=== PATIENT | male | born 1955 | race Caucasian/White ===

== ENCOUNTER 2021-06-30 08:15 | Outpatient (CLI) | payer MEDICARE, SELFPAY ==
--- NOTE | ~2021-06-30 | PE_ITS ---
EXAMINATION: PET skull to mid thigh DATE: 06/30/2021 11:15 INDICATION: Solitary pulmonary nodule TECHNIQUE: Blood glucose level was 83 mg/dL. 11.783 mCi of 18-fluorodeoxyglucose (18-FDG) was adminis tered i.v. Low dose computed tomography (CT) images were acquired from the base of the brain to the p roximal thighs for attenuation correction and anatomic localization. Positron emission tomography (PE T) images were acquired in the same distribution beginning 65 minutes after injection. Images includi ng fused PET/CT images were reconstructed in axial, coronal, and sagittal planes. Automated exposure control technique was employed. The dose-length product was 322.16mGy-cm. COMPARISON: None FINDINGS: Head/neck: There is symmetric increased activity in the oral cavity, palatine tonsils, parotid glands, submandi bular glands, laryngeal muscles, ocular muscles, scalene, sternocleidomastoid and anterior cervical p araspinal muscles, all without CT correlate, likely physiologic. No pathologically enlarged cervical lymphadenopathy or suspicious foci of increased FDG uptake in the visualized head or neck. Chest: Mild emphysema. There are scattered bilateral calcified pulmonary nodules along with numerous calcifi ed bilateral hilar and mediastinal lymph nodes consistent with old granulomatous disease. There are f ew scattered noncalcified pulmonary nodules all measuring less than 5 mm maximal diameter and without discernible FDG activity on PET although sensitivity for small nodule decide slow. Mild linear disco id atelectasis/scarring the bilateral lower lobes. No dominant solitary pulmonary nodule identified. Recommend correlation with any prior outside imaging. No pulmonary edema, pleural effusion or pneumot horax. Heart size is normal. Atherosclerotic coronary artery calcification. No pericardial effusion. Thoracic aorta is normal in caliber. No pathologically enlarged or FDG avid thoracic lymphadenopathy. Abdomen/pelvis/proximal thighs: Physiologic renal accumulation and excretion of FDG activity in the kidneys, bladder and along portio ns of ureters. Normal degree and heterogenous pattern of increased uptake throughout the liver withou t radiologic correlate or dominant FDG avid lesion. The gallbladder, pancreas, spleen and bilateral a drenal glands are normal. Moderate uptake scattered throughout the bowels without radiologic correlat e, also likely physiologic. No other abnormal foci of increased FDG uptake or pathologically enlarged lymphadenopathy in the abdomen, pelvis or proximal thighs. There is calcified atherosclerosis of the aorta and many of the other arteries. Fusiform ectasia of the infrarenal aorta measuring up to 3.3 c m in maximal diameter. No free intraperitoneal gas or fluid. No pathologically enlarged or FDG avid a bdominal or pelvic lymphadenopathy. Musculoskeletal: Mild thoracolumbar levocurvature. Chronic mild anterior wedging at L1. Mild to moderate thoracolumbar spondylosis. Otherwise mild scattered degenerative skeletal changes. No suspicious lytic, blastic or FDG avid bone lesions. IMPRESSION: 1. Multiple small calcified and noncalcified nodules scattered throughout both lungs the largest nonc alcified nodules measuring no greater than 5 mm and without evident FDG uptake which are most likely sequela of old granulomatous disease. Given the presence of mild emphysema, optional 12 month follow- up low-dose noncontrast chest CT could be obtained. No dominant solitary pulmonary nodule identified as per provided history and would recommend correlation with any prior outside imaging. Reviewed, dictated and finalized at location A. IMPRESSION: 1. Multiple small calcified and noncalcified nodules scattered throughout both lungs the largest noncalc
[2021-06-30 09:15] LABS: Basophils Absolute Auto 0.1 K/mm3 (0.0-0.1); Basophils Percent Auto 1.4 % (0.2-1.2); Eosinophils Absolute Auto 0.2 K/mm3 (0-0.3); Eosinophils Percent Auto 3.7 % (0-4.4); Hemoglobin 13.1 g/dL (14.0-18.0); Immature Granulocyte Absolute 0.02 K/mm3 (0.00-0.031); Immature Granulocyte Percent A 0.3 % (0-0.5); Lymphocytes Absolute Auto 1.65 K/mm3 (0.9-3.2); Lymphocytes Percent Auto 25.7 % (18.3-44.2); Mean Corpuscular Hemoglobin 31.3 pg (26-34); Mean Corpuscular Volume 98.1 fl (80-100); Mean Platelet Volume 9.5 fl (7.4-10.4); Monocytes Absolute Auto 0.6 K/mm3 (0.1-0.6); Monocytes Percent Auto 9.6 % (2.6-8.5); Neutrophils Absolute Auto 3.8 K/mm3 (1.3-6.7); Neutrophils Percent Auto 59.3 % (45.5-73.1); Platelet Count Result 280 k/mm3 (150-375); Red Blood Count 4.18 M/mm3 (4.6-6.20); Red Cell Distribution Width 13.8 % (11.5-14.5); White Blood Count 6.4 K/mm3 (4.5-10.0)
[2021-06-30 09:18] LABS: Glucose Point of Care 83 mg/dl (65-105)
[2021-06-30 10:21] LABS: Alanine Aminotransferase 23 U/L (4-50); Albumin Level 4.3 g/dL (3.5-5.1); Alkaline Phosphatase 123 U/L (38-126); Anion Gap 9 mmol/L (8-16); Aspartate Amino Transferase 28 U/L (17-59); Bilirubin,Total 0.4 mg/dL (0.2-1.3); Blood Urea Nitrogen 12 mg/dL (9-20); Calcium 9.8 mg/dL (8.4-10.2); Carbon Dioxide 25 mmol/L (22-30); Chloride 109 mmol/L (98-107); Cholesterol 155 mg/dL (0-200); Estimated Glomerular Filt Rate > 60; Glucose 100 mg/dL (65-110); HDL Direct 21 mg/dL; Potassium 4.3 mmol/L (3.4-5.0); Sodium 143 mmol/L (137-145); Triglycerides 115 mg/dL (<150)
[2021-06-30 10:32] LABS: LDL Cholesterol Direct 109 mg/dL
[2021-06-30 10:48] LABS: Prostate Specific Antigen 0.2 ng/mL (< OR = 4.0)
== END 2021-06-30 08:16 | disposition home or self-care (01) ==
PROVIDERS: PCP Internal Medicine; Visit Provider Internal Medicine
DX: Z12.5 Encounter for screening for malignant neoplasm of prostate (principal); R91.1 Solitary pulmonary nodule; D64.9 Anemia, unspecified; I10 Essential (primary) hypertension
CPT/HCPCS: 36415; 78815; 80053; 80061; 84153; 85025; A9552; G0103

== ENCOUNTER 2024-08-14 14:16 | Outpatient (CLI) | payer MEDICARE, SELFPAY ==
[2024-08-14 14:56] LABS: Basophils Absolute Auto 0.1 K/mm3 (0.0-0.1); Basophils Percent Auto 0.7 % (0.2-1.2); Eosinophils Absolute Auto 0.1 K/mm3 (0-0.3); Eosinophils Percent Auto 0.8 % (0-4.4); Hematocrit 34.8 % (42.0-52.0); Hemoglobin 11.1 g/dL (14.0-18.0); Immature Granulocyte Absolute 0.03 K/mm3 (0.00-0.031); Immature Granulocyte Percent A 0.3 % (0-0.5); Lymphocytes Absolute Auto 1.05 K/mm3 (0.9-3.2); Lymphocytes Percent Auto 11.6 % (18.3-44.2); Mean Corpuscular HGB Conc 31.9 g/dl (32-36); Mean Corpuscular Hemoglobin 30.9 pg (26-34); Mean Corpuscular Volume 96.9 fl (80-100); Monocytes Absolute Auto 0.5 K/mm3 (0.1-0.6); Monocytes Percent Auto 5.3 % (2.6-8.5); Neutrophils Absolute Auto 7.4 K/mm3 (1.3-6.7); Neutrophils Percent Auto 81.3 % (45.5-73.1); Platelet Count Result 365 k/mm3 (150-375); Red Blood Count 3.59 M/mm3 (4.6-6.20); Red Cell Distribution Width 13.4 % (11.5-14.5); White Blood Count 9.1 K/mm3 (4.5-10.0)
[2024-08-14 15:11] LABS: Alanine Aminotransferase 25 U/L (6-50); Alkaline Phosphatase 137 U/L (38-126); Anion Gap 8 mmol/L (4-12); Aspartate Amino Transferase 32 U/L (17-59); Bilirubin,Total 0.5 mg/dL (0.2-1.3); Blood Urea Nitrogen 25 mg/dL (9-20); Calcium 10.1 mg/dL (8.4-10.2); Carbon Dioxide 25 mmol/L (22-30); Chloride 106 mmol/L (98-107); Cholesterol 104 mg/dL (0-200); Estimated Glomerular Filt Rate 35; Glucose 123 mg/dL (65-110); HDL Direct 27 mg/dL; Potassium 4.3 mmol/L (3.4-5.0); Sodium 139 mmol/L (137-145); Triglycerides 97 mg/dL (<150)
[2024-08-14 15:23] LABS: LDL Cholesterol Direct 53 mg/dL
[2024-08-14 15:41] LABS: Prostate Specific Antigen 0.2 ng/mL (< OR = 4.0)
== END 2024-08-14 14:17 | disposition home or self-care (01) ==
PROVIDERS: PCP Internal Medicine; Visit Provider Internal Medicine
DX: Z12.5 Encounter for screening for malignant neoplasm of prostate (principal); I10 Essential (primary) hypertension
CPT/HCPCS: 36415; 80053; 80061; 84153; 85025

== ENCOUNTER 2024-12-25 13:02 | Outpatient (CLI) | payer MEDICARE, SELFPAY ==
[2024-12-25 14:10] LABS: Basophils Absolute Auto 0.1 K/mm3 (0.0-0.1); Basophils Percent Auto 0.7 % (0.2-1.2); Eosinophils Absolute Auto 0.1 K/mm3 (0-0.3); Hematocrit 34.1 % (42.0-52.0); Hemoglobin 10.6 g/dL (14.0-18.0); Immature Granulocyte Absolute 0.04 K/mm3 (0.00-0.031); Immature Granulocyte Percent A 0.5 % (0-0.5); Lymphocytes Absolute Auto 1.04 K/mm3 (0.9-3.2); Lymphocytes Percent Auto 12.5 % (18.3-44.2); Mean Corpuscular HGB Conc 31.1 g/dl (32-36); Mean Corpuscular Hemoglobin 30.7 pg (26-34); Mean Corpuscular Volume 98.8 fl (80-100); Mean Platelet Volume 9.2 fl (7.4-10.4); Monocytes Absolute Auto 0.6 K/mm3 (0.1-0.6); Monocytes Percent Auto 7.6 % (2.6-8.5); Neutrophils Absolute Auto 6.5 K/mm3 (1.3-6.7); Neutrophils Percent Auto 77.7 % (45.5-73.1); Platelet Count Result 236 k/mm3 (150-375); Red Blood Count 3.45 M/mm3 (4.6-6.20); Red Cell Distribution Width 13.8 % (11.5-14.5); White Blood Count 8.3 K/mm3 (4.5-10.0)
--- OUTSIDE RECORDS SUMMARY | 2024-12-25 14:26 | XMS_ITS | Continuity of Care Document ---
Author Organization [facility] Address [address] [place] [address] Phone Care Team Providers Care Film Casting Operator Name Role Phone Juarez OD, Celio Unavailable Unavailable Procedures Procedure Date Office/outpatient Visit, Est Office/outpatient Visit, Est Eye Exam, New Patient Advance Directives Directive Yes / No Effective Date File Name No Information Encounters Encounter Description Practice Location Reason(s) For Visit Diagnoses Date Provider Providers Copied on Encounter Office/outpat ient Visit, [facility], [address] [place] [address] [address], [place], [place], [id number], tel:[phone] SEC [facility] No Information 8-201 0 Juarez OD Celio. [address], [place], [address], [place]. tel:[phone] Office/outpat ient Visit, [facility], [address] [place] [address] [address], [place], [place], [address], [place] tel:[phone] SEC [facility] No Information 4-201 0 Juarez OD Celio. [address] [facility] [address], [place], [address], [place]. tel:[phone] [facility], [address] [place] [address] [address], [place], [place], [address], tel:[phone] SEC [facility] No Information 3-201 0 Juarez OD Celio. [address] , [address], [place], [address], [place]. tel:[phone] Referring Provider: Dario Lopez [address], [place], [address]. tel:[phone] Family History Family Member Type Diagnosis Age At Onset No Information Payers Payer name Insurance type Covered alliance party ID Authorlorettabeny medina(s) [facility] Commercial CI [id number] Social History Type Description Quantity Date Captured [...]
--- OUTSIDE RECORDS SUMMARY | 2024-12-25 14:26 | XMS_ITS | Continuity of Care Document ---
Author Organization [facility] Address [address] [place] [address] Phone Care Team Providers Care Wire Puller Name Role Phone Usha Aguilar DO Unavailable Unavailable Procedures Procedure Date Physical Exam Respirator Questionnaire Form Review Nov Physical Exam Advance Directives Directive Yes / No Effective Date File Name No Information Encounters Encounter Description Practice Location Reason(s) For Visit Diagnoses Date Provider Providers Copied on Encounter [facility], [address] [place] [address], [id number], tel:[phone] [facility] No Information 9 Lauren Kerr. [address] [place] [address], [place] [address], [place], [place], [id number] , . tel:[phone] Family History Family Member Type Diagnosis Age At Onset No Information Payers Payer name Insurance type Covered constitution party ID Authorgatito romerojonathan(s) [facility] [id number] Social History Type Description Quantity Date Captured [...]
--- OUTSIDE RECORDS SUMMARY | 2024-12-25 14:26 | XMS_ITS | Patient Health Record ---
Author Organization [facility] Address [address] [place] [address] Care Team Providers Care Microstrategy Architect Developer Name Role Phone Bao Collier Unavailable [phone] JUAN GORE Unavailable Unavailable REASON FOR REFERRAL No Information PROBLEMS Problem Type ICD Code Onset Dates Problem Status W/U Status Risk SNOMED Code Notes Problem Type 2 diabetes mellitus with diabetic chronic kidney disease (E11.22) Active confirmed Diabetic renal disease (634096445) Problem Hyperlipidemia, unspecified (E78.5) Active confirmed Hyperlip idemia (52665375) Problem Cerebral infarction, unspecified (I63.9) Active confirmed Cerebral infarction (841875542) Problem Peripheral vascular disease, unspecified (I73.9) Active confirmed Peripheral vasc ular disease (585889529) Problem Renal osteodystrophy (N25.0) Active confirmed Renal osteodyst rophy (62603591) Problem Secondary hyperparathyroidism of renal origin (N25.81) Active confirmed Secondary hyperparathyroidism of renal origin (96349435) Problem Tobacco use (Z72.0) Active confirmed To bacco use (674723830) Problem Essential hypertension (I10) Active confirmed Essential hypertension (50705494) Problem Chronic kidney disease, stage 3b (N18.32) Active confirmed Chronic kidney disease stage 3B (disorder) (903519757) Encounters Encounter Location Date Provider Diagnosis [place] [facility] [address] [place] [address] 12/12/2024 Bao Collier Chronic kidney disea se, stage 3b N18.32 ; Essential hypertension I10 ; Renal osteodystrophy N25.0 ; Secondary hyperparathyroidism of renal origin N25.81 ; Type 2 diabetes mellitus with diabetic chronic kidney disease E11.22 ; Hyperlipidemia, unspecified E78.5 ; Tobacco use Z72.0 ; Cerebral infarction, unspecified I63.9 and Peripheral vascular disease, unspecified I73.9 ASSESSMENTS Encounter Date Diagnosis Assessment Notes Treatment Notes Treatment Clinical Notes [...] Peripheral vascular disease, unspecified (ICD-10 - I73.9) PLAN OF TREATMENT Next Appt Details Provider Name:Bao Collier , 01/02/2025 02:30:00 PM, [address], [facility], [place], [address],
--- OUTSIDE RECORDS SUMMARY | 2024-12-25 14:26 | XMS_ITS | CONTINUITY OF CARE DOCUMENT ---
Author Name jered lawton Address Unknown Organization [facility] Address [address] [address] [place] [address] Phone [phone] Care Team Providers Care Software Validation Technician Name Role Phone Rohan Garza MD Unavailable Dario Lopez MD Unavailable [phone] Dario Lopez MD Unavailable PROBLEMS Condition Status Date Provider Notes Cardiovascular screening active Rohan hernandez MD Carotid artery disease active Rohan swan MD Smoker active Rohan Garza MD HTN essential active Rohan Garza MD CVA active Rohan Garza MD PVD active Rohan Garza MD Cataract, bilateral active Rohan Forbes Abnormal EKG active Rohan Garza MD Dyspnea on exertion active Rohan Forbes Claudication bilateral active Rohan swan MD Bradycardia active Abdi Meehant CAD active Rohan Garza MD Hyperlipidemia active Rohan Garza MD ENCOUNTERS Date Type Provider Location Encounter Diag nosis - In-person encounter Office Visit Rohan Garza MD [place] [facility] - In-person encounter Office Visit Rohan Garza MD [facility] - In-person encounter Office Visit Rohan Garza MD [facility] Hyperlipidemia - In-person encounter Office Visit Rohan Garza MD [facility] BradycardiaCAD - In-person encounter Office Visit Rohan Garza MD [place] Dyspnea on exertionClaudication bilateral - In-person encounter Office Visit Rohan Garza MD [facility] Cardiovascular screeningCarotid artery diseaseSmokerHTN essentialCVAPVDCataract, bilateralAbnormal EKG VITAL SIGNS Date Observation Value Provider Body Mass Index (Ratio) 20.21 kg/m2 Maureen Garza MD blood pressure, diastolic 67 mm[Hg] Malik espino Wilson blood pressure, systolic 114 mm[Hg] Dana gallegos Wilson oxygen saturation, oximetry 100 % [facility] pulse rate 92 /min [facility] weight E&M 125.2 [lb_av] [facility] blood pressure, cuff size regular Malik kenzie Wilson height E&M 66 [in_i] [facility] Body Mass Index (Ratio) 19.85 kg/m2 Maureen Garza MD blood pressure, cuff size regular Carlito bitha Sanchez blood pressure, diastolic 68 mm[Hg] Ta bitha Sanchez blood pressure, systolic 122 mm[Hg] Tab itha Sanchez oxygen saturation, oximetry 100 % Marion Sanchez pulse rate 69 /min Marion Sanchez respiratory rate E&M 12 /min Marion Sanchez weight E&M 123 [lb_av] Marion Sanchez height E&M 66 [in_i] Marion Sanchez Body Mass Index (Ratio) 19.50 kg/m2 Maureen Garza MD blood pressure, cuff size regular Ta bitha Sanchez blood pressure, diastolic 62 mm[Hg] Ta bitha Sanchez blood pressure, systolic 126 mm[Hg] Tab [facility] oxygen saturation, oximetry 99 % [facility] E&[facility] 12 /min [facility] pulse rate 72 /min [facility] weight E&M 120.8 [lb_av] [facility] height E&M 66 [in_i] [facility] Body Mass Index (Ratio) 19.37 kg/m2 Maureen Garza MD blood pressure, cuff size regular [facility] blood pressure, diastolic 58 mm[Hg] [facility] blood pressure, systolic 116 mm[Hg] [facility] oxygen saturation, oximetry 98 % [facility] respiratory rate E&M 14 /min [facility] iller pulse rate 76 /min [facility] weight E&M 120 [lb_av] [facility] height E&M 66 [in_i] [facility] Body Mass Index (Ratio) 19.53 kg/m2 Maureen Garza MD blood pressure, cuff size regular [facility] blood pressure, diastolic 86 mm[Hg] [facility] blood pressure, systolic 141 mm[Hg] [facility] pulse rate 90 /min [facility] oxygen saturation, oximetry 96 % [facility] respiratory rate E&M 16 /min [facility] iller weight E&M 121 [lb_av] [facility] height E&M 66 [in_i] [facility] Body Mass Index (Ratio) 20.01 kg/m2 Maureen Garza MD blood pressure, cuff size regular [facility] blood pressure, diastolic 68 mm[Hg] [facility] blood pressure, systolic 108 mm[Hg] [facility] respiratory rate E&M 16 /min Samia Sanabria iller oxygen saturation, oximetry 97 % Samia Sanchez pulse rate 78 /min Samia Sanchez weight E&M 124 [lb_av] Samia Sanchez height E&M 66 [in_i] Samia Sanchez ALLERGIES No Known Drug Allergies HISTORY OF MEDICATION USE Medication Status Instructions Dates Provider Indications Com ments atorvastatin 40 mg tablet active TAKE 1 TABLET BY MOUTH EVERY DAY oRhan Garza MD cilostazol 100 mg tablet active Take 1 tablet by mouth twice a day Rohan Garza MD diclofenac sodium 75 mg tablet,delayed release (DR/EC) active Rohan Garza MD lisinopril 20 mg tablet active Rohan Garza MD Stiolto Respimat 2.5-2.5 mcg/actuation mist active Rohan Garza MD clopidogrel 75 mg tablet active Take 1 tablet once a day Rohan Garza MD aspirin 81 mg tablet,delayed release (DR/EC) active Take 1 tablet by mouth once a day Rohan Garza MD SOCIAL HISTORY Date Observation Value Provider smoking status Current every day smoker Carmelo Vargas smoking status Current every day smoker Ne Garza MD smoking status Current every day smoker Rachel reynaldo Sanchez smoking status Current every day smoker Rachel reynaldo Sanchez number of grandchildren Rohan Garza MD smoking status Current every day smoker Rachel jacobs Daniel FUNCTIONAL STATUS Date Observation Value Provider HRA, CV Assess/Plan, Angina (inactive) Management Plan continue current therapy Abdi Vargas HRA, CV Assess/Plan, Angina (inactive) Management Plan continue current therapy Rohan Garza MD INSURANCE PROVIDERS Payer name Policy type / Coverage type Mary red green party ID [employer]AGE [address] (HMO POS) Medicare [id number] ADVANCE DIRECTIVES Name Date DISCUSSED - NO DECISION MADE TREATMENT PLAN Date Name Performer Cardiology:This visi t has been a part of the consistent, comprehensive, and ongoing management of the chronic medical condition(s) listed above for the patient. Abdi [facility] Cardiology: T his visit has been a part of the consistent, comprehensive, and ongoing management of the chronic medical condition(s) listed above for the patient. T he Patient was reencouraged to stop smoking. Abdi Meehan Cardiology Abdi [facility] Cardiology:This visi t has been a part of the consistent, comprehensive, and ongoing management of the chronic medical condition(s) listed above for the patient. BP today: 114/67 P rior BP: 122/68 (05/28/2024) His updated medication list for this problem includes: Lisinopril 20 Mg Tablet (Lisinopril) Aspirin 81 Mg Tablet,delayed Release (dr/ec) (Aspirin) ..... Take 1 tablet by mouth once a day Abdi [facility] Cardiology:This visi t has been a part of the consistent, comprehensive, and ongoing management of the chronic medical condition(s) listed above for the patient. Abdi [facility] Cardiology:This visi t has been a part of the consistent, comprehensive, and ongoing management of the chronic medical condition(s) listed above for the patient. His updated medication list for this problem includes: Atorvastatin 40 Mg Tablet (Atorvastatin) ..... Take 1 tablet by mouth every day Abdi [facility] Cardiology:This visi t has been a part of the consistent, comprehensive, and ongoing management of the chronic medical condition(s) listed above for the patient. Abdi Vargas Cardiology Rohan Forbes Cardiology Rohan Forbes Cardiology: H is updated medication list for this problem includes: Lisinopril 20 Mg Tablet (Lisinopril) Aspirin 81 Mg Tablet,delayed Release (dr/ec) (Aspirin) ..... Take 1 tablet by mouth once a day BP today: 122/68 P rior BP: 126/62 (02/27/2024) Rohan Garza MD Cardiology:The Patient was reenc ouraged to stop smoking. Rohan Garza MD Cardiology Rohan Forbes Cardiology:LDL 48 on recent labs c ontinue current medical therapy T his visit has been a part of the consistent, comprehensive, and ongoing management of the chronic medical condition(s) listed above for the patient. H is updated medication list for this problem includes: Atorvastatin 40 Mg Tablet (Atorvastatin) ..... Take 1 tablet by mouth every day Rohan Garza MD Cardiology:Will add atorvastatin 40mg for high LDL of 85. His updated medication list for this problem includes: Atorvastatin 40 Mg Tablet (Atorvastatin) ..... Take 1 tablet by mouth every day Rohan Garza MD Cardiology Rohan Forbes Cardiology:The Patie nt was reencouraged to stop smoking. Rohan Garza MD Cardiology:No CP Rohan Garza MD Cardiology: B P today: 126/62 P rior BP: 116/58 (12/19/2023) His updated medication list for this problem includes: Lisinopril 20 Mg Tablet (Lisinopril) Aspirin 81 Mg Tablet,delayed Release (dr/ec) (Aspirin) ..... Take 1 tablet by mouth once a day Rohan Garza MD Cardiology Rohan Forbes Cardiology Rohan Forbes Cardiology Rohan Forbes Cardiology Rohan Forbes Cardiology: B P today: 116/58 P rior BP: 141/86 (10/24/2023) His updated medication list for this problem includes: Lisinopril 20 Mg Tablet (Lisinopril) Aspirin 81 Mg Tablet,delayed Release (dr/ec) (Aspirin) ..... Take 1 tablet by mouth once a day Rohan Garza MD Cardiology Rohan Forbes Cardiology Rohan Forbes Cardiology Rohan Forbes Cardiology Rohan Forebs Cardiology: B P today: 141/86 P rior BP: 108/68 (08/22/2023) His updated medication list for this problem includes: Lisinopril 20 Mg Tablet (Lisinopril) Aspirin 81 Mg Tablet,delayed Release (dr/ec) (Aspirin) ..... Take 1 tablet by mouth once a day Rohan Garza MD Cardiology Rohan Forbes Cardiology: H is updated medication list for this problem includes: Clopidogrel 75 Mg Tablet (Clopidogrel) Aspirin 81 Mg Tablet,delayed Release (dr/ec) (Aspirin) ..... Take 1 tablet by mouth once a day Rohan Garza MD Cardiology Rohan Forbes Cardiology Rohan Forbes Cardiology Rohan Forbes Cardiology Rohan Forbes Cardiology Rohan Forbes Date Name LIPID PANEL Holter Monitor 48 hr Stress Regadenoson PROTHROMBIN TIME WIT H INR LIPID PANEL CBC (INCLUDES DIFF/P LT) BASIC METABOLIC PANE L W/EGFR Stress Regadenoson LIPID PANEL Arterial Duplex Bi-L ower EX Stress Regadenoson Complete Echo EKG HISTORY OF PROCEDURES Procedure Date Procedure Name Provider Procedure Notes S tatus Complex e/m visit add on Rohan Garza MD completed Complex e/m visit add on Rohan Garza MD completed
--- OUTSIDE RECORDS SUMMARY | 2024-12-25 14:26 | XMS_ITS ---
Author Organization [facility] Address [address] [place] [address] Care Team Providers Care Supervisor Liquid Yeast Name Role Phone Nando Bao Unavailable [phone] JUAN GORE Unavailable Unavailable PROBLEMS Problem Type ICD Code Onset Dates Problem Status W/U Status Risk SNOMED Code Notes Problem Chronic kidney disease, stage 3b (N18.32) Active confirmed Chronic kidney disease stage 3B (disorder) (442926071) Problem Essential hypertension (I10) Active confirmed Essential hypertension (29089889) Problem Renal osteodystrophy (N25.0) Active confirmed Renal osteodyst rophy (98789251) Problem Secondary hyperparathyroidism of renal origin (N25.81) Active confirmed Secondary hyperparathyroidism of renal origin (24635807) Problem Type 2 diabetes mellitus with diabetic chronic kidney disease (E11.22) Active confirmed Diabetic renal disease (790237906) Problem Hyperlipidemia, unspecified (E78.5) Active confirmed Hyperlip idemia (49272578) Problem Tobacco use (Z72.0) Active confirmed To bacco use (373049167) Problem Cerebral infarction, unspecified (I63.9) Active confirmed Cerebral infarction (323422180) Problem Peripheral vascular disease, unspecified (I73.9) Active confirmed Peripheral vasc ular disease (867727433) Encounters Encounter Location Date Provider Diagnosis [place] [facility] [address] [place] [address] 12/12/2024 Bao Collier Chronic kidney disea se, [...] Name:Bao Collier , 01/02/2025 02:30:00 PM, [address] [place] [address], Progress Notes * Greg WOOTEN EDOB:1955 (69 yo M)Acc No.[id number]:12/12/2024 Progress Notes Patient: Greg WOOTEN Provider: MD GISELLE, F.A.C.P, F.A.S.N. :1955 Age:69 Y Sex:Male Date:12/12/2024 Address:[address] [place] [address] Subjective: * Chief Complaints: * * Medical History: Objective: Assessment: * Assessment: 1. Chronic kidney disease, stage 3b - N18.32 (Primary) 2. Essential hypertension - I10 3. Renal osteodystrophy - N25.0 4. Secondary hyperparathyroidism of renal origin - N25.81 5. Type 2 diabetes mellitus with diabetic chronic kidney disease - E11.22 6. Hyperlipidemia, unspecified - E78.5 7. Tobacco use - Z72.0 8. Cerebral infarction, unspecified - I63.9 9. Peripheral vascular disease, unspecified - I73.9 Plan: * Treatment: * Billing Information: * Visit Code: 74856 Office Visit, New Pt., Level 5. * Procedure Codes: * Sign off status: Pending * Provider: MD GISELLE, F.A.C.P, F.A.S.N. Date: 12/12/2024
--- OUTSIDE RECORDS SUMMARY | 2024-12-25 14:26 | XMS_ITS | Data Portability ---
Author Organization [place] - [employer], Main Office Address [address] [place] [address] Care Team Providers Care Photography Assistant Name Role Phone JUAN GORE Primary Care Provider Assessment Encounter Date Assessment Date Assessment LastModified by Organization Details LastModified Time 2024 2024 Assessment: Nicotine smoke: 2 ppd 1980-present = 86 pack years Mild COPD Bilateral subcentimeter pulmonary nodules Lingular bronchiectasis Left basilar atelectasis Plan: The following were reviewed and explained to the patient: Chest CT 04/03/21 24 mm RLL pulmonary nodule, subtle RML miliary densities PET/CT 06/30/21 bilateral granulomatous disease with no FDG uptake Chest CT 04/05/22 numerous bilateral subcentimeter noncalcified pulmonary nodules, bilateral calcified granulomas, mediastinal and hilar calcified lymph nodes Chest CT 05/19/23 similar bilateral pulm nodules and subsegmental atelectasis Lab data 05/05/22 allergic to cat, Anti-MPO 5.8 units, P-ANCA 1:320 titers, C-ANCA 1:80 titers, FRANK speckled 1:[address] 06/12/24 bilateral subcentimeter pulm nodules, lingular bronchiectasis, left basilar atelectasis PFT 05/17/22 FEV1 1.92 L (78%) PFT 07/12/23 FEV1 2.01 L (83%) Patient declined rheumatologic consult. Differential diagnoses for pulmonary nodule: 1. malignant tumor 2. benign tumor 3. inflammatory processes 4. infectious process (viral, bacterial, fungal, atypical mycobacterial) The Fleischner Society pulmonary nodule recommendations below pertain to the follow-up and management of indeterminate pulmonary nodules detected incidentally on CT and are published by the Fleischner Society. The guideline does not apply to lung cancer screening, patients younger than 35 years, or patients with a history of primary cancer or immunosuppression. These recommendations reflect the 2017 revision 4, which supersedes prior versions published in 2005 and 2013. Multiple solid nodules <6 mm (<100 mm3) *low-risk patients: no routine follow-up required *high-risk patients: optional CT at 12 months Multiple solid nodules >6 mm (>100 mm3) *low-risk patients: CT at 3-6 months, then consider CT at 18-24 months *high-risk patients: CT at 3-6 months, then CT at 18-24 months Repeat PFT and chest CT one week before return. Nicotine cessation counseling provided. [place] for quitting nicotine include getting ready, getting support and encouragement, learning new skills and behaviors and being prepared to handle slips. Tips for dealing with cravings provided. Prevention of subsequent illnesses from nicotine addiction discussed. Comorbidities include but are not limited to hypertension, cerebrovascular disease, coronary heart disease, congestive heart failure, hyperlipidemia, COPD/asthma, peptic ulcer disease, esophagitis/gastri tis, and osteoporosis. Therapy options offered include: Quitting by total abstinence Receiving nicotine replacement therapy Undergoing hypnosis Filling a bupropion or varenicline prescription Enrolling in Quit For Life program Registering at [email or web address] Your Imagination Making a call to 2-653-LVXR-NOW ( ). A strong, clear, personalized message was given to the patient to quit smoking. The patient was urged to set a quit date. We discussed patient's barriers to quitting and I will be of assistance when patient is ready to quit. I encouraged patient to inform friends and family of plans to quit with a request for support. I encouraged the patient to remove all cigarettes from the environment. We reviewed any previous quit attempts and lessons learned from them. I encouraged total abstinence from smoking and advised the patient that drinking alcohol and/or associating with other smokers are associated with failure or relapse. Patient can enroll in [facility]'s smoking cessation class through Doretha Funez RN at . Enrollment is free and classes are held every tuesday of the month from 1:30 pm to 2:30 pm at the conference room next to the cafeteria on the ground floor. General information on COPD was covered. COPD affects breathing. Self-care skills such as not smoking, using medications as prescribed, oxygen therapy, and knowing when to contact the healthcare provider are covered. Diaphragmatic breathing and pursed lip breathing are explained and demonstrated. Positive lifestyle changes are introduced. Following these self-care skills will help in the management of COPD so the patient can stay out of the hospital. Continue albuterol 1 puff every 4 hours as needed. Continue Stiolto Respimat 2.5/2.5 mcg 2 puffs daily. The patient does not know how to accurately administer the inhalers. Today, the patient was shown how to take these medications. The proper technique for delivering these medications was instructed. The patient expressed a clear understanding and demonstrated back how to use these medications. Without the proper technique, the patient will not reap the benefits of these medications as the contents will not reach the lower airways as intended to be. Adherence to therapy is advocated. Nonadherence may lead to treatment failure, further progression of the condition, and other complications. Hospitals admissions are often the result of individuals not taking prescription medications accurately. Alternatively, greater adherence to medication regimens have shown to lower rates of hospitalization and decrease total medical costs in patients with chronic medical conditions. Advocated influenza vaccination annually and pneumonia vaccination EDILSON. Encouraged patient to adjust caloric intake to maintain/achieve ideal body weight, emphasizing on fruits, vegetables, whole grains, and fat-free or low-fat products. These include lean meats, poultry, fish, beans, eggs, and nuts and foods that are low in saturated fats, trans-fats, cholesterol, salt (sodium), and glycemic index. Stressed the importance of regular exercise up to the patient's capacity limits. In this case, we recommend 20 min daily walking, 2 days a week of resistance training. Patient to monitor BP daily and bring records to PCP for further management. Follow-up: 1 year, May 2025 [email or web address] Not available 2024 15:44:55 Plan of Treatment Reminders Order Date Submit Date Provider Last Modified By Organization Details Last Modified Time Details Appointments Establish ed Patient 15 2024 11:00A Justino Gore MD Not available Not available Not available Any 30 2024 11:00A Justino Horton MD Not available Not available Not available Lab CBC w/ auto diff [address] Outpatient Registration Lab/Ekg, [address], [place], [address], 12/25/2024 15:05:40 PSA, serum or plasma [address] Lab, [address] [facility] [address] [place] [address], [id number], 11/28/2024 10:52:46 CMP, serum or plasma [address] Lab, [address] [facility] [address] [place] [address], [address], 11/28/2024 10:52:46 lipid panel, serum [address] [facility], [address] [facility] [address] [place] [address], [address], 11/28/2024 13:52:31 CBC w/ auto diff [address] Lab, [address], [address], 11/28/2024 10:52:46 PSA, serum or plasma [address] (Lab), [address] [place], [address], 07/04/2023 09:20:49 CMP, serum or plasma 2022 023 [facility] (Lab), [address] [place], [address], 06/28/2023 15:11:24 lipid panel, serum 2022 023 [facility] (Lab), [address] [place], [address], 06/28/2023 15:11:27 CBC w/ auto diff 2022 023 [facility] (Lab), [address] [place], [address], 06/28/2023 14:44:22 Referral nephrolog ist referral - Please call patient to schedule an appointme nt. Thank you. 2024 025 CHARLA Collier MD (Nephrology, [address], [place], [address], 12/11/2024 18:04:41 Procedures None recorded. Surgeries None recorded. Imaging CT, chest, w/o contrast 2023 025 [facility] Not available 2024 15:52:42 US, duplex, carotid artery 2022 023 [facility] ([facility] Scheduling), [address] [facility], [place], [address], 07/06/2023 11:49:45 Medication Orders albuterol sulfate HFA 90 mcg/actua tion aerosol inhaler 2023 024 [facility]/Pharmacy #[id number], [address], [place], [address], 2024 15:45:05 Stiolto Respimat 2.5 mcg-2.5 mcg/actua tion solution for inhalatio n 2023 024 [facility]/Pharmacy #[id number], [address], [place], [address], 2024 15:45:00 clotrimaz ole-betam ethasone 1 %-0.05 % topical cream [address]/Pharmacy #[id number], [address], [place], [address], 06/12/2024 13:55:25 Patient TargetsNo targets recorded. Patient Instructions Encounter Date Encounter Id Patient Instructions Last Modified By Organization Details Last Modified Time 06/24/2023 [id number] [email or web address] Not available 06/24/2023 11:11:12 04/10/2024 [id number] dementia rating scale-2* Not available 04/10/2024 16:35:23 depression screening* Not available 04/10/2024 16:35:22 alcohol misuse* Not available 04/10/2024 16:35:23 multi-dimensiona l health assessment questionnaire* Not available 04/10/2024 16:35:23 advance directiv es: care instructions Not available 04/10/2024 16:35:22 [place] Advance Directives Not available 04/10/2024 16:35:23 advance care planning: care instructions Not available 04/10/2024 16:35:23 Personalized a lt Plan and Screening Recommendations Advance Directives - Do you have one? Yes You have indicated that you are capable of preparing your advance care directive Advance Directives - Do we have your advance directive on file in your health record? No, please bring in a copy at your earliest convenience Primary Prevention/Interven tion (prevents or decreases the chance of common diseases from occurring) Smoking Risk: Smoker Alcohol Misuse Screening: Negative Weight: Appropriate Physical activity: Need more exercise/physical activity minimum of 10-20 minutes of activity that causes mild breathlessness/day Nutrition: Good Average Refer to attached handout Heart-Healthy Diet: After Your Visit Fall Risk (screened today): Low Refer to attached handout Preventing Falls: After your Visit Vaccines Pneumococcal: Ordered Recommended today Recommended today, but you have declined No further needed Influenza: Your next one in the fall of this year Chronic Disease Risks Stroke: Low Risk Intermediate Risk I have no recommendations Act leigh diagnosis, Continue current treatment plan Heart Attack: Low risk Intermediate Risk I have no recommendations Act leigh diagnosis, Continue current treatment plan Clogging of the Arteries: Low risk Intermediate Risk I have no recommendations Act leigh diagnosis, Continue current treatment plan Diabetes: Low Risk I have no recommendations Secondary Prevention/Interven tion (detects treatable diseases before they may cause symptoms, disability, or ) Prostate Cancer Screening: No digital rectal exam screening necessary Colon Cancer Screening: Colonoscopy In: Ordered Date Screening Last Performed: __2009 Eye Disease Screening: Dementia Risk: Low I have no recommendations Depression Screening: Negative Active diagnosis, Continue current treatment plan [email or web address] Not available 04/10/2024 16:11:35 2024 [id number] complete PFT w/ post bronchodilator spirometry* [email or web address] Not available 2024 15:52:12 Reason for Referral Center Administrator Referral for Ki dney disease Please call patient to schedule an appointment. Thank you. Referring Physician: Juan Gore, Internal Medicine, Encounter Date: 12/06/2024 Results Created Date Observation Date Name Description Value Unit Range Abnormal Flag Note LastModifiedBy Organization Detail LastModifiedTime 06/28/2006/28/2023 CBC/C OMPLE TE BLD COUNT W/DIF F white blood cells 7.2 x10'3 /uL 4.2-10 .8 Not Available [facility] (Lab) [address] [place], [address], 06/28/2023 14:44:22 06/28/2006/28/2023 CBC/C OMPLE TE BLD COUNT W/DIF F red blood cells 4.31 x10'6 /uL 4.10-5 .80 Not Available [facility] (Lab) [address] [place], [address], 06/28/2023 14:44:22 06/28/20 23 06/28/2023 CBC/C OMPLE TE BLD COUNT W/DIF F hemoglobin 13.6 g/dL 13.2-1 7.0 Not Available [facility] (Lab) [address] [place], [address], 06/28/2023 14:44:22 06/28/2006/28/2023 CBC/C OMPLE TE BLD COUNT W/DIF F hematocrit 42.2 % 39.3-5 0.0 Not Available [facility] (Lab) [address] [place], [address], 06/28/2023 14:44:22 06/28/20 23 06/28/2023 CBC/C OMPLE TE BLD COUNT W/DIF F mean red cell volume 97.9 fL 80.0-9 7.0 high Not Available [facility] (Lab) [address] [place], [address], 06/28/2023 14:44:22 06/28/20 23 06/28/2023 CBC/C OMPLE TE BLD COUNT W/DIF F mean red cell hemoglobin 31.6 pg 27.0-3 3.0 Not Available [facility] (Lab) [address] [place], [address], 06/28/2023 14:44:22 06/28/20 23 06/28/2023 CBC/C OMPLE TE BLD COUNT W/DIF F mean RBC HGB concentratio n 32.2 g/dL 31.0-3 6.0 Not Available [facility] (Lab) [address] [place], [address], 06/28/2023 14:44:22 06/28/20 23 06/28/2023 CBC/C OMPLE TE BLD COUNT W/DIF F red cell distribution width 14.2 % 11.8-1 5.5 Not Available [facility] (Lab) [address] [place], [address], 06/28/2023 14:44:22 06/28/20 23 06/28/2023 CBC/C OMPLE TE BLD COUNT W/DIF F platelets 258 x10'3 /uL 150-40 0 Not Available [facility] (Lab) [address] [place], [address], 06/28/2023 14:44:22 06/28/20 23 06/28/2023 CBC/C OMPLE TE BLD COUNT W/DIF F mean platelet volume 9.8 fL 9.0-12 .4 Not Available [facility] (Lab) [address] [place], [address], 06/28/2023 14:44:22 06/28/20 23 06/28/2023 CBC/C OMPLE TE BLD COUNT W/DIF F neutrophils 71.3 % 39.0-7 2.0 Not Available [facility] (Lab) [address] [place], [address], 06/28/2023 14:44:22 06/28/20 23 06/28/2023 CBC/C OMPLE TE BLD COUNT W/DIF F lymphocytes 20.5 % 16.0-4 7.0 Not Available [facility] (Lab) [address] [place], [address], 06/28/2023 14:44:22 06/28/20 23 06/28/2023 CBC/C OMPLE TE BLD COUNT W/DIF F monocytes 5.4 % 5.0-12 .0 Not Available [facility] (Lab) [address] [place], [address], 06/28/2023 14:44:22 06/28/20 23 06/28/2023 CBC/C OMPLE TE BLD COUNT W/DIF F eosinophils 1.4 % 1.0-7. 0 Not Available [facility] (Lab) [address] [place], [address], 06/28/2023 14:44:22 06/28/20 23 06/28/2023 CBC/C OMPLE TE BLD COUNT W/DIF F basophils 1.1 % 0.0-2. 0 Not Available [facility] (Lab) [address] [place], [address], 06/28/2023 14:44:22 06/28/20 23 06/28/2023 CBC/C OMPLE TE BLD COUNT W/DIF F immature granulocytes 0.3 % 0.00-0 .50 Not Available [facility] (Lab) [address] [place], [address], 06/28/2023 14:44:22 06/28/20 23 06/28/2023 CBC/C OMPLE TE BLD COUNT W/DIF F neutrophils, absolute count 5.12 x10'3 /uL 1.5-8. 0 Not Available [facility] (Lab) [address] [place], [address], 06/28/2023 14:44:22 06/28/2006/28/2023 CBC/C OMPLE TE BLD COUNT W/DIF F lymphocytes, absolute count 1.47 x10'3 /uL 1.07-3 .43 Not Available [facility] (Lab) [address] [place], [address], 06/28/2023 14:44:22 06/28/20 23 06/28/2023 CBC/C OMPLE TE BLD COUNT W/DIF F monocytes, absolute count 0.39 x10'3 /uL 0.29-0 .99 Not Available [facility] (Lab) [address] [place], [address], 06/28/2023 14:44:22 06/28/2006/28/2023 CBC/C OMPLE TE BLD COUNT W/DIF F eosinophils, absolute count 0.10 x10'3 /uL 0.02-0 .53 Not Available [facility] (Lab) [address] [place], [address], 06/28/2023 14:44:22 06/28/20 23 06/28/2023 CBC/C OMPLE TE BLD COUNT W/DIF F basophils, absolute count 0.08 x10'3 /uL 0.01-0 .08 Not Available [facility] (Lab) [address] [place], [address], 06/28/2023 14:44:22 06/28/20 23 06/28/2023 CBC/C OMPLE TE BLD COUNT W/DIF F immature granulocytes ,absolute 0.02 x10'3 /uL 0.00-0 .05 Not Available [facility] (Lab) [address] [place], [address], 06/28/2023 14:44:22 06/28/20 23 06/28/2023 CBC/C OMPLE TE BLD COUNT W/DIF F nucleated red blood cells 0.0 % -0 Not Available [facility] (Lab) [address] [place], [address], 06/28/2023 14:44:22 06/28/20 23 06/28/2023 CBC/C OMPLE TE BLD COUNT W/DIF F NRBC# 0.00 x10'3 /uL Not Available [facility] (Lab) [address] [place], [address], 06/28/2023 14:44:22 06/28/2006/28/2023 COMPR EHENS LEIGH METAB OLIC PANEL sodium 143 mmol/ L 137-14 5 Not Available [facility] (Lab) [address] [place], [address], 06/28/2023 15:11:24 06/28/2006/28/2023 COMPR EHENS LEIGH METAB OLIC PANEL potassium 4.3 mmol/ L 3.5-5. 1 Not Available [facility] (Lab) [address] [place], [address], 06/28/2023 15:11:24 06/28/20 23 06/28/2023 COMPR EHENS LEIGH METAB OLIC PANEL chloride 107 mmol/ L 98-107 Not Available [facility] (Lab) [address] [place], [address], 06/28/2023 15:11:24 06/28/20 23 06/28/2023 COMPR EHENS LEIGH METAB OLIC PANEL carbon dioxide 28 mmol/ L 22-30 Not Available [facility] (Lab) [address] [place], [address], 06/28/2023 15:11:24 06/28/20 23 06/28/2023 COMPR EHENS LEIGH METAB OLIC PANEL anion gap 12.3 mmol/ L 14-22 low Not Available [facility] (Lab) [address] [place], [address], 06/28/2023 15:11:24 06/28/20 23 06/28/2023 COMPR EHENS LEIGH METAB OLIC PANEL glucose 130 mg/dL 70-99 high Not Available [facility] (Lab) [address] [place], [address], 06/28/2023 15:11:24 06/28/20 23 06/28/2023 COMPR EHENS LEIGH METAB OLIC PANEL BUN 21 mg/dL 8-19 high Not Available [facility] (Lab) [address] [place], [address], 06/28/2023 15:11:24 06/28/20 23 06/28/2023 COMPR EHENS LEIGH METAB OLIC PANEL creatinine 1.09 mg/dL 0.66-1 .25 Not Available [facility] (Lab) [address] [place], [address], 06/28/2023 15:11:24 06/28/2006/28/2023 COMPR EHENS LEIGH METAB OLIC PANEL GFR >60 Refer ence Range : [place] ge GFR Healt hy Adult : >60 mL/mi n/1.7 3 m2 Chron ic Kidne y Disea se: 15-60 mL/mi n/1.7 3 m2 Kidne y Failu re: <15/m L/min /1.73 m2 www.n iddk. nih.g ov The MDRD study equat ion has not been valid ated in child brie <18 years of age; pregn ant women ; the elder ly >85 years of age; or in some racia l or ethni c subgr oups, such as Hispa nics. Outsi de the valid ated hanh eters , estim ated GFR is less accur ate, requi ring clini sade judgm ent on a case- by-ca se basis . Clini sade inter preta tion for other races and ages must be made by the clini james. The MDRD study equat ion has not been valid ated for the evalu ation of serum creat inine relat ed to nutri anita l statu s or medic ation usage . For perso ns <18 years of age, a pedia tric GFR calcu lator is avail able on the [facility] websi te: https ://merlyn chisholm.o rg/pr ofess ional s/kdo qi/gf r_cal culat or Not Available [facility] (Lab) [address] [place], [address], 06/28/2023 15:11:24 06/28/20 23 06/28/2023 COMPR EHENS LEIGH METAB OLIC PANEL alkaline phosphatase 111 U/L 38-126 Not Available [facility] (Lab) [address] [place], [address], 06/28/2023 15:11:24 06/28/2006/28/2023 COMPR EHENS LEIGH METAB OLIC PANEL alanine aminotransfe rase 24 U/L 0-50 Not Available [facility] (Lab) [address] [place], [address], 06/28/2023 15:11:24 06/28/20 23 06/28/2023 COMPR EHENS LEIGH METAB OLIC PANEL aspartate aminotransfe rase 26 U/L 15-46 Not Available [facility] (Lab) [address] [place], [address], 06/28/2023 15:11:24 06/28/20 23 06/28/2023 COMPR EHENS LEIGH METAB OLIC PANEL bilirubin, total 0.30 mg/dL 0.20-1 .30 Not Available [facility] (Lab) [address] [place], [address], 06/28/2023 15:11:24 06/28/20 23 06/28/2023 COMPR EHENS LEIGH METAB OLIC PANEL calcium 10.2 mg/dL 8.4-10 .2 Not Available [facility] (Lab) [address] [place], [address], 06/28/2023 15:11:24 06/28/2006/28/2023 COMPR EHENS LEIGH METAB OLIC PANEL total protein 7.2 g/dL 6.3-8. 2 Not Available [facility] (Lab) [address] [place], [address], 06/28/2023 15:11:24 06/28/2006/28/2023 COMPR EHENS LEIGH METAB OLIC PANEL albumin 4.2 g/dL 3.0-4. 4 Not Available [facility] (Lab) [address] [place], [address], 06/28/2023 15:11:24 06/28/20 23 06/28/2023 COMPR EHENS LEIGH METAB OLIC PANEL globulin 3.0 g/dL 2.6-4. 2 Not Available [facility] (Lab) [address] [place], [address], 06/28/2023 15:11:24 06/28/2006/28/2023 COMPR EHENS LEIGH METAB OLIC PANEL A/G ratio 1.4 ratio 1.0-2. 0 Not Available [facility] (Lab) [address] [place], [address], 06/28/2023 15:11:24 06/28/2006/28/2023 LIPID PANEL cholesterol 172 mg/dL 140-19 9 NIH TOBIN NSUS RECOM MENDA TION FOR CONNOR STERO L: ADULT CHILD LOW RISK: <200 <170 BORDE RLINE : <200- 239 ----- HIGH RISK: >240 >200 Not Available [facility] (Lab) [address] [place], [address], 06/28/2023 15:11:27 06/28/20 23 06/28/2023 LIPID PANEL triglyceride s 96 mg/dL 0-150 NIH TOBIN NSUS REPOR T RECOM MENDA TION FOR TRIGL YCERI GRACIE: ADULT CHILD LOW RISK: <150 ----- BODER LINE: 150-1 99 ----- HIGH RISK: >200 ----- Not Available [facility] (Lab) [address] [place], [address], 06/28/2023 15:11:27 06/28/2006/28/2023 LIPID PANEL HDL cholesterol 32 mg/dL 40- low Not Available [facility] (Lab) [address] [place], [address], 06/28/2023 15:11:27 06/28/2006/28/2023 LIPID PANEL LDL cholesterol, calculated 121 mg/dL 0-130 NIH TOBIN NSUS REPOR T RECOM MENDA TIONS FOR LDL: ADULT CHILD LOW RISK <130 <110 (OPTI MAL LDL) <100 ----- CLAUDE RLINE : 130-1 59 ----- HIGH RISK: >160 >130 A TRIGL YCERI DE RESUL T >400 INVAL IDATE S THE CALCU LATIO N FOR LDL FRACT IONAT ION - THE LDL RESUL T WILL NOT BE REPOR JD. Not Available [facility] (Lab) [address] [place], [address], 06/28/2023 15:11:27 06/28/20 23 06/28/2023 PSA SCREE N PSA medicare screen 0.20 NG/mL 0.00-4 .00 Not Available [facility] (Lab) [address] [place], [address], 06/28/2023 15:58:08 07/12/2007/12/2023 HEMOG LOBIN A1C HA1C 5.5 % 4.0-6. 0 Diabe marcela Scree jimena Crite roldan: <5.7% Consi stent with absen ce of diabe marcela 5.7-6 .4% Consi stent with incre ased risk for diabe marcela (pred iabet es) >OR=6 .5% Consi stent with diabe marcela REFER ENCE: Diabe marcela Care 2016, 39(Beatty ppl.1 ):s13 -s22 Not Available [facility] (Lab) [address] [place], [address], 07/12/2023 15:05:35 07/06/20 23 07/06/2023 US, duple x, carot id arter y No observ ation record ed. [email or web address] [facility] [address] [place], [address], 07/06/2023 16:41:50 07/31/20 23 07/12/2023 compl ete PFT w/ post [facility] hodil ator vale metry * No observ ation record ed. BARCODE [facility] ([facility] Sched[facility]) [address] [place], [address], 07/31/2023 14:11:50 08/31/20 23 08/30/2023 lower extre mity elect romyo gram (PROC ) No observ ation record ed. Not Available 2022 15:10:01 06/12/20 24 06/12/2024 CT, chest , w/o contr ast No observ ation record ed. [email or web address] [facility] [address] [place], [address], 06/12/2024 13:54:40 Result Notes None recorded. Problems Name Problem SNOMED Code Status Onset Date Resolution Date Notes Provider Name and Address Organization Details Recorded Time Candidiasi s of skin 73054298 Active 2022 Not Available [employer] 3 06:26:40 Hyperglyce tyson 35470198 Active 2022 Not Available [employer] 3 06:26:40 Carotid artery stenosis 97805940 Active 2022 Not Available [employer] 3 06:26:40 Peripheral vascular disease 480249349 Active 2022 legs Juan Gore MD [address] [facility], [place], [address] , [facility] [employer] [facility] 3 15:09:58 Coronary arterioscl erosis 36081708 Active 2023 Juan Gore MD [address], [address], [place], [address] , [facility] [employer] [facility] 4 16:34:30 Low back pain 218756255 Active 2023 Radha vance, RMA null, CT tabulate [facility] [employer] [facility] 4 15:01:41 Kidney disease 64897297 Active 2024 Juan Gore MD [address], [place], [address] , [facility] tabulate [facility] [employer] [facility] 5 14:52:49 Chronic obstructiv e pulmonary disease 88330741 Active Not Available [facility] [facility] 3 06:26:40 Chronic depression 876733938 Active Not Available [facility] 3 06:26:40 Cerebrovas cular accident 752706575 Active Not Available [facility] 3 06:26:40 Anemia 698632526 Active 2017 Not Available [facility] 3 06:26:40 Arthritis 6897882 Active Not Available [facility] 3 06:26:40 Multiple nodules of lung 590934209 Active 2021 Not Available [facility] 3 06:26:40 Multiple nodules of lung 676787514 Completed 202004/06/2021 Not Available [facility] 3 04:53:19 Essential hypertensi on 16314797 Active Not Available [facility] 3 06:26:40 Smoker 12563310 Active 2008 Not Available [facility] 3 06:26:40 Dental caries 09835280 Active Not Available [facility] 3 06:26:40 Notes:Medical History: TIA 1 990 Depression Bilateral cataracts Rhinitis to cat IgE 98 IU/mL Eosinophils 120/uL Hypertension Alpha-1 antitrypsin PiMM 216 mg% Nicotine dependence Mild COPD Anti-MPO 5.8 units P-ANCA 1:320 titers C-ANCA 1:80 titers FRANK speckled 1:160 Bilateral pulmonary nodules Subsegmental atelectasis RAMONE 3.9 x 3.4 cm AAA Normocytic anemia Thoracic DDD Procedure History: Colonoscopies 2008, 2013, 2018 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 Procedures Surgical History Date Name Laterality Status Provider Name and Address Organization Details Recorded Time 4 Medicare Wellness CPT Code, subsequent completed Radha Butt [facility] 08/08/2024 15:01:32 4 Advanced Care Planning completed Radha Butt [facility] 08/08/2024 15:01:31 4 Medicare Wellness CPT Code, subsequent completed Liv Wilson [facility] 04/10/2024 15:22:48 4 Advanced Care Planning completed Roxana Gómez RN [facility] 04/10/2024 16:06:55 3 Medicare Wellness CPT Code, subsequent completed Cecy Batista RN [facility] 02/22/2023 11:23:36 Imaging Results Imaging Date Name Status LastModified by Organization Details LastModified Time 07/06/2023 US, duplex, carotid artery completed [email or web address] [facility] [address] [place], [address], 07/06/2023 16:41:50 07/12/2023 complete PFT w/ post bronchodilator spirometry* completed [facility] ([facility]) [address] [place], [address], 07/31/2023 14:11:50 08/30/2023 lower extremity electromyogram (PROC) [email or web address] Information not available 09/07/2023 15:10:01 06/12/2024 CT, chest, w/o contrast completed [address] [place], [address], 06/12/2024 13:54:40 Procedure Notes None recorded. Medical Equipment None Reported. Allergies No known drug allergies Medications Name Sig Start Date Stop Date Status Note LastModified by Organization Details LastModified Time amoxicillin 500 mg capsule 02/14 completed Not Available Not Available Not Available atorvastati n 40 mg tablet Take 1 tablet every day by oral route. active Not Available Not Available No t Available cilostazol 100 mg tablet Take 1 tablet twice a day by oral route. active Not Available Not Available No t Available azithromyci n 250 mg tablet 09/21 completed Not Available Not Available Not Available lisinopril 20 mg tablet TAKE 1 TABLET BY MOUTH EVERY DAY 2024 active Not Available Not Available Not Avai lable prednisone 20 mg tablet 09/21 completed Not Available Not Available Not Available acetaminoph en 300 mg-codeine 30 mg tablet 02/14 completed Not Available Not Available Not Available clopidogrel 75 mg tablet TAKE 1 TABLET BY MOUTH EVERY DAY 03/02 completed Not Available Not Available Not Available Aspir-Low 81 mg tablet,leatha yed release Take 1 tablet every day by oral route. 05/05 completed Not Available Not Available Not Available clotrimazol e-betametha sone 1 %-0.05 % topical cream APPLY TO THE AFFECTED AND SURROUNDI NG AREAS OF SKIN BY TOPICAL ROUTE 2 TIMES PER DAY IN THE MORNING AND EVENING FOR 2 WEEKS 06/12 completed Not Available Not Available Not Available diclofenac sodium 75 mg tablet,leatha yed release TAKE 1 TABLET BY MOUTH TWICE A DAY NEEDED 2023 active JUDD NOV ok to rf Not Available Not Available Not Available albuterol sulfate HFA 90 mcg/actuati on aerosol inhaler Inhale 1 puff every 4 hours by inhalatio n route as needed. 2023 active Not Available Not Available Not Avai lable Vitamin D2 1,250 mcg (50,000 unit) capsule Take 1 capsule every week by oral route for 90 days. 09/21 completed Not Available Not Available Not Available GaviLyte-N 420 gram oral solution active Not Available Not Available Not Available Prevnar 13 (PF) 0.5 mL intramuscul ar syringe PHARMACIS T ADMINISTE RED IMMUNIZAT ION ADMINISTE RED AT TIME OF DISPENSIN G 10/18 completed Not Available Not Available Not Available Combivent Respimat 20 mcg-100 mcg/actuati on solution for inhalation INHALE ONE PUFF BY MOUTH FOUR TIMES DAILY NEEDED 05/20 completed Not Available Not Available Not Available Stiolto Respimat 2.5 mcg-2.5 mcg/actuati on solution for inhalation INHALE 2 PUFFS BY MOUTH EVERY DAY 2023 active Not Available Not Available Not Avai lable Fluzone High-Dose 2019-20 (PF) 180 mcg/0.5 mL intramuscul ar syringe PHARMACIS T ADMINISTE RED IMMUNIZAT ION ADMINISTE RED AT TIME OF DISPENSIN G 10/18 completed Not Available Not Available Not Available Vitals Date Recorded Body height Body mass index (BMI) Body weight Body temperature Heart rate Oxygen saturation Oxygen saturation in Arterial blood by Pulse oximetry Systolic blood pressure Diastolic blood pressure Provider Name and Address Organization Details Last Updated DateTime 3 165.1 cm 20.5 kg/m2 18166.8 6 g 97.1 [degF] 68 /min 97 % 97 % 138 mm[Hg] 68 mm[Hg] MONO Brown [facility] [employer] 3 11:14:41 Date Recorded Body height Body mass index (BMI) Body weight Body temperature Heart rate Oxygen saturation Oxygen saturation in Arterial blood by Pulse oximetry Systolic blood pressure Diastolic blood pressure Provider Name and Address Organization Details Last Updated DateTime 4 165.1 cm 20 kg/m2 16931.0 8 g 98.7 [degF] 70 /min 98 % 98 % 140 mm[Hg] 70 mm[Hg] Liv Wilson [facility] [employer] 4 15:19:41 Date Recorded Pain severity - 0-10 verbal numeric rating [Score] - Reported Provider Name and Address Organization Details Last Updated DateTime 04/10/2024 0 Roxana Gómez RN [facility] [employer] 04/10/2024 15:47:01 Date Recorded Body height Body mass index (BMI) Body weight Body temperature Heart rate Heart rate Oxygen saturation Oxygen saturation in Arterial blood by Pulse oximetry Respiratory rate Systolic blood pressure Diastolic blood pressure Provider Name and Address Organization Details Last Updated DateTime 4 165.1 cm 20.5 kg/m2 95733.3 g 98.3 [degF] 85 /min 85 /min 98 % 98 % 16 /min 124 mm[Hg] 66 mm[Hg] Genevieve Carey MA [facility] [employer] [facility] 4 15:27:40 Date Recorded Body height Body mass index (BMI) Body weight Body temperature Heart rate Oxygen saturation Oxygen saturation in Arterial blood by Pulse oximetry Systolic blood pressure Diastolic blood pressure Provider Name and Address Organization Details Last Updated DateTime 4 165.1 cm 20.3 kg/m2 33034.2 7 g 97.7 [degF] 90 /min 94 % 94 % 128 mm[Hg] 64 mm[Hg] Radha alejandro Gerardo [facility] [employer] [facility] 4 15:03:13 Date Recorded Body height Body mass index (BMI) Body weight Body temperature Heart rate Oxygen saturation Oxygen saturation in Arterial blood by Pulse oximetry Systolic blood pressure Diastolic blood pressure Provider Name and Address Organization Details Last Updated DateTime 5 165.1 cm 19.6 kg/m2 84688.9 g 97.5 [degF] 97 /min 95 % 95 % 136 mm[Hg] 70 mm[Hg] Radha alejandro Gerardo CT tabulate [facility] [employer] [facility] 5 14:30:09 Social History Question Answer Notes LastModified by Organization Details LastModified Time Tobacco Smoking Status Current Every Day Smoker Not Available [facility] 11/17/2022 04:13:57 Do You Have An Advance Directive? Yes MIGRATION.030 [id number] Information not available 11/17/2022 What Is Your Level Of Alcohol Consumption? None MIGRATION.030 [id number] Information not available 11/17/2022 Are You Blind Or Do You Have Difficulty Seeing? No MIGRATION.030 024598 Information not available 11/17/2022 Is Blood Transfusion Acceptable In An Emergency? Yes [email or web address] Information not available 04/10/2024 What Is Your Level Of Caffeine Consumption? Moderate MIGRATION.030 803104 Information not available 11/17/2022 How Much Tobacco Do You Chew? None MIGRATION.030 613714 Information not available 11/17/2022 What Is Your Code Status? Other [email or web address] Information not available 04/10/2024 In The 14 Days Before Symptom Onset, Have You Had Close Contact With A Laboratory-conf irmed COVID-19 While That Case Was Ill? No MIGRATION.030 [id number] Information not available 11/17/2022 In The 14 Days Before Symptom Onset, Have You Had Close Contact With A Person Who Is Under Investigation For COVID-19 While That Person Was Ill? No MIGRATION.0301 [id number] Information not available 11/17/2022 Are You Currently Employed? No [email or web address] Information not available 04/10/2024 Are You Deaf Or Do You Have Serious Difficulty Hearing? No MIGRATION.0301 [id number] Information not available 11/17/2022 What Type Of Diet Are You Following? REGULAR MIGRATION.030 222912 Information not available 11/17/2022 Which Illicit Or Recreational Drugs Have You Used? None MIGRATION.030 015683 Information not available 11/17/2022 What Is The Highest Grade Or Level Of School You Have Completed Or The Highest Degree You Have Received? [id number] [email or web address] Information not available 04/10/2024 Do You Have An Electrostatic Air Filter? 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 0 [email or web address] Information not available 04/10/2024 Have There Been Any Changes To Your Family Or Social Situation? No MIGRATION.0301 102895 Information not available 11/17/2022 What Is The Fluoride Status Of Your Home? Fluoridated [email or web address] Information not available 02/22/2023 Are There Any Guns Present In Your Home? Yes MIGRATION.0301 [id number] Information not available 11/17/2022 Do You Have A Humidifier? Yes MIGRATION.0301 555649 Information not available 11/17/2022 Do You Use Insect Repellent Routinely? No MIGRATION.0301 957585 Information not available 11/17/2022 Where Do You Live? SingleLevelHouse MIGRATION.0301 138809 Information not available 11/17/2022 Presence Of Domestic Violence No [email or web address] Information not available 02/22/2023 Guns Present In The Home? Yes [email or web address] Information not available 02/22/2023 Are You Able To Care For Yourself? Yes Information not available 02/22/2023 Are You Blind Or Do Yo Have Difficulty Seeing? No Cataracts [email or web address] Information not available 02/22/2023 Are You Deaf Or Do You Have Serious Difficulty Hearing? No [email or web address] Information not available 02/22/2023 General Stress Level? Moderate [email or web address] Information not available 02/22/2023 Live Alone Of With Others? Alone [email or web address] Information not available 04/10/2024 Do You Have A Medical Power Of Agricultural Adviser? Yes [email or web address] Information not available 04/10/2024 Do You Have Moisture Problems In Your Home? No MIGRATION.0301 [id number] Information not available 11/17/2022 What Was The Date Of Your Most Recent Tobacco Screening? 04/10/2024 [email or web address] Information not available 04/10/2024 How Many Children Do You Have? 0 [email or web address] Information not available 04/10/2024 What Is Your Current Pack Years? [email or web address] Information not available 02/22/2023 Do You Have Any Pets? Yes [email or web address] Information not available 04/10/2024 What Is Your Relationship Status? [email or web address] Information not available 04/10/2024 Do You Use Your Seat Belt Or Car Seat Routinely? Yes [email or web address] Information not available 04/10/2024 Are You Sexually Active? No [email or web address] Information not available 04/10/2024 Do You Have Smoke And Carbon Monoxide Detectors In Your Home? Yes States Does Have Thiem [email or web address] Information not available 04/10/2024 At What Age Did You Start Smoking Tobacco? 16 MIGRATION.0301 [id number] Information not available 11/17/2022 Are You Passively Exposed To Smoke? No MIGRATION.0301 [id number] Information not available 11/17/2022 Are There Any Smokers In Your House? No [email or web address] Information not available 04/10/2024 How Much Tobacco Do You Smoke? 1 PPD As Of 04/10/2024 States Down To A Pack A Week. [email or web address] Information not available 04/10/2024 What Types Of Sporting Activities Do You Participate In? None [email or web address] Information not available 04/10/2024 Do You Feel Stressed (tense, Restless, Nervous, Or Anxious, Or Unable To Sleep At Night)? [id number] [email or web address] Information not available 04/10/2024 Do You Use Any Illicit Or Recreational Drugs? No [email or web address] Information not available 04/10/2024 Do You Use Sunscreen Routinely? No MIGRATION.0301 217541 Information not available 11/17/2022 Has Tobacco Cessation Counseling Been Provided? Yes Offered And Refused [email or web address] Information not available 04/10/2024 How Many Years Have You Smoked Tobacco? 51 [email or web address] Information not available 02/22/2023 Have You Recently Traveled Abroad? No MIGRATION.0301 209666 Information not available 11/17/2022 Do You Have Any Dietary Restrictions? No [email or web address] Information not available 04/10/2024 Do You Or Have You Ever Used Any Other Forms Of Tobacco Or Nicotine? No [email or web address] Information not available 04/10/2024 Sex: Male Functional Status Question Answer Note LastModified by [employer] Details LastModified Time Do you have difficulty walking or climbing stairs? No MIGRATION.[id number] 026 Information not available 11/17/2022 Do you have transportation difficulties? No MIGRATION.3013128 026 Information not available 11/17/2022 Are you able to walk? YESWOREST MIGRATION.1666730 026 Information not available 11/17/2022 Do you have difficulty doing errands alone? No MIGRATION.9288285 026 Information not available 11/17/2022 Are you able to care for yourself? Yes MIGRATION.[id number] 026 Information not available 11/17/2022 Do you have difficulty dressing or bathing? No MIGRATION.[id number] 026 Information not available 11/17/2022 What is your exercise level? None [email or web address] Information not available 04/10/2024 Mental Status Question Answer Note LastModified by [employer] Details LastModified Time Do you have difficulty concentrating, remembering or making decisions? No moments of forgetfulness [email or web address] Information not available 04/10/2024 Family History Relationship Description Onset Age of this Age Resolved Age Notes LastModified by Organization Details LastModified Time Mother Liver cell carcinoma MIGRATION.443 [id number] Not available 11/17/2022 04:43:58 Medical History No medical history recorded. Immunizations Vaccine Type Date Status Note Provider Nam e and Address Organization Details Recorded Time COVID-19, mRNA, LNP-S, PF, marisol-sucrose, 30 mcg/0.3 mL 4 completed SAUL Harp, CT tabulate [facility] [employer] 08/07/2024 15:19:44 influenza, unspecified formulation 4 completed SAUL Harp, [employer] [place] [facility] [employer] 08/07/2024 15:20:57 Influenza, high-dose, quadrivalent, PF 3 completed Juan Gore MD [address], [address], [facility] tabulate [facility] [employer] 06/24/2023 13:23:38 COVID-19, mRNA, LNP-S, PF, 30 mcg/0.3 mL dose 2 completed Not Available [facility] 08/09/2023 06:26:40 SARS-COV-2 (COVID-19) vaccine, UNSPECIFIED 1 completed Not Available [facility] 08/09/2023 06:26:40 SARS-COV-2 (COVID-19) vaccine, UNSPECIFIED 1 completed Not Available [facility] 08/09/2023 06:26:40 SARS-COV-2 (COVID-19) vaccine, UNSPECIFIED 1 completed Not Available [facility] 08/09/2023 06:26:40 Pneumococcal conjugate PCV 13 9 completed Not Available [facility] 08/09/2023 06:26:40 Influenza, high-dose, quadrivalent, PF 9 completed Not Available [facility] 08/09/2023 06:26:40 Influenza, high-dose, quadrivalent, PF 2 completed Not Available [facility] 08/09/2023 06:26:40 Influenza, high-dose, quadrivalent, PF 1 completed Not Available [facility] 08/09/2023 06:26:40 Influenza, high-dose, quadrivalent, PF 0 completed Not Available [facility] 08/09/2023 06:26:40 Pneumococcal conjugate PCV 13 7 completed Not Available [facility] 08/09/2023 06:26:40 Influenza, split virus, quadrivalent, preservative 6 completed Not Available [facility] 08/09/2023 06:26:40 pneumococcal polysaccharide PPV23 5 completed Not Available [facility] 08/09/2023 06:26:40 Influenza, split virus, quadrivalent, PF 9 completed Not Available [facility] 08/09/2023 06:26:40 Influenza, split virus, trivalent, preservative 4 completed Not Available [facility] 08/09/2023 06:26:40 Influenza, split virus, trivalent, preservative 3 completed Not Available [facility] 08/09/2023 06:26:40 Past Encounters Encounter ID Performer Location Encounter Start Date Encounter Closed Date Diagnosis/Indication Diagnosis SNOMED-CT Code Diagnosis ICD10 Code Diagnosis Note [id number] [facility] [address] [place] [address] 02/17/2021 00:00:00 02/17/2021 12:33:19 [id number] [facility] [address] [place] [address] 06/22/2021 00:00:00 06/22/2021 12:59:34 [id number] [facility] [address] [address] 10/23/2021 00:00:00 10/23/2021 10:34:10 [id number] [facility] [address] [place] [address]. [place] [address] 02/24/2022 00:00:00 02/24/2022 13:29:20 [id number] [facility] [address] [address] 05/05/2022 00:00:00 05/20/2022 15:17:52 [id number] [facility] [address] [address] 05/20/2022 00:00:00 05/20/2022 15:36:54 [id number] [facility] Internal Med [address] [place] [address] 06/29/2022 00:00:00 06/29/2022 12:42:06 [id number] [facility] [address] [address] 08/19/2022 00:00:00 08/19/2022 12:24:58 [id number] Juan Gore MD [facility] Internal Med [place] [address] [facility] [address] 02/22/2023 11:06:30 02/22/2023 11:38:41 Cerebrovascular accident 454693392 I63.9 on meds, no recurrence Chronic ob structive pulmonary disease 41808830 J44.9 better with inhalers Low back pain 597783114 M54.50 meds help Essential hypertension 87757108 I10 under control Anemia 306024294 D64.9 improved, labs next time Arthritis 0564362 M19.90 meds help prn Smoker 34554911 F17.200 advised to quit Multiple n odules of lung 100482625 R91.8 needs LDCT every year, Chronic depression 61107 0009 F34.1 no meds needed Adult heal th examination 969338500 Z00.00 Screening for disorder 407270339 Z13.9 Screening for malignant neoplasm of colon 533301099 Z12.11 [id number] Tenzin Horton MD [facility] [address] [place] [address] 05/31/2023 11:46:55 06/01/2023 08:49:18 Chronic obstructive pulmonary disease 06109869 J44.9 Multiple n odules of lung 641419651 R91.8 Smoker 08273193 F17.218 F17.219 Z87.998 [id number] Juan Gore MD [facility] Internal Med [place] [address] [facility] [place] [address] 06/24/2023 10:59:44 06/24/2023 11:49:26 Essential hypertension 19659629 I10 under control Chronic ob structive pulmonary disease 35171521 J44.9 inhalers HELP Cerebrovas cular accident 507615105 I63.9 on meds, no recurrence Low back pain 460337690 M54.50 meds help Anemia 687403914 D64.9 improved, Arthritis 0633017 M19.90 meds help prn Smoker 39253491 F17.200 advised to quit Multiple n odules of lung 277229493 R91.8 needs LDCT every year, Chronic depression 97459 000 F34.1 no meds needed Adult heal th examination 777214317 Z00.00 Colonoscop y 2015 nl, 10yrsP, 07/10Pneum ovax 04/2015Pre vnar 12/2016, 07/2019FLU - 06/24/2023 COVID- 12/18/20, 01/08/21 Administra tion of influenza vaccine 46845130 Z23 Screening for malignant neoplasm of prostate 213470910 Z12.5 Carotid bruit 397542640 R09.89 Candidiasis of skin 4988 3006 B37.2 [id number] Juan Gore MD [facility] [address] [place] [address] 04/10/2024 15:08:10 04/10/2024 16:42:22 Essential hypertension 16144226 I10 under control Chronic ob structive pulmonary disease 80632240 J44.9 better with inhalers Cerebrovas cular accident 077223046 I63.9 on meds, no recurrence Low back pain 320326779 M54.50 meds help Arthritis 9032841 M19.90 meds help prn Smoker 90339204 F17.200 advised to quit , has cut down Multiple n odules of lung 834629828 R91.8 needs LDCT every year, Chronic depression 000 F34.1 no meds needed Adult heal th examination 121509462 Z00.00 Colonoscop y 2015 nl, 10yrsPSA, 07/11Pneum ovax 04/2015Pre vnar 12/2016, 07/2019FLU - 06/24/2023 COVID- 12/18/20, 01/08/21 Screening for disorder 710171500 Z13.9 Coronary arteriosclerosis 91854284 I25.10 on meds Peripheral vascular disease 864064656 I73.9 symptoms are better Carotid ar austen stenosis 64062576 I65.29 on plavix [id number] Tenzin Horton MD [facility] [place] [address] [place] [address], [facility] [address] [place] [address] 2024 14:55:06 06/14/2024 14:58:32 Chronic obstructive pulmonary disease 11092530 J44.9 Multiple n odules of lung 761819971 R91.8 Smoker 82357399 F17.218 F17.219 Z87.846 [id number] Juan Gore MD [facility] Internal Med [place] [address] [facility] [address] 08/08/2024 14:51:39 08/08/2024 15:39:00 Essential hypertension 20752318 I10 under control Chronic ob structive pulmonary disease 82096176 J44.9 under control Cerebrovas cular accident 167466370 I63.9 on meds, no recurrence Low back pain 584226881 M54.50 meds help Arthritis 2537630 M19.90 meds help prn Smoker 48999727 F17.200 advised to quit , has cut down Multiple n odules of lung 209143146 R91.8 needs LDCT every year, Chronic depression 73513 0009 F34.1 no meds needed Adult heal th examination 867215607 Z00.00 Colonoscop y 2016 nl, 10yrsPSA, 07/11Pneum ovax 04/2015Pre vnar 12/2016, 07/2019FLU - 08/06/2024 (sc;april )COVID- 12/18/20, 01/08/21 Coronary arteriosclerosis 51489537 I25.10 on meds Peripheral vascular disease 809806866 I73.9 symptoms are better Carotid ar austen stenosis 67601656 I65.29 on plavix Screening for malignant neoplasm of prostate 703949023 Z12.5 [id number] Juan Gore MD [facility] Internal Med [facility] [address] [facility] [address] 12/06/2024 14:21:26 12/06/2024 15:13:07 Essential hypertension 36055677 I10 under control Chronic ob structive pulmonary disease 67276698 J44.9 under control Cerebrovas cular accident 356257632 I63.9 on meds, no recurrence Low back pain 101060845 M54.50 tylenol Arthritis 4269237 M19.90 tylenol Smoker 63570361 F17.200 advised to quit , has cut down Multiple n odules of lung 647015812 R91.8 needs LDCT every year, Chronic depression 52413 0009 F34.1 no meds needed Adult heal th examination 446368123 Z00.00 Colonoscop y 2016 nl, 10yrsPSA, 08/14/24Pn eumovax 04/2015Pre vnar 12/2016, 07/2019FLU - 08/06/2024 (juan carlos )COVID- 12/18/20, 01/08/21 Coronary arteriosclerosis 35763917 I25.10 on meds Peripheral vascular disease 119280600 I73.9 symptoms are better Carotid ar austen stenosis 63484368 I65.29 on plavix Kidney disease 72360583 N08 Anemia 203307903 D64.9 Health Concerns Section Related Observation LastModified by Organization Detai ls LastModified Time None Recorded Concern Status LastModified by Organization Details LastModified Time None Recorded Advance Directives Directive Y: Payers Encounter Date Sequence Insurance Name Policy Number Policy Guajardo Covered Member ID Guajardo Member ID Guarantor Name 06/24/2023 1 [facility] - MEDICARE COMPLETE - POS (MEDICARE REPLACEMENT HMO) [id number] Greg Srivastava [id number] Greg Srivastava 04/10/2024 1 [facility] - MEDICARE COMPLETE - POS (MEDICARE REPLACEMENT HMO) [id number] Greg Srivastava [id number] Greg Srivastava 2024 1 [facility] - MEDICARE COMPLETE - POS (MEDICARE REPLACEMENT HMO) [id number] Greg Srivastava [id number] Greg Srivastava 08/08/2024 1 [facility] - [facility]IC[facility] COMPLETE - POS (MEDICARE REPLACEMENT HMO) [id number] Greg Srivastava [id number] Greg Srivastava 12/06/2024 1 [facility] - MEDICARE COMPLETE - POS (MEDICARE REPLACEMENT HMO) [id number] [facility] Carola [id number] Greg Srivastava Notes Date Note Type Note Provider Name and Address Organization Details Recorded Time 06/24/2023 text/html Doing fine, comp liant to medications, no side affects, here for follow up.C/O SORES ON THE BUTTOCKS, SITS A LOTCOPD-under control, o2 sat 97%Meds- alb inhaler 1 puff QID prn, stiolto qdHTN- bp is under control with medsMeds- Lisinopril 20 mg dailyHe had CVA in the past, no deficit, no recurrenceMeds- Aspirin 81 mg daily and Plavix 75 mg dailyDepression- under control without medsSmoker- has been advised to quit, LDCT- 03/2021, suspicious lesion, PET scan done in 07/09 showed benign old granulomatous disease, CT chest 04/09, benign, seen pulm dr Horton, last CT was 05/19, no increase in the sizevit d def- on otcOsteoarthritis-med s it helps, mostly hands, no pain in other jointsMeds- Diclofenac 75 mg BID prn, usually takes 4x a weekh/o Anemia- improved has taken iron in the past Juan Gore MD [address] [facility], [facility] [address], [place], [address], [place] [facility] [employer] 06/24/2023 13:23:42 04/10/2024 text/html Doing fine, comp liant to medications, no side affects, here for follow up. CAD- s/p card cath, Dr Ledesma, PVD- s/o stentsCOPD-under control, o2 sat 98%, no cough or wheezing, seen Dr Horton, PFT 09/10Meds- alb inhaler 1 puff QID prn, stiolto qdHTN- bp is under control with medsMeds- Lisinopril 20 mg daily, He had CVA in the past, no deficit, no recurrenceMeds- Aspirin 81 mg daily and Plavix 75 mg dailyDepression- under control without medsSmoker- he has cut down to 1/ 2 ppd, has been advised to quit, LDCT- 03/2021, suspicious lesion, PET scan done in 07/09 showed benign old granulomatous disease, last LDCT 05/12vit d def- on otcOsteoarthritis-med s it helps, mostly hands, no pain in other jointsMeds- Diclofenac 75 mg BID prn, usually takes 4x a weekh/o Anemia- improved has taken iron in the past Carotid artery stenosis- 70%, seen cardiology, Dopplers 07/11 Juan Gore MD [address] [facility], [facility] [address], [place], [address], [facility] [employer] 04/11/2024 08:35:35 2024 text/html Primary care/Referring provider: Juan Gore MD Patient is here to go over his PFT and chest CT as part of his COPD and pulm nodules management.Initial development of shortness of breath: 2014Duration of shortness of breath: 10 yearsCondition of shortness of breath: stableTiming of shortness of breath: noneFrequency: up to 2 times a dayLimits activities: yesAggravating factors: walking one mileAlleviating factors: restModified Medical [employer] [place] (mMRC) Dyspnea Scale - Grade 1Grade 0 I only get breathless with strenuous exercise .Grade 1 I get short of breath when hurrying on the level or walking up a slight hill .Grade 2 I walk slower than people of the same age on the level because of breathlessness or have to stop for breath when walking at my own pace on the level .Grade 3 I stop for breath after walking about 100 yards or after a few minutes on the level .Grade 4 I am too breathless to leave the house or I am breathless when dressing .Treatment history:Combivent Respimat 1 puff 4 times a day as needed. He uses this twice a day, usually.Other symptoms:Productive cough: noWheezing: noChest tightness: yesOrthopnea: noFrequent throat clearing or swallowing: noPalpitations: noHeartburn: noDysphagia: noEdema: noEnvironmental exposures:Nicotine smoke: 2 ppd 1980-present = 86 pack yearsPaint: yesDye: noDust mites: yesMold: noDamp basement: noWood burning stove: noAnimal dander: noCockroaches: noPollen: yesArsenic: noAsbestos: noBeryllium: noCadmium: noChromium: noCoal smoke: noDiesel fumes: noNickel: noSilica: noSoot: noEPWORTH SLEEPINESS SCALE (ESS)CHANCE OF DOZING SCORE0 = would never doze1 = slight chance of dozing2 = moderate chance of dozing3 = high chance of dozingSITUATION AND CHANCE OF DOZINGSitting and reading - 0Watching television - 0Sitting inactive in a public place (e.g. a theater or meeting) - 0As a passenger in a car for an hour without a break - 0Lying down to rest in the afternoon when circumstances permit - 0Sitting and talking to someone - 0Sitting quietly after lunch without alcohol - 0In a car, while stopped for a few minutes in the traffic - 0TOTAL SCORE 0Subjectively, patient has no chance of dozing. Tenzin Horton MD [address] [place] [address], [facility] [address], [place], [address], [place] - [facility] [email or web address] 2024 15:56:06 08/08/2024 text/html Doing fine, comp liant to medications, no side affects, here for follow up.PT IS NOT FASTING ( [facility] ) CAD- s/p card cath, Dr Ledesma, PVD- s/o stents, no pain in the legs but easily gets tiredCOPD-under control, o2 sat 94%, no cough or wheezing, seen Dr Horton, PFT 09/10Meds- alb inhaler 1 puff QID prn, stiolto qdHTN- bp is under control with medsMeds- Lisinopril 20 mg daily, He had CVA in the past, no deficit, no recurrenceMeds- Aspirin 81 mg daily and Plavix 75 mg dailyDepression- under control without medsSmoker- he has cut down to 1/ 2 ppd, has been advised to quit, LDCT- 03/2021, suspicious lesion, PET scan done in 07/09 showed benign old granulomatous disease, last LDCT 05/12seen pulm Dr Jennifer burgess def- on otcOsteoarthritis-med s it helps, mostly hands, no pain in other jointsMeds- Diclofenac 75 mg BID prn, usually takes 4x a weekh/o Anemia- improved has taken iron in the past Carotid artery stenosis- 70%, seen cardiology, Dopplers 07/11 Juan Gore MD [address] [facility] [address], [address], [place], [address], [employer] 08/08/2024 15:37:17 12/06/2024 text/html Doing fine, comp liant to medications, no side affects, here for follow up.PT IS FASTING ( [facility] ) CAD- s/p card cath, Dr Ledesma, NO CP OR SOB PVD- s/o stents, no pain in the legs but easily gets tiredCOPD-under control, seen Dr Horton, PFT 09/10Meds- alb inhaler 1 puff QID prn, stiolto qd Kidney disease- rec to see nephrologyHTN- bp is under control with medsMeds- Lisinopril 20 mg daily He had CVA in the past, no deficit, no recurrenceMeds- Aspirin 81 mg daily and Plavix 75 mg dailyDepression- under control without medsSmoker- he has cut down to 1/ 2 ppd, has been advised to quit, LDCT- 03/2021, suspicious lesion, PET scan done in 07/09 showed benign old granulomatous disease, last LDCT 05/12se puljustino burgess def- on otcOsteoarthritis-med s helps, mostly hands, no pain in other jointsMeds- NOT on Diclofenac due to kidney diseaseh/o Anemia- improved has taken iron in the past Carotid artery stenosis- 70%, seen cardiology, Dopplers 07/11 Juan Gore MD [address], [address], [place], [address], [employer] 12/06/2024 14:58:37
== END 2024-12-25 13:03 | disposition home or self-care (01) ==
PROVIDERS: PCP Internal Medicine; Visit Provider Internal Medicine
DX: D64.9 Anemia, unspecified (principal)
CPT/HCPCS: 36415; 85025

== ENCOUNTER 2025-01-09 13:43 | Outpatient (CLI) | payer MEDICARE, SELFPAY ==
--- NOTE | ~2025-01-09 | US_ITS ---
EXAMINATION: US retroperitoneal comp DATE: 01/09/2025 14:41 INDICATION: Chronic kidney disease TECHNIQUE: Multiple ultrasound grayscale images of the kidneys were obtained. COMPARISON: None. FINDINGS: The right kidney measures 9.9 x 3.8 x 4.1 cm. The left kidney measures 7.9 x 3.3 x 3.6 cm. 2.5 simila r anechoic cyst at the right kidney. There is bilateral diffuse increased renal cortical echogenicity consistent with medical renal disease. There is no hydronephrosis in either kidney. No stones ident ified. The bladder is normal. Central prostatic calcifications. IMPRESSION: 1. Diffuse bilateral increased renal cortical echogenicity consistent with medical renal disease. No hydronephrosis. Reviewed, dictated and finalized at location A. IMPRESSION: 1. Diffuse bilateral increased renal cortical echogenicity consistent with med ical renal disease. No hydronephrosis.
--- OUTSIDE RECORDS SUMMARY | 2025-01-09 15:29 | XMS_ITS | Data Portability ---
Author Organization [place] - [employer], Main Office Address [address] [place] [address] Care Team Providers Care [employer] Crewmember Name Role Phone JUAN GORE Primary Care Provider [phone] Assessment Encounter Date Assessment Date Assessment LastModified [...] week before return. Nicotine cessation counseling provided. [place] for quitting nicotine include getting ready, getting [...] in Quit For Life program Registering at [email or web address] Making a call to 8-259-BSYC-NOW ( ). A strong, clear, personalized message [...] failure or relapse. Patient can enroll in [facility]'s smoking cessation class through Doretha Funez [...] further management. Follow-up: 1 year, May 2025 Not available 2024 15:44:55 Plan of Treatment Reminders Order Date Submit Date Provider Last Modified By Organization Details Last Modified Time Details Appointments Establish ed Patient 15 2024 11:00A Justino Gore MD Not available Not available Not available Any 30 2024 11:00A Justino Horton MD Not available Not available Not available Lab CBC w/ auto diff 2024 025 [facility] Outpatient Registration Lab/Ekg, [address], [place], [address], 12/25/2024 21:07:24 PSA, serum or plasma [address] Lab, [address] [facility] [address] [place] [address], [id number], 11/28/2024 10:52:46 CMP, serum or plasma [address] Lab, [address] [facility] [address] [place] [address], [id number], 11/28/2024 10:52:46 lipid panel, serum 2023 024 [facility] Lab, [address] [facility] [address] [place] [address], [address], 11/28/2024 13:52:31 CBC w/ auto diff [address] Lab, [address] [facility] [address] [place] [address], [id number], 11/28/2024 10:52:46 PSA, serum or plasma [address] (Lab), [address] [place], [address], 07/04/2023 09:20:49 CMP, serum or plasma 2022 023 [facility] (Lab), [address] [place], [address], 06/28/2023 15:11:24 lipid panel, serum 2022 023 [facility] (Lab), [address] [place], [address], 06/28/2023 15:11:27 CBC w/ auto diff 2022 023 [facility] (Lab), [address] [place], [address], 06/28/2023 14:44:22 Referral nephrolog ist referral - Please call patient to schedule an appointme nt. Thank you. 2024 025 CHARLA Collier MD (Nephrology, [address], [address], [place], [address], 12/11/2024 18:04:41 Procedures None recorded. Surgeries None recorded. Imaging CT, chest, w/o contrast 2023 025 [facility] Not available 2024 15:52:42 US, duplex, carotid artery 2022 023 [facility] (One Call Scheduling), [address] [facility], [place], [address], 07/06/2023 11:49:45 Medication Orders albuterol sulfate HFA 90 mcg/actua tion aerosol inhaler 2023 024 [facility]/Pharmacy #[id number], [address], [place], [address], 2024 15:45:05 Stiolto Respimat 2.5 mcg-2.5 mcg/actua tion solution for inhalatio n 2023 024 [facility]/Pharmacy #[id number], [address], [place], [address], 2024 15:45:00 clotrimaz ole-betam ethasone 1 %-0.05 % topical cream [address]/Pharmacy #[id number], [address], [place], [address], 06/12/2024 13:55:25 Patient TargetsNo targets recorded. Patient Instructions Encounter Date Encounter Id Patient Instructions Last Modified By Organization Details Last Modified Time 06/24/2023 [id number] [email or web address] Not available 06/24/2023 11:11:12 04/10/2024 [id number] dementia rating scale-2* Not available 04/10/2024 16:35:23 depression screening* Not available 04/10/2024 16:35:22 alcohol misuse* Not available 04/10/2024 16:35:23 multi-dimensiona l health assessment questionnaire* Not available 04/10/2024 16:35:23 advance directiv es: care instructions Not available 04/10/2024 16:35:22 [place] Advance Directives Not available 04/10/2024 16:35:23 advance [...] Negative Active diagnosis, Continue current treatment plan [email or web address] Not available 04/10/2024 16:11:35 2024 [id number] complete PFT w/ post bronchodilator spirometry* Not available 2024 15:52:12 Reason for Referral Benefits Administrator Referral for Ki dney disease Please call patient to schedule an appointment. Thank you. Referring Physician: Juan Gore, Internal Medicine, Encounter Date: 12/06/2024 Results Created Date Observation Date Name Description Value Unit Range Abnormal Flag Note LastModifiedBy Organization Detail LastModifiedTime 06/28/2006/28/2023 CBC/C OMPLE TE BLD COUNT W/DIF F white blood cells 7.2 x10'3 /uL 4.2-10 .8 Not Available [facility] (Lab) [address] [place], [address], 06/28/2023 14:44:22 06/28/2006/28/2023 CBC/C OMPLE TE BLD COUNT W/DIF F red blood cells 4.31 x10'6 /uL 4.10-5 .80 Not Available [facility] (Lab) [address] [place], [address], 06/28/2023 14:44:22 06/28/2006/28/2023 CBC/C OMPLE TE BLD COUNT W/DIF F hemoglobin 13.6 g/dL 13.2-1 7.0 Not Available [facility] (Lab) [address] [place], [address], 06/28/2023 14:44:22 06/28/2006/28/2023 CBC/C OMPLE TE BLD COUNT W/DIF F hematocrit 42.2 % 39.3-5 0.0 Not Available [facility] (Lab) [address] [place], [address], 06/28/2023 14:44:22 06/28/2006/28/2023 CBC/C OMPLE TE BLD COUNT W/DIF F mean red cell volume 97.9 fL 80.0-9 7.0 high Not Available [facility] (Lab) [address] [place], [address], 06/28/2023 14:44:22 06/28/20 23 06/28/2023 CBC/C OMPLE TE BLD COUNT W/DIF F mean red cell hemoglobin 31.6 pg 27.0-3 3.0 Not Available [facility] (Lab) [address] [place], [address], 06/28/2023 14:44:22 06/28/20 23 06/28/2023 CBC/C OMPLE TE BLD COUNT W/DIF F mean RBC HGB concentratio n 32.2 g/dL 31.0-3 6.0 Not Available [facility] (Lab) [address] [place], [address], 06/28/2023 14:44:22 06/28/20 23 06/28/2023 CBC/C OMPLE TE BLD COUNT W/DIF F red cell distribution width 14.2 % 11.8-1 5.5 Not Available [facility] (Lab) [address] [place], [address], 06/28/2023 14:44:22 06/28/20 23 06/28/2023 CBC/C OMPLE TE BLD COUNT W/DIF F platelets 258 x10'3 /uL 150-40 0 Not Available [facility] (Lab) [address] [place], [address], 06/28/2023 14:44:22 06/28/20 23 06/28/2023 CBC/C OMPLE TE BLD COUNT W/DIF F mean platelet volume 9.8 fL 9.0-12 .4 Not Available [facility] (Lab) [address] [place], [address], 06/28/2023 14:44:22 06/28/20 23 06/28/2023 CBC/C OMPLE TE BLD COUNT W/DIF F neutrophils 71.3 % 39.0-7 2.0 Not Available [facility] (Lab) [address] [place], [address], 06/28/2023 14:44:22 06/28/2006/28/2023 CBC/C OMPLE TE BLD COUNT W/DIF F lymphocytes 20.5 % 16.0-4 7.0 Not Available [facility] (Lab) [address] [place], [address], 06/28/2023 14:44:22 06/28/20 23 06/28/2023 CBC/C OMPLE TE BLD COUNT W/DIF F monocytes 5.4 % 5.0-12 .0 Not Available [facility] (Lab) [address] [place], [address], 06/28/2023 14:44:22 06/28/20 23 06/28/2023 CBC/C OMPLE TE BLD COUNT W/DIF F eosinophils 1.4 % 1.0-7. 0 Not Available [facility] (Lab) [address] [place], [address], 06/28/2023 14:44:22 06/28/20 23 06/28/2023 CBC/C OMPLE TE BLD COUNT W/DIF F basophils 1.1 % 0.0-2. 0 Not Available [facility] (Lab) [address] [place], [address], 06/28/2023 14:44:22 06/28/20 23 06/28/2023 CBC/C OMPLE TE BLD COUNT W/DIF F immature granulocytes 0.3 % 0.00-0 .50 Not Available [facility] (Lab) [address] [place], [address], 06/28/2023 14:44:22 06/28/20 23 06/28/2023 CBC/C OMPLE TE BLD COUNT W/DIF F neutrophils, absolute count 5.12 x10'3 /uL 1.5-8. 0 Not Available [facility] (Lab) [address] [place], [address], 06/28/2023 14:44:22 06/28/2006/28/2023 CBC/C OMPLE TE BLD COUNT W/DIF F lymphocytes, absolute count 1.47 x10'3 /uL 1.07-3 .43 Not Available [facility] (Lab) [address] [place], [address], 06/28/2023 14:44:22 06/28/20 23 06/28/2023 CBC/C OMPLE TE BLD COUNT W/DIF F monocytes, absolute count 0.39 x10'3 /uL 0.29-0 .99 Not Available [facility] (Lab) [address] [place], [address], 06/28/2023 14:44:22 06/28/2006/28/2023 CBC/C OMPLE TE BLD COUNT W/DIF F eosinophils, absolute count 0.10 x10'3 /uL 0.02-0 .53 Not Available [facility] (Lab) [address] [place], [address], 06/28/2023 14:44:22 06/28/20 23 06/28/2023 CBC/C OMPLE TE BLD COUNT W/DIF F basophils, absolute count 0.08 x10'3 /uL 0.01-0 .08 Not Available [facility] (Lab) [address] [place], [address], 06/28/2023 14:44:22 06/28/20 23 06/28/2023 CBC/C OMPLE TE BLD COUNT W/DIF F immature granulocytes ,absolute 0.02 x10'3 /uL 0.00-0 .05 Not Available [facility] (Lab) [address] [place], [address], 06/28/2023 14:44:22 06/28/20 23 06/28/2023 CBC/C OMPLE TE BLD COUNT W/DIF F nucleated red blood cells 0.0 % -0 Not Available [facility] (Lab) [address] [place], [address], 06/28/2023 14:44:22 06/28/20 23 06/28/2023 CBC/C OMPLE TE BLD COUNT W/DIF F NRBC# 0.00 x10'3 /uL Not Available [facility] (Lab) [address] [place], [address], 06/28/2023 14:44:22 06/28/20 23 06/28/2023 COMPR EHENS LEIGH METAB OLIC PANEL sodium 143 mmol/ L 137-14 5 Not Available [facility] (Lab) [address] [place], [address], 06/28/2023 15:11:24 06/28/20 23 06/28/2023 COMPR EHENS LEIGH METAB OLIC PANEL potassium 4.3 mmol/ L 3.5-5. 1 Not Available [facility] (Lab) [address] [place], [address], 06/28/2023 15:11:24 06/28/20 23 06/28/2023 COMPR EHENS LEIGH METAB OLIC PANEL chloride 107 mmol/ L 98-107 Not Available [facility] (Lab) [address] [place], [address], 06/28/2023 15:11:24 06/28/20 23 06/28/2023 COMPR EHENS LEIGH METAB OLIC PANEL carbon dioxide 28 mmol/ L 22-30 Not Available [facility] (Lab) [address] [place], [address], 06/28/2023 15:11:24 06/28/20 23 06/28/2023 COMPR EHENS LEIGH METAB OLIC PANEL anion gap 12.3 mmol/ L 14-22 low Not Available [facility] (Lab) [address] [place], [address], 06/28/2023 15:11:24 06/28/2006/28/2023 COMPR EHENS LEIGH METAB OLIC PANEL glucose 130 mg/dL 70-99 high Not Available [facility] (Lab) [address] [place], [address], 06/28/2023 15:11:24 06/28/20 23 06/28/2023 COMPR EHENS LEIGH METAB OLIC PANEL BUN 21 mg/dL 8-19 high Not Available [facility] (Lab) [address] [place], [address], 06/28/2023 15:11:24 06/28/20 23 06/28/2023 COMPR EHENS LEIGH METAB OLIC PANEL creatinine 1.09 mg/dL 0.66-1 .25 Not Available [facility] (Lab) [address] [place], [address], 06/28/2023 15:11:24 06/28/2006/28/2023 COMPR EHENS LEIGH METAB OLIC PANEL GFR >60 Refer ence Range : [place] ge GFR Healt hy Adult : >60 [...] calcu lator is avail able on the [facility] websi te: [email or web address] [email or web address] culat or Not Available [facility] (Lab) [address] [place], [address], 06/28/2023 15:11:24 06/28/2006/28/2023 COMPR EHENS LEIGH METAB OLIC PANEL alkaline phosphatase 111 U/L 38-126 Not Available [facility] (Lab) [address] [place], [address], 06/28/2023 15:11:24 06/28/2006/28/2023 COMPR EHENS LEIGH METAB OLIC PANEL alanine aminotransfe rase 24 U/L 0-50 Not Available [facility] (Lab) [address] [place], [address], 06/28/2023 15:11:24 06/28/20 23 06/28/2023 COMPR EHENS LEIGH METAB OLIC PANEL aspartate aminotransfe rase 26 U/L 15-46 Not Available [facility] (Lab) [address] [place], [address], 06/28/2023 15:11:24 06/28/20 23 06/28/2023 COMPR EHENS LEIGH METAB OLIC PANEL bilirubin, total 0.30 mg/dL 0.20-1 .30 Not Available [facility] (Lab) [address] [place], [address], 06/28/2023 15:11:24 06/28/20 23 06/28/2023 COMPR EHENS LEIGH METAB OLIC PANEL calcium 10.2 mg/dL 8.4-10 .2 Not Available [facility] (Lab) [address] [place], [address], 06/28/2023 15:11:24 06/28/2006/28/2023 COMPR EHENS LEIGH METAB OLIC PANEL total protein 7.2 g/dL 6.3-8. 2 Not Available [facility] (Lab) [address] [place], [address], 06/28/2023 15:11:24 06/28/20 23 06/28/2023 COMPR EHENS LEIGH METAB OLIC PANEL albumin 4.2 g/dL 3.0-4. 4 Not Available [facility] (Lab) [address] [place], [address], 06/28/2023 15:11:24 06/28/20 23 06/28/2023 COMPR EHENS LEIGH METAB OLIC PANEL globulin 3.0 g/dL 2.6-4. 2 Not Available [facility] (Lab) [address] [place], [address], 06/28/2023 15:11:24 06/28/2006/28/2023 COMPR EHENS LEIGH METAB OLIC PANEL A/G ratio 1.4 ratio 1.0-2. 0 Not Available [facility] (Lab) [address] [place], [address], 06/28/2023 15:11:24 06/28/2006/28/2023 LIPID PANEL cholesterol 172 mg/dL 140-19 9 NIH TOBIN NSUS RECOM MENDA TION FOR CONNOR STERO L: ADULT CHILD LOW RISK: <200 <170 BORDE RLINE : <200- 239 ----- HIGH RISK: >240 >200 Not Available [facility] (Lab) [address] [place], [address], 06/28/2023 15:11:27 06/28/20 23 06/28/2023 LIPID PANEL triglyceride s 96 mg/dL 0-150 NIH TOBIN NSUS REPOR T RECOM MENDA TION FOR TRIGL YCERI GRACIE: ADULT CHILD LOW RISK: <150 ----- BODER LINE: 150-1 99 ----- HIGH RISK: >200 ----- Not Available [facility] (Lab) [address] [place], [address], 06/28/2023 15:11:27 06/28/20 23 06/28/2023 LIPID PANEL HDL cholesterol 32 mg/dL 40- low Not Available [facility] (Lab) [address] [place], [address], 06/28/2023 15:11:27 06/28/2006/28/2023 LIPID PANEL LDL cholesterol, [...] WILL NOT BE REPOR JD. Not Available [facility] (Lab) [address] [place], [address], 06/28/2023 15:11:27 06/28/20 23 06/28/2023 PSA SCREE N PSA medicare screen 0.20 NG/mL 0.00-4 .00 Not Available [facility] (Lab) [address] [place], [address], 06/28/2023 15:58:08 07/12/2007/12/2023 HEMOG LOBIN A1C HA1C 5.5 % 4.0-6. 0 Diabe marcela Scree jimena Crite roldan: <5.7% Consi stent with absen ce of diabe marcela 5.7-6 .4% Consi stent with incre ased risk for diabe marcela (pred iabet es) >OR=6 .5% Consi stent with diabe marcela REFER ENCE: Diabe marcela Care 2016, 39(Beatty ppl.1 ):s13 -s22 Not Available [facility] (Lab) [address] [place], [address], 07/12/2023 15:05:35 07/06/20 23 07/06/2023 US, duple x, carot id arter y No observ ation record ed. [email or web address] [facility] [address] [place], [address], 07/06/2023 16:41:50 07/31/20 23 07/12/2023 compl ete PFT w/ post [facility] hodil ator vale metry * No observ ation record ed. [facility] (One Call Scheduling) [address] [place], [address], 07/31/2023 14:11:50 08/31/20 23 08/30/2023 lower extre mity elect romyo gram (PROC ) No observ ation record ed. Not Available 2022 15:10:01 06/12/20 24 06/12/2024 CT, chest , w/o contr ast No observ ation record ed. [email or web address] [facility] [address] [place], [address], 06/12/2024 13:54:40 Result Notes None recorded. Problems Name Problem SNOMED Code Status Onset Date Resolution Date Notes Provider Name and Address Organization Details Recorded Time Candidiasi s of skin 91988984 Active 2022 Not Available [employer] 3 06:26:40 Hyperglyce tyson 01635395 Active 2022 Not Available [employer] 3 06:26:40 Carotid artery stenosis 72250288 Active 2022 Not Available [employer] 3 06:26:40 Peripheral vascular disease 302976984 Active 2022 legs Juan Gore MD [address] [facility], [facility] [address], [place], [address] , [facility] [employer] [facility] 3 15:09:58 Coronary arterioscl erosis 67473986 Active 2023 Juan Gore MD [address], [place], [address] , [facility] [employer] [facility] [employer] [facility] 4 16:34:30 Low back pain 702008613 Active 2023 Radha vance, RMA null, [employer] [facility] [employer] [facility] 4 15:01:41 Kidney disease 60103547 Active 2024 Juan Gore MD [address], [place], [address] , [employer] [facility] [employer] [facility] 5 14:52:49 Chronic obstructiv e pulmonary disease 48211931 Active Not Available [facility] 3 06:26:40 Chronic depression 577233452 Active Not Available [facility] 3 06:26:40 Cerebrovas cular accident 656337180 Active Not Available [facility] 3 06:26:40 Anemia 493571827 Active 2017 Not Available [facility] 3 06:26:40 Arthritis 3342363 Active Not Available [facility] 3 06:26:40 Multiple nodules of lung 960189184 Active 2021 Not Available [facility] 3 06:26:40 Multiple nodules of lung 346724860 Completed 202004/06/2021 Not Available [facility] 3 04:53:19 Essential hypertensi on 68731806 Active Not Available [facility] 3 06:26:40 Smoker 45827337 Active 2008 Not Available [facility] 3 06:26:40 Dental caries 43234931 Active Not Available [facility] 3 06:26:40 Notes:Medical History: TIA 1 990 [...] 2008, 2013, 2018 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 Procedures Surgical History Date Name Laterality Status Provider Name and Address Organization Details Recorded Time 4 Medicare Wellness CPT Code, subsequent completed Radha Butt [facility] 08/08/2024 15:01:32 4 Advanced Care Planning completed Radha Butt [facility] 08/08/2024 15:01:31 4 Medicare Wellness CPT Code, subsequent completed Liv Wilson [facility] 04/10/2024 15:22:48 4 Advanced Care Planning completed Roxana Gómez RN [facility] 04/10/2024 16:06:55 3 Medicare Wellness CPT Code, subsequent completed Cecy Batista RN [facility] 02/22/2023 11:23:36 Imaging Results Imaging Date Name Status LastModified by Organization Details LastModified Time 07/06/2023 US, duplex, carotid artery completed [email or web address] [facility] [address] [place], [address], 07/06/2023 16:41:50 07/12/2023 complete PFT w/ post bronchodilator spirometry* completed [facility] (One Call Scheduling) [address] [place], [address], 07/31/2023 14:11:50 08/30/2023 lower extremity electromyogram (PROC) [email or web address] Information not available 09/07/2023 15:10:01 06/12/2024 CT, chest, w/o contrast completed [email or web address] [place], [address], 06/12/2024 13:54:40 Procedure Notes None recorded. Medical [...] Updated DateTime 3 165.1 cm 20.5 kg/m2 08892.8 6 g 97.1 [degF] 68 /min 97 % 97 % 138 mm[Hg] 68 mm[Hg] MONO Brown [facility] [employer] 3 11:14:41 Date Recorded Body height Body mass index (BMI) Body weight Body temperature Heart rate Oxygen saturation Oxygen saturation in Arterial blood by Pulse oximetry Systolic blood pressure Diastolic blood pressure Provider Name and Address Organization Details Last Updated DateTime 4 165.1 cm 20 kg/m2 06558.0 8 g 98.7 [degF] 70 /min 98 % 98 % 140 mm[Hg] 70 mm[Hg] Liv Wilson [facility] [employer] 4 15:19:41 Date Recorded Pain severity - 0-10 verbal numeric rating [Score] - Reported Provider Name and Address Organization Details Last Updated DateTime 04/10/2024 0 Roxana Gómez RN [facility] [employer] [facility] 04/10/2024 15:47:01 Date Recorded Body height Body mass index (BMI) Body weight Body temperature Heart rate Heart rate Oxygen saturation Oxygen saturation in Arterial blood by Pulse oximetry Respiratory rate Systolic blood pressure Diastolic blood pressure Provider Name and Address Organization Details Last Updated DateTime 4 165.1 cm 20.5 kg/m2 43710.3 g 98.3 [degF] 85 /min 85 /min 98 % 98 % 16 /min 124 mm[Hg] 66 mm[Hg] Genevieve Carey MA [facility] [employer] [facility] 4 15:27:40 Date Recorded Body height Body mass index (BMI) Body weight Body temperature Heart rate Oxygen saturation Oxygen saturation in Arterial blood by Pulse oximetry Systolic blood pressure Diastolic blood pressure Provider Name and Address Organization Details Last Updated DateTime 4 165.1 cm 20.3 kg/m2 91035.2 7 g 97.7 [degF] 90 /min 94 % 94 % 128 mm[Hg] 64 mm[Hg] Radha alejandro Gerardo [facility] [employer] [facility] 4 15:03:13 Date Recorded Body height Body mass index (BMI) Body weight Body temperature Heart rate Oxygen saturation Oxygen saturation in Arterial blood by Pulse oximetry Systolic blood pressure Diastolic blood pressure Provider Name and Address Organization Details Last Updated DateTime 5 165.1 cm 19.6 kg/m2 13859.9 g 97.5 [degF] 97 /min 95 % 95 % 136 mm[Hg] 70 mm[Hg] Radha alejandro Gerardo [place] [employer] [facility] [employer] [facility] 5 14:30:09 Social History Question Answer Notes LastModified by Organization Details LastModified Time Tobacco Smoking Status Current Every Day Smoker Not Available [facility] 11/17/2022 04:13:57 Do You Have An Advance Directive? Yes [id number] Information not available 11/17/2022 What Is Your Level Of Alcohol Consumption? None [email or web address] [id number] Information not available 11/17/2022 Are You Blind Or Do You Have Difficulty Seeing? No [email or web address].030 [id number] Information not available 11/17/2022 Is Blood Transfusion Acceptable In An Emergency? Yes [email or web address] Information not available 04/10/2024 What Is Your Level Of Caffeine Consumption? Moderate [id number] Information not available 11/17/2022 How Much Tobacco Do You Chew? None [email or web address] [id number] Information not available 11/17/2022 What Is Your Code Status? Other [email or web address] Information not available 04/10/2024 In The 14 Days Before Symptom Onset, Have You Had Close Contact With A Laboratory-conf irmed COVID-19 While That Case Was Ill? No [email or web address].030 [id number] Information not available 11/17/2022 In The 14 Days Before Symptom Onset, Have You Had Close Contact With A Person Who Is Under Investigation For COVID-19 While That Person Was Ill? No [email or web address].[id number] [id number] Information not available 11/17/2022 Are You Currently Employed? No [email or web address] Information not available 04/10/2024 Are You Deaf Or Do You Have Serious Difficulty Hearing? No [email or web address].[id number] [id number] Information not available 11/17/2022 What Type Of Diet Are You Following? REGULAR MIGRATION.030 [id number] Information not available 11/17/2022 Which Illicit Or Recreational Drugs Have You Used? None [email or web address].030 [id number] Information not available 11/17/2022 What Is The Highest Grade Or Level Of School You Have Completed Or The Highest Degree You Have Received? [id number] [email or web address] Information not available 04/10/2024 Do You Have An Electrostatic Air Filter? No MIGRATION.0301 [id number] Information not available 11/17/2022 What Is Your Occupation? DISABILITY MIGRATION.030 [id number] Information not available 11/17/2022 How Many Days Of Moderate To Strenuous Exercise, Like A Brisk Walk, Did You Do In The Last 7 Days? 0 [email or web address] Information not available 04/10/2024 Have There Been Any Changes To Your Family Or Social Situation? No MIGRATION.0301 [id number] Information not available 11/17/2022 What Is The Fluoride Status Of Your Home? Fluoridated [email or web address] Information not available 02/22/2023 Are There Any Guns Present In Your Home? Yes MIGRATION.0301 [id number] Information not available 11/17/2022 Do You Have A Humidifier? Yes MIGRATION.0301 [id number] Information not available 11/17/2022 Do You Use Insect Repellent Routinely? No MIGRATION.0301 [id number] Information not available 11/17/2022 Where Do You Live? SingleLevelHouse MIGRATION.030 [id number] Information not available 11/17/2022 Presence Of Domestic Violence No [email or web address] Information not available 02/22/2023 Guns Present In The Home? Yes [email or web address] Information not available 02/22/2023 Are You Able To Care For Yourself? Yes Information not available 02/22/2023 Are You Blind Or Do Yo Have Difficulty Seeing? No Cataracts [email or web address] Information not available 02/22/2023 Are You Deaf Or Do You Have Serious Difficulty Hearing? No [email or web address] Information not available 02/22/2023 General Stress Level? Moderate Information not available 02/22/2023 Live Alone Of With Others? Alone [email or web address] Information not available 04/10/2024 Do You Have A Medical Power Of Medical Lead? Yes [email or web address] Information not available 04/10/2024 Do You Have Moisture Problems In Your Home? No MIGRATION.[id number] [id number] Information not available 11/17/2022 What Was The Date Of Your Most Recent Tobacco Screening? 04/10/2024 [email or web address] Information not available 04/10/2024 How Many Children Do You Have? 0 [email or web address] Information not available 04/10/2024 What Is Your Current Pack Years? 30ormorepackyears [email or web address] Information not available 02/22/2023 Do You Have Any Pets? Yes [email or web address] Information not available 04/10/2024 What Is Your Relationship Status? [email or web address] Information not available 04/10/2024 Do You Use Your Seat Belt Or Car Seat Routinely? Yes [email or web address] Information not available 04/10/2024 Are You Sexually Active? No [email or web address] Information not available 04/10/2024 Do You Have Smoke And Carbon Monoxide Detectors In Your Home? Yes States Does Have Thiem [email or web address] Information not available 04/10/2024 At What Age Did You Start Smoking Tobacco? 16 MIGRATION.0301 [id number] Information not available 11/17/2022 Are You Passively Exposed To Smoke? No MIGRATION.0301 [id number] Information not available 11/17/2022 Are There Any Smokers In Your House? No [email or web address] Information not available 04/10/2024 How Much Tobacco Do You Smoke? 1 PPD As Of 04/10/2024 States Down To A Pack A Week. [email or web address] Information not available 04/10/2024 What Types Of Sporting Activities Do You Participate In? None [email or web address] Information not available 04/10/2024 Do You Feel Stressed (tense, Restless, Nervous, Or Anxious, Or Unable To Sleep At Night)? [id number] [email or web address] Information not available 04/10/2024 Do You Use Any Illicit Or Recreational Drugs? No [email or web address] Information not available 04/10/2024 Do You Use Sunscreen Routinely? No MIGRATION.0301 [id number] Information not available 11/17/2022 Has Tobacco Cessation Counseling Been Provided? Yes Offered And Refused [email or web address] Information not available 04/10/2024 How Many Years Have You Smoked Tobacco? 51 [email or web address] Information not available 02/22/2023 Have You Recently Traveled Abroad? No MIGRATION.0301 [id number] Information not available 11/17/2022 Do You Have Any Dietary Restrictions? No [email or web address] Information not available 04/10/2024 Do You Or Have You Ever Used Any Other Forms Of Tobacco Or Nicotine? No [email or web address] Information not available 04/10/2024 Sex: Male Functional Status Question Answer Note LastModified by Organizat [employer] Details LastModified Time Do you have difficulty walking or climbing stairs? No MIGRATION.[id number] 026 Information not available 11/17/2022 Do you have transportation difficulties? No MIGRATION.[id number] 026 Information not available 11/17/2022 Are you able to walk? YESWOREST MIGRATION.[id number] 026 Information not available 11/17/2022 Do you have difficulty doing errands alone? No MIGRATION.8731971 026 Information not available 11/17/2022 Are you able to care for yourself? Yes MIGRATION.[id number] 026 Information not available 11/17/2022 Do you have difficulty dressing or bathing? No MIGRATION.1296294 026 Information not available 11/17/2022 What is your exercise level? None [email or web address] Information not available 04/10/2024 Mental Status Question Answer Note LastModified by [employer] ion Details LastModified Time Do you have difficulty concentrating, remembering or making decisions? No moments of forgetfulness [email or web address] Information not available 04/10/2024 Family History Relationship Description Onset Age of this Age Resolved Age Notes LastModified by Organization Details LastModified Time Mother Liver cell carcinoma [id number].[id number] Not available 11/17/2022 04:43:58 Medical History No medical history recorded. Immunizations Vaccine Type Date Status Note Provider Nam e and Address Organization Details Recorded Time COVID-19, mRNA, LNP-S, PF, mairsol-sucrose, 30 mcg/0.3 mL 4 completed SAUL Harp, [place] 08/07/2024 15:19:44 influenza, unspecified formulation 4 completed SAUL Harp, [place] 08/07/2024 15:20:57 Influenza, high-dose, quadrivalent, PF 3 completed Juan Gore MD [address], [address], [place] 06/24/2023 13:23:38 COVID-19, mRNA, LNP-S, PF, 30 mcg/0.3 mL dose 2 completed Not Available [facility] 08/09/2023 06:26:40 SARS-COV-2 (COVID-19) vaccine, UNSPECIFIED 1 completed Not Available [facility] 08/09/2023 06:26:40 SARS-COV-2 (COVID-19) vaccine, UNSPECIFIED 1 completed Not Available [facility] 08/09/2023 06:26:40 SARS-COV-2 (COVID-19) vaccine, UNSPECIFIED 1 completed Not Available [facility] 08/09/2023 06:26:40 Pneumococcal conjugate PCV 13 9 completed Not Available [facility] 08/09/2023 06:26:40 Influenza, high-dose, quadrivalent, PF 9 completed Not Available [facility] 08/09/2023 06:26:40 Influenza, high-dose, quadrivalent, PF 2 completed Not Available [facility] 08/09/2023 06:26:40 Influenza, high-dose, quadrivalent, PF 1 completed Not Available [facility] 08/09/2023 06:26:40 Influenza, high-dose, quadrivalent, PF 0 completed Not Available [facility] 08/09/2023 06:26:40 Pneumococcal conjugate PCV 13 7 completed Not Available [facility] 08/09/2023 06:26:40 Influenza, split virus, quadrivalent, preservative 6 completed Not Available [facility] 08/09/2023 06:26:40 pneumococcal polysaccharide PPV23 5 completed Not Available [facility] 08/09/2023 06:26:40 Influenza, split virus, quadrivalent, PF 9 completed Not Available [facility] 08/09/2023 06:26:40 Influenza, split virus, trivalent, preservative 4 completed Not Available [facility] 08/09/2023 06:26:40 Influenza, split virus, trivalent, preservative 3 completed Not Available [facility] 08/09/2023 06:26:40 Past Encounters Encounter ID Performer Location Encounter Start Date Encounter Closed Date Diagnosis/Indication Diagnosis SNOMED-CT Code Diagnosis ICD10 Code Diagnosis Note [id number] [facility] [address] [facility] [place] [address] 02/17/2021 00:00:00 02/17/2021 12:33:19 [id number] [facility] [address] [place] [address] 06/22/2021 00:00:00 06/22/2021 12:59:34 [id number] [facility] [address] [place] [address] 10/23/2021 00:00:00 10/23/2021 10:34:10 [id number] [facility] [address] [place] [address]. [place] [address] 02/24/2022 00:00:00 02/24/2022 13:29:20 [id number] [facility] [place] [address] [address] 05/05/2022 00:00:00 05/20/2022 15:17:52 [id number] [facility] [address] [address] 05/20/2022 00:00:00 05/20/2022 15:36:54 [id number] [facility] Internal Med [place] [id number] [facility] [place] [address] 06/29/2022 00:00:00 06/29/2022 12:42:06 [id number] [facility] [address] [place] [address] 08/19/2022 00:00:00 08/19/2022 12:24:58 [id number] Juan Gore MD [facility] Internal Med [facility] [address] [facility] [place] [address] 02/22/2023 11:06:30 02/22/2023 11:38:41 Cerebrovascular accident 436465653 I63.9 on meds, no recurrence Chronic ob structive pulmonary disease 30559601 J44.9 better with inhalers Low back pain 756427522 M54.50 meds help Essential hypertension 86856998 I10 under control Anemia 641051257 D64.9 improved, labs next time Arthritis 4096390 M19.90 meds help prn Smoker 52140563 F17.200 advised to quit Multiple n odules of lung 708153501 R91.8 needs LDCT every year, Chronic depression 34886 0009 F34.1 no meds needed Adult heal th examination 805639795 Z00.00 Screening for disorder 823603064 Z13.9 Screening for malignant neoplasm of colon 687427905 Z12.11 [id number] Tenzin Horton MD [facility] [address] [place] [address] 05/31/2023 11:46:55 06/01/2023 08:49:18 Chronic obstructive pulmonary disease 02609577 J44.9 Multiple n odules of lung 117124826 R91.8 Smoker 78615106 F17.218 F17.219 Z87.443 [id number] Juan Gore MD [facility] Internal Med [facility] [address] [facility] [place] [address] 06/24/2023 10:59:44 06/24/2023 11:49:26 Essential hypertension 87607680 I10 under control Chronic ob structive pulmonary disease 39924177 J44.9 inhalers HELP Cerebrovas cular accident 664336416 I63.9 on meds, no recurrence Low back pain 337184336 M54.50 meds help Anemia 127776302 D64.9 improved, Arthritis 7509311 M19.90 meds help prn Smoker 24774157 F17.200 advised to quit Multiple n odules of lung 799410836 R91.8 needs LDCT every year, Chronic depression 02873 000 F34.1 no meds needed Adult heal th examination 885550078 Z00.00 Colonoscop y 2015 nl, 10yrsP, 07/10Pneum ovax 04/2015Pre vnar 12/2016, 07/2019FLU - 06/24/2023 COVID- 12/18/20, 01/08/21 Administra tion of influenza vaccine 77604138 Z23 Screening for malignant neoplasm of prostate 963224958 Z12.5 Carotid bruit 778685979 R09.89 Candidiasis of skin 4988 3006 B37.2 [id number] Juan Gore MD [facility] [address] [place] [address] 04/10/2024 15:08:10 04/10/2024 16:42:22 Essential hypertension 13090811 I10 under control Chronic ob structive pulmonary disease 57343330 J44.9 better with inhalers Cerebrovas cular accident 130767641 I63.9 on meds, no recurrence Low back pain 468878347 M54.50 meds help Arthritis 3795880 M19.90 meds help prn Smoker 29701173 F17.200 advised to quit , has cut down Multiple n odules of lung 694373811 R91.8 needs LDCT every year, Chronic depression 8 F34.1 no meds needed Adult heal th examination 809842004 Z00.00 Colonoscop y 2015 nl, 10yrsPSA, 07/11Pneum ovax 04/2015Pre vnar 12/2016, 07/2019FLU - 06/24/2023 COVID- 12/18/20, 01/08/21 Screening for disorder 280787074 Z13.9 Coronary arteriosclerosis 06757433 I25.10 on meds Peripheral vascular disease 118111934 I73.9 symptoms are better Carotid ar austen stenosis 95244067 I65.29 on plavix [id number] Tenzin Horton MD [facility] [place] [address] [place] [address], [facility] [address] [place] [address] 2024 14:55:06 06/14/2024 14:58:32 Chronic obstructive pulmonary disease 50170014 J44.9 Multiple n odules of lung 246097457 R91.8 Smoker 11701804 F17.218 F17.219 Z87.999 [id number] Juan Gore MD [facility] Internal Med [facility] [address] [facility] [place] [address] 08/08/2024 14:51:39 08/08/2024 15:39:00 Essential hypertension 53831222 I10 under control Chronic ob structive pulmonary disease 31391517 J44.9 under control Cerebrovas cular accident 737686774 I63.9 on meds, no recurrence Low back pain 207738928 M54.50 meds help Arthritis 2114729 M19.90 meds help prn Smoker 84572531 F17.200 advised to quit , has cut down Multiple n odules of lung 093321668 R91.8 needs LDCT every year, Chronic depression 86474 0009 F34.1 no meds needed Adult heal th examination 784279580 Z00.00 Colonoscop y 2016 nl, 10yrsPSA, 07/11Pneum ovax 04/2015Pre vnar 12/2016, 07/2019FLU - 08/06/2024 ([place];april )COVID- 12/18/20, 01/08/21 Coronary arteriosclerosis 65489599 I25.10 on meds Peripheral vascular disease 021669255 I73.9 symptoms are better Carotid ar austen stenosis 16965349 I65.29 on plavix Screening for malignant neoplasm of prostate 527269493 Z12.5 [id number] Juan Gore MD [facility] Internal Med [facility] [address] [place] [address] 12/06/2024 14:21:26 12/06/2024 15:13:07 Essential hypertension 33964393 I10 under control Chronic ob structive pulmonary disease 87485942 J44.9 under control Cerebrovas cular accident 100093664 I63.9 on meds, no recurrence Low back pain 782823861 M54.50 tylenol Arthritis 6550524 M19.90 tylenol Smoker 12242185 F17.200 advised to quit , has cut down Multiple n odules of lung 216666262 R91.8 needs LDCT every year, Chronic depression 27466 0009 F34.1 no meds needed Adult heal th examination 111925639 Z00.00 Colonoscop y 2016 nl, 10yrsPSA, 08/14/24Pn eumovax 04/2015Pre vnar 12/2016, 07/2019FLU - 08/06/2024 (juan carlos )COVID- 12/18/20, 01/08/21 Coronary arteriosclerosis 52403465 I25.10 on meds Peripheral vascular disease 014575562 I73.9 symptoms are better Carotid ar austen stenosis 30239215 I65.29 on plavix Kidney disease 10226486 N08 Anemia 610050044 D64.9 Health Concerns Section Related Observation LastModified by Organization Detai ls LastModified Time None Recorded Concern Status LastModified by Organization Details LastModified Time None Recorded Advance Directives Directive Y: Payers Encounter Date Sequence Insurance Name Policy Number Policy Guajardo Covered Member ID Guajardo Member ID Guarantor Name 06/24/2023 1 [facility] - MEDICARE COMPLETE - POS (MEDICARE REPLACEMENT HMO) [id number] Greg Srivastava [id number] Greg Srivastava 04/10/2024 1 [facility] - MEDICARE COMPLETE - POS (MEDICARE REPLACEMENT HMO) [id number] Greg Srivastava [id number] Greg Srivastava 2024 1 [facility] - MEDICARE COMPLETE - POS (MEDICARE REPLACEMENT HMO) [id number] Greg Srivastava [id number] Greg Srivastava 08/08/2024 1 [facility] - MEDICARE COMPLETE - POS (MEDICARE REPLACEMENT HMO) [id number] Greg Srivastava [id number] Greg Srivastava 12/06/2024 1 [facility] - MEDICARE COMPLETE - POS (MEDICARE REPLACEMENT HMO) [id number] Greg Sly Carola [id number] Greg Srivastava Notes Date Note Type Note [...] iron in the past Juan Gore MD [address] [place] [address], [facility] [address], [place], [address], [place] [employer] 06/24/2023 13:23:42 04/10/2024 text/html Doing fine, comp [...] cardiology, Dopplers 07/11 Juan Gore MD [address] [facility], [facility] [address], [place], [address], [facility] [employer] 04/11/2024 08:35:35 2024 text/html Primary care/Referring provider: [...] walking one mileAlleviating factors: restModified [employer] [place] (mMRC) Dyspnea Scale - Grade 1Grade 0 [...] no chance of dozing. Tenzin Horton MD [address] [place] [address], [facility] [address], [place], [address], [place] - [facility] [employer] 2024 15:56:06 08/08/2024 text/html Doing fine, comp liant to medications, no side affects, here for follow up.PT IS NOT FASTING ( [facility] ) CAD- s/p card cath, Dr Ledesma, [...] benign old granulomatous disease, last LDCT 05/12seen puljustino burgess def- on otcOsteoarthritis-med s it helps, mostly hands, no pain in other jointsMeds- Diclofenac 75 mg BID prn, usually takes 4x a weekh/o Anemia- improved has taken iron in the past Carotid artery stenosis- 70%, seen cardiology, Dopplers 07/11 Juan Gore MD [address], [place], [address], [place] 08/08/2024 15:37:17 12/06/2024 text/html Doing fine, comp liant to medications, no side affects, here for follow up.PT IS FASTING ( [facility] ) CAD- s/p card cath, Dr Ledesma, [...] showed benign old granulomatous disease, last LDCT 05/12marsha puljustino burgess def- on otcOsteoarthritis-med s helps, mostly hands, no pain in other jointsMeds- NOT on Diclofenac due to kidney diseaseh/o Anemia- improved has taken iron in the past Carotid artery stenosis- 70%, seen cardiology, Dopplers 07/11 Juan Gore MD [address], [place], [address], [place] 12/06/2024 14:58:37
--- OUTSIDE RECORDS SUMMARY | 2025-01-09 15:29 | XMS_ITS | Continuity of Care Document ---
Author Organization [facility] Address [address] [place] [address] Phone Care Team Providers Care Inspector Heating And Refrigeration Name Role Phone Usha Aguilar DO Unavailable Unavailable Procedures Procedure Date Physical Exam Respirator Questionnaire Form Review Nov Physical Exam Advance Directives Directive Yes / No Effective Date File Name No Information Encounters Encounter Description Practice Location Reason(s) For Visit Diagnoses Date Provider Providers Copied on Encounter Orthopedic Pricing Assistant, [address] [place] [address], [id number], tel:[phone] [facility] No Information 9 Lauren Kerr. [address] [place] [address], [place] [address], [place], [place], [id number] , . tel:[phone] Family History Family Member Type Diagnosis Age At Onset No Information Payers Payer name Insurance type Covered constitution party ID Authorgatito romerojonathan(s) [id number] Social History Type Description Quantity Date Captured [...]
--- OUTSIDE RECORDS SUMMARY | 2025-01-09 15:29 | XMS_ITS ---
Author Organization [facility] Address [address] [place] [address] Care Team Providers Care Supply Requirements Officer Name Role Phone Bao Collier Unavailable [phone] JUAN GORE Unavailable Unavailable Encounters Encounter Location Date Provider Diagnosis [place] [facility] [address] [facility] [address] [place] [address] 01/02/2025 Bao Collier PLAN OF TREATMENT No Information Progress Notes * Greg WOOTEN EDOB:1955 (69 yo M)Acc No.[id number]:01/02/2025 Progress Notes Patient: Greg WOOTEN Provider: MD GISELLE, Rachel.Gerardo.C.P, F.A.S.N. :1955 Age:69 Y Sex:Male Date:01/02/2025 Address:[address] [place], [place] [address] [address] Subjective: * Chief Complaints: * * Medical History: Objective: Assessment: Plan: * Treatment: * Billing Information: * Visit Code: * Procedure Codes: * Sign off status: Pending * Provider: MD GISELLE, Rachel.Gerardo.C.P, F.A.S.N. Date: 01/02/2025
--- OUTSIDE RECORDS SUMMARY | 2025-01-09 15:30 | XMS_ITS ---
Author Organization [facility] Address [address] [place] [address] Care Team Providers Care Pin Machine Operator Name Role Phone Nando Bao Unavailable [phone] JUAN GORE Unavailable Unavailable PROBLEMS Problem Type ICD Code Onset Dates Problem Status W/U Status Risk SNOMED Code Notes Problem Chronic kidney disease, stage 3b (N18.32) Active confirmed Chronic kidney disease stage 3B (disorder) (158848959) Problem Essential hypertension (I10) Active confirmed Essential hypertension (43613838) Problem Renal osteodystrophy (N25.0) Active confirmed Renal osteodyst rophy (43411149) Problem Secondary hyperparathyroidism of renal origin (N25.81) Active confirmed Secondary hyperparathyroidism of renal origin (54608471) Problem Type 2 diabetes mellitus with diabetic chronic kidney disease (E11.22) Active confirmed Diabetic renal disease (147739237) Problem Hyperlipidemia, unspecified (E78.5) Active confirmed Hyperlip idemia (82995160) Problem Tobacco use (Z72.0) Active confirmed To bacco use (214729205) Problem Cerebral infarction, unspecified (I63.9) Active confirmed Cerebral infarction (705756084) Problem Peripheral vascular disease, unspecified (I73.9) Active confirmed Peripheral vasc ular disease (394885230) Encounters Encounter Location Date Provider Diagnosis [place] [facility] [address] [place] [address] 12/12/2024 Bao Collier Chronic kidney disea se, [...] unspecified (ICD-10 - I73.9) PLAN OF TREATMENT No Information Progress Notes * Greg WOOTEN EDOB:1955 (69 yo M)Acc No.[id number]:12/12/2024 Progress Notes Patient: Greg WOOTEN Provider: MD GISELLE, F.A.C.P, F.A.S.N. :1955 Age:69 Y Sex:Male Date:12/12/2024 Address:[address] [place] [address] Subjective: * Chief Complaints: * * Medical [...] Treatment: * Billing Information: * Visit Code: 87991 Office Visit, New Pt., Level 5. * Procedure Codes: * Sign off status: Pending * Provider: MD GISELLE, F.A.C.P, F.A.S.N. Date: 12/12/2024
--- OUTSIDE RECORDS SUMMARY | 2025-01-09 15:30 | XMS_ITS | Continuity of Care Document ---
Author Organization [facility] Address [address] [place] [address] Phone Care Team Providers Care Lure Maker Name Role Phone Juarez OD, Celio Unavailable Unavailable Procedures Procedure Date Office/outpatient Visit, Est Office/outpatient Visit, Est Eye Exam, New Patient Advance Directives Directive Yes / No Effective Date File Name No Information Encounters Encounter Description Practice Location Reason(s) For Visit Diagnoses Date Provider Providers Copied on Encounter Office/outpat ient Visit, [facility], [address] [place] [address] [address], [place], [place], [id number], [place] tel:[phone] [facility] No Information 8-201 0 Juarez OD Celio. [address], [place], [address], [place]. tel:[phone] Office/outpat ient Visit, [facility], [address] [place] [address] [address], [place], [place], [id number], [place] tel:[phone] [facility] No Information 4-201 0 Juarez OD Celio. [address] [facility] [address], [place], [address], [place]. tel:[phone] [facility], [address] [place] [address] [address], [place], [place], [id number], tel:[phone] [facility] No Information 3-201 0 Juarez OD Celio. [address] , [address], [place], [address], [place]. tel:[phone] Referring Provider: Dario Lopez [address], [place], [address]. tel:[phone] Family History Family Member Type Diagnosis Age At Onset No Information Payers Payer name Insurance type Covered libertarian ID Authorlorettabney medina(s) [facility] Commercial [employer] [id number] Social History Type Description Quantity Date Captured [...]
--- OUTSIDE RECORDS SUMMARY | 2025-01-09 15:30 | XMS_ITS | CONTINUITY OF CARE DOCUMENT ---
Author Name jered lawton Address Unknown Organization [facility] Address [address] [facility] [address] [place] [address] Phone [phone] Care Team Providers Care Automotive Internet Sales Manager Name Role Phone Rohan Garza MD Unavailable [phone] Dario Lopez MD Unavailable Dario Lopez MD Unavailable [phone] PROBLEMS Condition Status Date Provider Notes Hyperlipidemia active Rohan Garza MD CAD active Rohan Garza MD Bradycardia active Abdi Meehant Claudication bilateral active Rohan swan MD Dyspnea on exertion active Rohan Forbes Abnormal EKG active Rohan Garza MD Cataract, bilateral active Rohan Forbes PVD active Rohan Garza MD CVA active Rohan Garza MD HTN essential active Rohan Garza MD Smoker active Rohan Garza MD Carotid artery disease active Rohan swan MD Cardiovascular screening active Rohan hernandez MD ENCOUNTERS Date Type Provider Location Encounter Diag nosis - In-person encounter Office Visit Rohan Garza MD [place] [facility] - In-person encounter Office Visit Rohan Garza MD [place] [facility] - In-person encounter Office Visit Rohan Garza MD [place] [facility] Hyperlipidemia - In-person encounter Office Visit Rohan Garza MD [place] [facility] BradycardiaCAD - In-person encounter Office Visit Rohan Garza MD [place] [facility] Dyspnea on exertionClaudication bilateral - In-person encounter Office Visit Rohan Garza MD [place] [facility] Cardiovascular screeningCarotid artery diseaseSmokerHTN essentialCVAPVDCataract, bilateralAbnormal EKG VITAL SIGNS Date Observation Value Provider Body Mass Index (Ratio) 20.21 kg/m2 Maureen Garza MD blood pressure, diastolic 67 mm[Hg] Malik espino Wilson blood pressure, systolic 114 mm[Hg] Dana gallegos Wilson oxygen saturation, oximetry 100 % [facility] pulse rate 92 /min [facility] weight E&M 125.2 [lb_av] [facility] blood pressure, cuff size regular Malik kenzie Wilson height E&M 66 [in_i] [facility] Body Mass Index (Ratio) 19.85 [...] Sanchez blood pressure, systolic 126 mm[Hg] Tab [facility] oxygen saturation, oximetry 99 % [facility] respiratory rate E&M 12 /min [facility] pulse rate 72 /min [facility] weight E&M 120.8 [lb_av] [facility] height E&M 66 [in_i] [facility] Body Mass Index (Ratio) 19.37 kg/m2 Maureen Garza MD blood pressure, cuff size regular [facility] blood pressure, diastolic 58 mm[Hg] [facility] blood pressure, systolic 116 mm[Hg] [facility] oxygen saturation, oximetry 98 % [facility] respiratory rate E&M 14 /min [facility] iller pulse rate 76 /min [facility] weight E&M 120 [lb_av] [facility] height E&M 66 [in_i] [facility] Body Mass Index (Ratio) 19.53 kg/m2 Maureen Garza MD blood pressure, cuff size regular [facility] blood pressure, diastolic 86 mm[Hg] [facility] blood pressure, systolic 141 mm[Hg] [facility] pulse rate 90 /min [facility] oxygen saturation, oximetry 96 % [facility] respiratory rate E&M 16 /min [facility] iller weight E&M 121 [lb_av] [facility] height E&M 66 [in_i] [facility] Body Mass Index (Ratio) 20.01 kg/m2 Maureen Garza MD blood pressure, cuff size regular [facility] blood pressure, diastolic 68 mm[Hg] [facility] blood pressure, systolic 108 mm[Hg] [facility] respiratory rate E&M 16 /min Samia Sanabria iller oxygen saturation, oximetry 97 % Samia Sanchez pulse rate 78 /min Samia Sanchez weight E&M 124 [lb_av] Samia Sanchez height E&M 66 [in_i] Samia Sanchez ALLERGIES No Known Drug Allergies HISTORY OF MEDICATION USE Medication Status Instructions Dates Provider Indications Com ments atorvastatin 40 mg tablet active TAKE 1 TABLET BY MOUTH EVERY DAY Rohan Garza MD cilostazol 100 mg tablet active [...] Policy type / Coverage type Mary red libertarian ID [employer] MEDICARE AD[employer]AGE [address] (HMO POS) Medicare [id number] ADVANCE DIRECTIVES Name Date DISCUSSED - NO DECISION MADE TREATMENT PLAN Date Name Performer Cardiology:This visi t has been a part of the consistent, comprehensive, and ongoing management of the chronic medical condition(s) listed above for the patient. Abdi [facility] Cardiology: T his visit has been a part of the consistent, comprehensive, and ongoing management of the chronic medical condition(s) listed above for the patient. T he Patient was reencouraged to stop smoking. Abdi Meehan Cardiology Abdi [facility] Cardiology:This visi t has been a part of the consistent, comprehensive, and ongoing management of the chronic medical condition(s) listed above for the patient. BP today: 114/67 P rior BP: 122/68 (05/28/2024) His updated medication list for this problem includes: Lisinopril 20 Mg Tablet (Lisinopril) Aspirin 81 Mg Tablet,delayed Release (dr/ec) (Aspirin) ..... Take 1 tablet by mouth once a day [facility]di [facility] Cardiology:This visi t has been a part of the consistent, comprehensive, and ongoing management of the chronic medical condition(s) listed above for the patient. Abdi [facility] Cardiology:This visi t has been a part of the consistent, comprehensive, and ongoing management of the chronic medical condition(s) listed above for the patient. His updated medication list for this problem includes: Atorvastatin 40 Mg Tablet (Atorvastatin) ..... Take 1 tablet by mouth every day Abdi [facility] Cardiology:This visi t has been a part [...] Cardiology Rohan Forbes Cardiology: B P today: 141/86 P rior [...]
--- OUTSIDE RECORDS SUMMARY | 2025-01-09 15:30 | XMS_ITS | Patient Health Record ---
Author Organization [facility] Address [address] [place] [address] Care Team Providers Care Electro Optics Engineer Name Role Phone Bao Collier Unavailable [phone] JUAN GORE Unavailable Unavailable REASON FOR REFERRAL No Information PROBLEMS Problem Type ICD Code Onset Dates Problem Status W/U Status Risk SNOMED Code Notes Problem Type 2 diabetes mellitus with diabetic chronic kidney disease (E11.22) Active confirmed Diabetic renal disease (868818398) Problem Hyperlipidemia, unspecified (E78.5) Active confirmed Hyperlip idemia (42732587) Problem Cerebral infarction, unspecified (I63.9) Active confirmed Cerebral infarction (198049868) Problem Peripheral vascular disease, unspecified (I73.9) Active confirmed Peripheral vasc ular disease (838881192) Problem Renal osteodystrophy (N25.0) Active confirmed Renal osteodyst rophy (31088599) Problem Secondary hyperparathyroidism of renal origin (N25.81) Active confirmed Secondary hyperparathyroidism of renal origin (74882398) Problem Tobacco use (Z72.0) Active confirmed To bacco use (673129298) Problem Essential hypertension (I10) Active confirmed Essential hypertension (11663901) Problem Chronic kidney disease, stage 3b (N18.32) Active confirmed Chronic kidney disease stage 3B (disorder) (218254577) Encounters Encounter Location Date Provider Diagnosis [place] [facility] [address] [facility] [address] [place] [address] 12/12/2024 Bao Collier Chronic kidney disea se, stage 3b N18.32 ; Essential hypertension I10 ; Renal osteodystrophy N25.0 ; Secondary hyperparathyroidism of renal origin N25.81 ; Type 2 diabetes mellitus with diabetic chronic kidney disease E11.22 ; Hyperlipidemia, unspecified E78.5 ; Tobacco use Z72.0 ; Cerebral infarction, unspecified I63.9 and Peripheral vascular disease, unspecified I73.[address] [place] [facility] [address] [facility] [address] [place] [address] 01/02/2025 Bao Collier ASSESSMENTS Encounter Date Diagnosis Assessment Notes Treatment [...]
== END 2025-01-09 13:44 | disposition home or self-care (01) ==
PROVIDERS: PCP Internal Medicine; Visit Provider Specialist
DX: R93.421 Abnormal radiologic findings on diagnostic imaging of right kidney (principal); R93.422 Abnormal radiologic findings on diagnostic imaging of left kidney; N18.30 Chronic kidney disease, stage 3 unspecified
CPT/HCPCS: 76770

== ENCOUNTER 2025-04-08 08:32 | Outpatient (CLI) | payer MEDICARE, SELFPAY ==
--- OUTSIDE RECORDS SUMMARY | 2025-04-08 08:38 | XMS_ITS ---
Author Organization [facility] Address [address] [facility] [address] [facility] [address] [place] [address] Care Team Providers Care History Faculty Member Name Role Phone Nando Bao Unavailable [phone] JUAN GORE Unavailable Unavailable Encounters Encounter Location Date Provider Diagnosis [place] [facility] [address] [facility] 15 [place] [address] 03/08/2025 Bao Collier Chronic kidney disea se, [...] unspecified (ICD-10 - R80.9) Plan Of Treatment Next Appt Details Provider Name:Bao Collier , 05/03/2025 02:45:00 PM, [address], [facility], [place], [address], Progress Notes * Gerg WOOTEN EDOB:1955 (69 yo M)Acc No.[id number]:03/08/2025 Progress Notes Patient: Greg PABON Provider: Alexander BAILON MD, F.A.C.P, F.A.S.N. :1955 A ge:69 Y S ex:Male Date:03/08/2025 [facility] [facility] Subjective: * Chief Complaints: * * Medical [...] Treatment: * Billing Information: * Visit Code: 03026 Office Visit, Est Pt., Level 4. * Procedure Codes: * Electronic signature of Anais Collier MD on 04/08/2025 at 08:37 AM CDT Sign off status: Pending * Provider: Alexander BAILON MD, F.A.C.P, F.A.S.N. Date: 0 03/08/2025 Generated for Printing/Faxing/eTransmitting on: 0 04/08/2025 08:37 AM CDT
--- OUTSIDE RECORDS SUMMARY | 2025-04-08 08:38 | XMS_ITS | Continuity of Care Document ---
Author Organization [facility] Address [address] [facility] [address] [place] [address] Phone Care Team Providers Care Bundle Collector Name Role Phone Juarez OD, Celio Unavailable Unavailable Procedures Procedure Date Office/outpatient Visit, Est Office/outpatient Visit, Est Eye Exam, New Patient Advance Directives Directive Yes / No Effective Date File Name No Information Encounters Encounter Description Practice Location Reason(s) For Visit Diagnoses Date Provider Providers Copied on Encounter Office/outpat ient Visit, [facility], [address] [place] [address] [address], [place], [place], [id number], tel:[phone] [facility] No Information 8-201 0 Juarez OD Celio. [address], [place], [address], [place]. tel:[phone] Office/outpat ient Visit, [facility], [address] [place] [address] [address], [place], [place], [id number], [place] tel:[phone] [facility] No Information 4-201 0 Juarez OD Celio. [address] [facility] [address], [place], [address], [place]. tel:[phone] [facility], [address] [place] [address] [address], [place], [place], [id number], tel:[phone] [facility] No Information 3-201 0 Juarez OD Celio. [address], [place], [address], [place]. tel:[phone] Referring Provider: Dario Lopez [address], [place], [address]. tel:[phone] Family History Family Member Type Diagnosis Age At Onset No Information Payers Payer name Insurance type Covered libertarian ID Authorlorettabeny medina(s) [facility] Commercial CI [id number] Social History Type Description Quantity Date Captured [...]
--- OUTSIDE RECORDS SUMMARY | 2025-04-08 08:38 | XMS_ITS | Continuity of Care Document ---
Author Organization [facility] Address [address] [facility] [address] [place] [address] Phone Care Team Providers Care Corporate Ethics Officer Name Role Phone Usha Aguilar DO Unavailable Unavailable Procedures Procedure Date Physical Exam Respirator Questionnaire Form Review Nov Physical Exam Advance Directives Directive Yes / No Effective Date File Name No Information Encounters Encounter Description Practice Location Reason(s) For Visit Diagnoses Date Provider Providers Copied on Encounter [facility], [address] [place] [address], [id number], tel:[phone] [facility] No Information 9 Lauren Kerr. [address] [place] [address], [place] [address], [place], [place], [id number] , . tel:[phone] Family History Family Member Type Diagnosis Age At Onset No Information Payers Payer name Insurance type Covered alliance party ID Authorgatito [facility]jonathan[id number] Social History Type Description Quantity Date Captured [...]
--- OUTSIDE RECORDS SUMMARY | 2025-04-08 08:38 | XMS_ITS ---
Author Organization [facility] Address [address] [facility] [address] [facility] [address] [place] [address] Care Team Providers Care Internet Marketing Executive Name Role Phone Bao Collier Unavailable [phone] JUAN GORE Unavailable Unavailable Encounters Encounter Location Date Provider Diagnosis [facility] [address] [facility] [address] [place] [address] 01/02/2025 Bao Collier Plan Of Treatment Next Appt Details Provider Name:Bao Nando , 05/03/2025 02:45:00 PM, [address] [address], [place], [place], [facility], Progress Notes * Greg WOOTEN EDOB:1955 (69 yo M)Acc No.[id number]:01/02/2025 Progress Notes Patient: Greg PABON Provider: Alexander BAILON MD, Rachel.Gerardo.C.P, F.A.S.N. :1955 A ge:69 Y S ex:Male Date:01/02/2025 Address:[address] [place], [place] [address] [address] Subjective: * Chief Complaints: * * Medical History: Objective: * Vitals: Assessment: Plan: * Treatment: * Billing Information: * Visit Code: * Procedure Codes: * Electronic signature of Anais Collier MD on 04/08/2025 at 08:37 AM CDT Sign off status: Pending * Provider: Alexander BAILON MD, Rachel.Gerardo.C.P, F.A.S.N. Date: 01/02/2025 Generated for Printing/Faxing/eTransmitting on: 04/08/2025 08:37 AM CDT
--- OUTSIDE RECORDS SUMMARY | 2025-04-08 08:38 | XMS_ITS | Data Portability ---
Author Organization [place] [employer], Main Office Address [address] [place] [address] Care Team Providers Care Camera Person Name Role Phone JUAN LOPEZ Primary Care Provider Assessment Encounter Date Assessment [...] week before return. Nicotine cessation counseling provided. [place]ou for quitting nicotine include getting ready, getting [...] in Quit For Life program Registering at [email or web address] Making a call to 5-133-ORDW-NOW ( ). A strong, clear, personalized message [...] failure or relapse. Patient can enroll in [facility]'s smoking cessation class through Doretha Funez RN [...] further management. Follow-up: 1 year, May 2025 [email or web address] Not available 2024 15:44:55 Plan of Treatment Reminders Order Date Submit Date Provider Last Modified By Organization Details Last Modified Time Details Appointments Establish ed Patient 15 2024 11:00A Justino Lopez MD Not available Not available Not available Any 30 2024 11:00A Justino Horton MD Not available Not available Not available Lab CBC w/ auto diff 2024 025 [facility] Outpatient Registration Lab/Ekg, [address], [place], [address], 12/25/2024 21:07:24 PSA, serum or plasma [address] Lab, [address] [facility] [address] [place] [address], [address], 11/28/2024 10:52:46 CMP, serum or plasma [address] Lab, [address] [facility] [address] [place] [address], [address], 11/28/2024 10:52:46 lipid panel, serum 2023 024 [facility] Lab, [address] [facility] [address] [place] [address], [address], 11/28/2024 13:52:31 CBC w/ auto diff [address] Lab, [address], [address], 11/28/2024 10:52:46 PSA, serum or plasma [address] (Lab), [address] [place], [address], 07/04/2023 09:20:49 CMP, serum or plasma 2022 023 [facility] (Lab), [address] [place], [address], 06/28/2023 15:11:24 lipid panel, serum 2022 023 [facility] (Lab), [address] [place], [address], 06/28/2023 15:11:27 CBC w/ auto diff 2022 023 [facility] (Lab), [address] [place], [address], 06/28/2023 14:44:22 Referral nephrolog ist referral - Please call patient to schedule an appointme nt. Thank you. 2024 025 [email or web address] Bao Collier MD (Nephrology, [address], [address], [place], [address], 03/11/2025 09:58:11 Procedures None recorded. Surgeries None recorded. Imaging CT, chest, w/o contrast 2023 025 [facility] Not available 2024 15:52:42 US, duplex, carotid artery 2022 023 [facility] (One Call Scheduling), [address] [facility], [place], [address], 07/06/2023 11:49:45 Medication Orders albuterol sulfate HFA 90 mcg/actua tion aerosol inhaler 2023 024 [facility]/Pharmacy #[id number], [address], [place], [address], 2024 15:45:05 Stiolto Respimat 2.5 mcg-2.5 mcg/actua tion solution for inhalatio n 2023 024 [facility]/Pharmacy #[id number], [address], [place], [address], 2024 15:45:00 clotrimaz ole-betam ethasone 1 %-0.05 % topical cream 2022 023 [email or web address] [facility]/Pharmacy #[id number], [address], [place], [address], 06/12/2024 13:55:25 Patient TargetsNo targets recorded. Patient Instructions Encounter Date Encounter Id Patient Instructions Last Modified By Organization Details Last Modified Time 06/24/2023 [id number] [email or web address] Not available 06/24/2023 11:11:12 04/10/2024 [id number] dementia rating scale-2* Not available 04/10/2024 16:35:23 depression screening* Not available 04/10/2024 16:35:22 alcohol misuse* Not available 04/10/2024 16:35:23 multi-dimensiona l health assessment questionnaire* Not available 04/10/2024 16:35:23 advance directiv es: care instructions Not available 04/10/2024 16:35:22 [place] Advance Directives Not available 04/10/2024 16:35:23 advance [...] common diseases from occurring) Smoking Risk: Smoker Recommend lung cancer screening with low dose CT scan of the chest in March Alcohol Misuse Screening: Negative Weight: Appropriate Physical activity: Need more exercise/physical activity minimum of 10-20 minutes of activity that causes mild breathlessness/day Nutrition: Average Refer to attached handout Heart-Healthy Diet: After Your Visit Fall Risk (screened today): Low Refer to attached handout Preventing Falls: After your Visit Vaccines Pneumococcal: No further needed Influenza: Your next one in the fall of this year Chronic Disease Risks Stroke: Intermediate Risk Active diagnosis, Continue current treatment plan Heart Attack: Intermediate Risk Active diagnosis, Continue current treatment plan Clogging of the Arteries: Intermediate Risk Active diagnosis, Continue current treatment plan Diabetes: Low Risk I have no recommendations Secondary Prevention/Interven tion (detects treatable diseases before they may cause symptoms, disability, or ) Prostate Cancer Screening: Your next PSA in: June 2024 No digital rectal exam screening necessary Colon Cancer Screening: Colonoscopy Ordered Date Screening Last Performed: Eye Disease Screening: Your next exam in: annually Dementia Risk: Low I have no recommendations Depression Screening: Negative Active diagnosis, Continue current treatment plan [email or web address] Not available 04/10/2024 16:11:35 2024 [id number] complete PFT w/ post bronchodilator spirometry* [facility]5 Not available 2024 15:52:12 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 Thank you. Referring Physician: Juan Lopez, Internal Medicine, Encounter Date: 12/06/2024 Results Created Date Observation Date Name Description Value Unit Range Abnormal Flag Note LastModifiedBy Organization Detail LastModifiedTime 06/28/2006/28/2023 CBC/C OMPLE TE BLD COUNT W/DIF F white blood cells 7.2 x10'3 /uL 4.2-10 .8 Not Available [facility] (Lab) [address] [place], [address], 06/28/2023 14:44:22 06/28/2006/28/2023 CBC/C OMPLE TE BLD COUNT W/DIF F red blood cells 4.31 x10'6 /uL 4.10-5 .80 Not Available [facility] (Lab) [address] [place], [address], 06/28/2023 14:44:22 06/28/20 23 06/28/2023 CBC/C OMPLE TE BLD COUNT W/DIF F hemoglobin 13.6 g/dL 13.2-1 7.0 Not Available [facility] (Lab) [address] [place], [address], 06/28/2023 14:44:22 06/28/2006/28/2023 CBC/C OMPLE TE BLD COUNT W/DIF F hematocrit 42.2 % 39.3-5 0.0 Not Available [facility] (Lab) [address] [place], [address], 06/28/2023 14:44:22 06/28/2006/28/2023 CBC/C OMPLE TE BLD COUNT W/DIF F mean red cell volume 97.9 fL 80.0-9 7.0 high Not Available [facility] (Lab) [address] [place], [address], 06/28/2023 14:44:22 06/28/20 23 06/28/2023 CBC/C OMPLE TE BLD COUNT W/DIF F mean red cell hemoglobin 31.6 pg 27.0-3 3.0 Not Available [facility] (Lab) [address] [place], [address], 06/28/2023 14:44:22 06/28/20 23 06/28/2023 CBC/C OMPLE TE BLD COUNT W/DIF F mean RBC HGB concentratio n 32.2 g/dL 31.0-3 6.0 Not Available [facility] (Lab) [address] [place], [address], 06/28/2023 14:44:22 06/28/20 23 06/28/2023 CBC/C OMPLE TE BLD COUNT W/DIF F red cell distribution width 14.2 % 11.8-1 5.5 Not Available [facility] (Lab) [address] [place], [address], 06/28/2023 14:44:22 06/28/20 23 06/28/2023 CBC/C OMPLE TE BLD COUNT W/DIF F platelets 258 x10'3 /uL 150-40 0 Not Available [facility] (Lab) [address] [place], [address], 06/28/2023 14:44:22 06/28/20 23 06/28/2023 CBC/C OMPLE TE BLD COUNT W/DIF F mean platelet volume 9.8 fL 9.0-12 .4 Not Available [facility] (Lab) [address] [place], [address], 06/28/2023 14:44:22 06/28/20 23 06/28/2023 CBC/C OMPLE TE BLD COUNT W/DIF F neutrophils 71.3 % 39.0-7 2.0 Not Available [facility] (Lab) [address] [place], [address], 06/28/2023 14:44:22 06/28/2006/28/2023 CBC/C OMPLE TE BLD COUNT W/DIF F lymphocytes 20.5 % 16.0-4 7.0 Not Available [facility] (Lab) [address] [place], [address], 06/28/2023 14:44:22 06/28/2006/28/2023 CBC/C OMPLE TE BLD COUNT W/DIF F monocytes 5.4 % 5.0-12 .0 Not Available [facility] (Lab) [address] [place], [address], 06/28/2023 14:44:22 06/28/20 23 06/28/2023 CBC/C OMPLE TE BLD COUNT W/DIF F eosinophils 1.4 % 1.0-7. 0 Not Available [facility] (Lab) [address] [place], [address], 06/28/2023 14:44:22 06/28/2006/28/2023 CBC/C OMPLE TE BLD COUNT W/DIF F basophils 1.1 % 0.0-2. 0 Not Available [facility] (Lab) [address] [place], [address], 06/28/2023 14:44:22 06/28/20 23 06/28/2023 CBC/C OMPLE TE BLD COUNT W/DIF F immature granulocytes 0.3 % 0.00-0 .50 Not Available [facility] (Lab) [address] [place], [address], 06/28/2023 14:44:22 06/28/20 23 06/28/2023 CBC/C OMPLE TE BLD COUNT W/DIF F neutrophils, absolute count 5.12 x10'3 /uL 1.5-8. 0 Not Available [facility] (Lab) [address] [place], [address], 06/28/2023 14:44:22 06/28/2006/28/2023 CBC/C OMPLE TE BLD COUNT W/DIF F lymphocytes, absolute count 1.47 x10'3 /uL 1.07-3 .43 Not Available [facility] (Lab) [address] [place], [address], 06/28/2023 14:44:22 06/28/20 23 06/28/2023 CBC/C OMPLE TE BLD COUNT W/DIF F monocytes, absolute count 0.39 x10'3 /uL 0.29-0 .99 Not Available [facility] (Lab) [address] [place], [address], 06/28/2023 14:44:22 06/28/20 23 06/28/2023 CBC/C OMPLE TE BLD COUNT W/DIF F eosinophils, absolute count 0.10 x10'3 /uL 0.02-0 .53 Not Available [facility] (Lab) [address] [place], [address], 06/28/2023 14:44:22 06/28/20 23 06/28/2023 CBC/C OMPLE TE BLD COUNT W/DIF F basophils, absolute count 0.08 x10'3 /uL 0.01-0 .08 Not Available [facility] (Lab) [address] [place], [address], 06/28/2023 14:44:22 06/28/20 23 06/28/2023 CBC/C OMPLE TE BLD COUNT W/DIF F immature granulocytes ,absolute 0.02 x10'3 /uL 0.00-0 .05 Not Available [facility] (Lab) [address] [place], [address], 06/28/2023 14:44:22 10/1006/28/2023 CBC/C OMPLE TE BLD COUNT W/DIF F nucleated red blood cells 0.0 % -0 Not Available [facility] (Lab) [address] [place], [address], 06/28/2023 14:44:22 06/28/20 23 06/28/2023 CBC/C OMPLE TE BLD COUNT W/DIF F NRBC# 0.00 x10'3 /uL Not Available [facility] (Lab) [address] [place], [address], 06/28/2023 14:44:22 06/28/20 23 06/28/2023 COMPR EHENS LEIGH METAB OLIC PANEL sodium 143 mmol/ L 137-14 5 Not Available [facility] (Lab) [address] [place], [address], 06/28/2023 15:11:24 06/28/20 23 06/28/2023 COMPR EHENS LEIGH METAB OLIC PANEL potassium 4.3 mmol/ L 3.5-5. 1 Not Available [facility] (Lab) [address] [place], [address], 06/28/2023 15:11:24 06/28/20 23 06/28/2023 COMPR EHENS LEIGH METAB OLIC PANEL chloride 107 mmol/ L 98-107 Not Available [facility] (Lab) [address] [place], [address], 06/28/2023 15:11:24 06/28/20 23 06/28/2023 COMPR EHENS LEIGH METAB OLIC PANEL carbon dioxide 28 mmol/ L 22-30 Not Available [facility] (Lab) [address] [place], [address], 06/28/2023 15:11:24 06/28/20 23 06/28/2023 COMPR EHENS LEIGH METAB OLIC PANEL anion gap 12.3 mmol/ L 14-22 low Not Available [facility] (Lab) [address] [place], [address], 06/28/2023 15:11:24 06/28/2006/28/2023 COMPR EHENS LEIGH METAB OLIC PANEL glucose 130 mg/dL 70-99 high Not Available [facility] (Lab) [address] [place], [address], 06/28/2023 15:11:24 06/28/20 23 06/28/2023 COMPR EHENS LEIGH METAB OLIC PANEL BUN 21 mg/dL 8-19 high Not Available [facility] (Lab) [address] [place], [address], 06/28/2023 15:11:24 06/28/2006/28/2023 COMPR EHENS LEIGH METAB OLIC PANEL creatinine 1.09 mg/dL 0.66-1 .25 Not Available [facility] (Lab) [address] [place], [address], 06/28/2023 15:11:24 06/28/2006/28/2023 COMPR EHENS LEIGH METAB OLIC PANEL GFR >60 Refer ence Range : [place] ge GFR Healt hy Adult : >60 [...] of age, a pedia tric GFR calcu chelsey is avail able on the [facility] websi te: [email or web address] :[email or web address] ional [email or web address] [email or web address]/gf r_[email or web address] culat or Not Available [facility] (Lab) [address] [place], [address], 06/28/2023 15:11:24 06/28/20 23 06/28/2023 COMPR EHENS LEIGH METAB OLIC PANEL alkaline phosphatase 111 U/L 38-126 Not Available [facility] (Lab) [address] [place], [address], 06/28/2023 15:11:24 06/28/20 23 06/28/2023 COMPR EHENS LEIGH METAB OLIC PANEL alanine aminotransfe rase 24 U/L 0-50 Not Available [facility] (Lab) [address] [place], [address], 06/28/2023 15:11:24 06/28/20 23 06/28/2023 COMPR EHENS LEIGH METAB OLIC PANEL aspartate aminotransfe rase 26 U/L 15-46 Not Available [facility] (Lab) [address] [place], [address], 06/28/2023 15:11:24 06/28/2006/28/2023 COMPR EHENS LEIGH METAB OLIC PANEL bilirubin, total 0.30 mg/dL 0.20-1 .30 Not Available [facility] (Lab) [address] [place], [address], 06/28/2023 15:11:24 06/28/20 23 06/28/2023 COMPR EHENS LEIGH METAB OLIC PANEL calcium 10.2 mg/dL 8.4-10 .2 Not Available [facility] (Lab) [address] [place], [address], 06/28/2023 15:11:24 06/28/2006/28/2023 COMPR EHENS LEIGH METAB OLIC PANEL total protein 7.2 g/dL 6.3-8. 2 Not Available [facility] (Lab) [address] [place], [address], 06/28/2023 15:11:24 06/28/20 23 06/28/2023 COMPR EHENS LEIGH METAB OLIC PANEL albumin 4.2 g/dL 3.0-4. 4 Not Available [facility] (Lab) [address] [place], [address], 06/28/2023 15:11:24 06/28/20 23 06/28/2023 COMPR EHENS LEIGH METAB OLIC PANEL globulin 3.0 g/dL 2.6-4. 2 Not Available [facility] (Lab) [address] [place], [address], 06/28/2023 15:11:24 06/28/2006/28/2023 COMPR EHENS LEIGH METAB OLIC PANEL A/G ratio 1.4 ratio 1.0-2. 0 Not Available [facility] (Lab) [address] [place], [address], 06/28/2023 15:11:24 06/28/2006/28/2023 LIPID PANEL cholesterol 172 mg/dL 140-19 9 NIH TOBIN NSUS RECOM MENDA TION FOR CONNOR STERO L: ADULT CHILD LOW RISK: <200 <170 BORDE RLINE : <200- 239 ----- HIGH RISK: >240 >200 Not Available [facility] (Lab) [address] [place], [address], 06/28/2023 15:11:27 06/28/20 23 06/28/2023 LIPID PANEL triglyceride s 96 mg/dL 0-150 NIH TOBIN NSUS REPOR T RECOM MENDA TION FOR TRIGL YCERI GRACIE: ADULT CHILD LOW RISK: <150 ----- BODER LINE: 150-1 99 ----- HIGH RISK: >200 ----- Not Available [facility] (Lab) [address] [place], [address], 06/28/2023 15:11:27 06/28/2006/28/2023 LIPID PANEL HDL cholesterol 32 mg/dL 40- low Not Available [facility] (Lab) [address] [place], [address], 06/28/2023 15:11:27 06/28/2006/28/2023 LIPID PANEL LDL cholesterol, [...] WILL NOT BE REPOR JD. Not Available [facility] (Lab) [address] [place], [address], 06/28/2023 15:11:27 06/28/20 23 06/28/2023 PSA SCREE N PSA medicare screen 0.20 NG/mL 0.00-4 .00 Not Available [facility] (Lab) [address] [place], [address], 06/28/2023 15:58:08 07/12/2007/12/2023 HEMOG LOBIN A1C HA1C 5.5 % 4.0-6. 0 Diabe marcela Scree jimena Crite roldan: <5.7% Consi stent with absen ce of diabe marcela 5.7-6 .4% Consi stent with incre ased risk for diabe marcela (pred iabet es) >OR=6 .5% Consi stent with diabe marcela REFER ENCE: Diabe marcela Care 2016, 39(Beatty ppl.1 ):s13 -s22 Not Available [facility] (Lab) [address] [place], [address], 07/12/2023 15:05:35 07/06/20 23 07/06/2023 US, duple x, carot id arter y No observ ation record ed. [email or web address] [facility] [address] [place], [address], 07/06/2023 16:41:50 07/31/20 23 07/12/2023 compl ete PFT w/ post [facility] hodil ator vale metry * No observ ation record ed. [facility] (One Call Scheduling) [address] [place], [address], 07/31/2023 14:11:50 08/31/20 23 08/30/2023 lower extre mity elect romyo gram (PROC ) No observ ation record ed. Not Available 2022 15:10:01 06/12/20 24 06/12/2024 CT, chest , w/o contr ast No observ ation record ed. [email or web address] [facility] [address] [place], [address], 06/12/2024 13:54:40 Result Notes None recorded. Problems Name Problem SNOMED Code Status Onset Date Resolution Date Notes Provider Name and Address Organization Details Recorded Time Chronic obstructiv e pulmonary disease 21663015 Active Not Available [employer] 3 06:26:40 Chronic depression 808951026 Active Not Available [facility] 3 06:26:40 Cerebrovas cular accident 906043423 Active Not Available [employer] 3 06:26:40 Arthritis 0940166 Active Not Available [facility] 3 06:26:40 Essential hypertensi on 52405483 Active Not Available [facility] 3 06:26:40 Dental caries 91130778 Active Not Available [facility] 3 06:26:40 Smoker 51789791 Active 2008 Not Available [facility] 3 06:26:40 Anemia 403885485 Active 2017 Not Available [facility] 3 06:26:40 Multiple nodules of lung 191370555 Completed 202004/06/2021 Not Available [facility] 3 04:53:19 Multiple nodules of lung 963392381 Active 2021 Not Available [facility] 3 06:26:40 Candidiasi s of skin 13082495 Active 2022 Not Available [facility] 3 06:26:40 Hyperglyce tyson 82670875 Active 2022 Not Available [facility] 3 06:26:40 Carotid artery stenosis 32592375 Active 2022 Not Available [facility] 3 06:26:40 Peripheral vascular disease 298637676 Active 2022 legs Juan Lopez MD [address], [address], [place], [address] , [email or web address] [facility] [employer] [facility] 3 15:09:58 Coronary arterioscl erosis 97559029 Active 2023 Juan Lopez MD [address], [address], [place], [address] , Drive [facility] [email or web address] [facility] 4 16:34:30 Low back pain 594420459 Active 2023 MONO Garvin null, [email or web address] [facility] [email or web address] [facility] 4 15:01:41 Kidney disease 91706351 Active 2024 Juan Lopez MD [address], [address], [place], [address] , Drive [facility] [email or web address] [facility] 5 14:52:49 Notes:Medical History: TIA 1 990 Depression Bilateral cataracts Rhinitis to cat IgE 98 IU/mL Eosinophils 120/uL Hypertension Alpha-1 antitrypsin PiMM 216 mg% Nicotine dependence Mild COPD Anti-MPO 5.8 units P-ANCA 1:320 titers C-ANCA 1:80 titers FRANK speckled 1:160 Bilateral pulmonary nodules Subsegmental atelectasis RAMONE 3.9 x 3.4 cm AAA Normocytic anemia Thoracic DDD Procedure History: Colonoscopies 2008, 2013, 2018 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 Procedures Surgical History Date Name Laterality Status Provider Name and Address Organization Details Recorded Time 4 Medicare Wellness CPT Code, subsequent completed Radha Filomena, [facility] 08/08/2024 15:01:32 4 Advanced Care Planning completed Radha Butt [facility] 08/08/2024 15:01:31 4 Medicare Wellness CPT Code, subsequent completed Liv Wilson [facility] 04/10/2024 15:22:48 4 Advanced Care Planning completed Roxana Gómez RN [facility] 04/10/2024 16:06:55 3 Medicare Wellness CPT Code, subsequent completed Cecy Batista RN [facility] 02/22/2023 11:23:36 Imaging Results None recorded. Procedure Notes None recorded. Medical Equipment None [...] in Arterial blood by Pulse oximetry Systolic And Diastolic Provider Name and Address Organization Details Last Updated DateTime 5 165.1 cm 19.6 kg/m2 55564.9 g 97.5 [degF] 97 /min 95 % 95 % 136/70 mm[Hg] Radha alejandro Gerardo [employer] 5 14:30:09 Date Recorded Body height Body mass index (BMI) Body weight Body temperature Heart rate Oxygen saturation Oxygen saturation in Arterial blood by Pulse oximetry Systolic And Diastolic Provider Name and Address Organization Details Last Updated DateTime 4 165.1 cm 20 kg/m2 71299.0 8 g 98.7 [degF] 70 /min 98 % 98 % 140/70 mm[Hg] Liv Wilson [employer] 4 15:19:41 Date Recorded Body height Body mass index (BMI) Body weight Body temperature Heart rate Heart rate Oxygen saturation Oxygen saturation in Arterial blood by Pulse oximetry Respiratory rate Systolic And Diastolic Provider Name and Address Organization Details Last Updated DateTime 4 165.1 cm 20.5 kg/m2 86691.3 g 98.3 [degF] 85 /min 85 /min 98 % 98 % 16 /min 124/66 mm[Hg] Genevieve Carey MA [employer] 4 15:27:40 Date Recorded Body height Body mass index (BMI) Body weight Body temperature Heart rate Oxygen saturation Oxygen saturation in Arterial blood by Pulse oximetry Systolic And Diastolic Provider Name and Address Organization Details Last Updated DateTime 3 165.1 cm 20.5 kg/m2 05564.8 6 g 97.1 [degF] 68 /min 97 % 97 % 138/68 mm[Hg] Radha alejandro Gerardo [employer] 3 11:14:41 Date Recorded Body height Body mass index (BMI) Body weight Body temperature Heart rate Oxygen saturation Oxygen saturation in Arterial blood by Pulse oximetry Systolic And Diastolic Provider Name and Address Organization Details Last Updated DateTime 4 165.1 cm 20.3 kg/m2 62552.2 7 g 97.7 [degF] 90 /min 94 % 94 % 128/64 mm[Hg] Radha alejandro Gerardo [employer] 4 15:03:13 Social History Question Answer Notes LastModified by Organization Details LastModified Time Tobacco Smoking Status Current Every Day Smoker Not Available [facility] 11/17/2022 04:13:57 Do You Have An Advance Directive? Yes [email or web address] [id number] Information not available 11/17/2022 Are You Blind Or Do You Have Difficulty Seeing? No [email or web address].[id number] [id number] Information not available 11/17/2022 Is Blood Transfusion Acceptable In An Emergency? Yes [email or web address] Information not available 04/10/2024 What Is Your Level Of Caffeine Consumption? Moderate MIGRATION.030 [id number] Information not available 11/17/2022 How Much Tobacco Do You Chew? None [email or web address].[id number] [id number] Information not available 11/17/2022 What Is Your Code Status? Other [email or web address] Information not available 04/10/2024 In The 14 Days Before Symptom Onset, Have You Had Close Contact With A Laboratory-conf irmed COVID-19 While That Case Was Ill? No MIGRATION.030 [id number] Information not available 11/17/2022 In The 14 Days Before Symptom Onset, Have You Had Close Contact With A Person Who Is Under Investigation For COVID-19 While That Person Was Ill? No MIGRATION.0301 [id number] Information not available 11/17/2022 Are You Deaf Or Do You Have Serious Difficulty Hearing? No MIGRATION.0301 [id number] Information not available 11/17/2022 What Type Of Diet Are You Following? REGULAR MIGRATION.030 [id number] Information not available 11/17/2022 Which Illicit Or Recreational Drugs Have You Used? None [email or web address].030 [id number] Information not available 11/17/2022 What Is The Highest Grade Or Level Of School You Have Completed Or The Highest Degree You Have Received? [id number] [email or web address] Information not available 04/10/2024 Do You Have An Electrostatic Air Filter? No MIGRATION.030 [id number] Information not available 11/17/2022 How Many Days Of Moderate To Strenuous Exercise, Like A Brisk Walk, Did You Do In The Last 7 Days? 0 [email or web address] Information not available 04/10/2024 Have There Been Any Changes To Your Family Or Social Situation? No MIGRATION.0301 [id number] Information not available 11/17/2022 What Is The Fluoride Status Of Your Home? Fluoridated Information not available 02/22/2023 Are There Any Guns Present In Your Home? Yes MIGRATION.0301 [id number] Information not available 11/17/2022 Do You Have A Humidifier? Yes MIGRATION.0301 [id number] Information not available 11/17/2022 Do You Use Insect Repellent Routinely? No MIGRATION.0301 [id number] Information not available 11/17/2022 Where Do You Live? [place] MIGRATION.0301 [id number] Information not available 11/17/2022 Presence Of Domestic Violence No [email or web address] Information not available 02/22/2023 Guns Present In The Home? Yes [email or web address] Information not available 02/22/2023 Are You Able To Care For Yourself? Yes [email or web address] Information not available 02/22/2023 Are You Blind Or Do Yo Have Difficulty Seeing? No Cataracts [email or web address] Information not available 02/22/2023 Are You Deaf Or Do You Have Serious Difficulty Hearing? No Information not available 02/22/2023 General Stress Level? Moderate [email or web address] Information not available 02/22/2023 Live Alone Of With Others? Alone [email or web address] Information not available 04/10/2024 Do You Have A Medical Power Of Quality Compliance Manager? Yes [email or web address] Information not available 04/10/2024 Do You Have Moisture Problems In Your Home? No [id number] Information not available 11/17/2022 What Was The Date Of Your Most Recent Tobacco Screening? 04/10/2024 [email or web address] Information not available 04/10/2024 How Many Children Do You Have? 0 [email or web address] Information not available 04/10/2024 What Is Your Current Pack Years? 30ormorepackyears [email or web address] Information not available 02/22/2023 Do You Have Any Pets? Yes [email or web address] Information not available 04/10/2024 What Is Your Relationship Status? [email or web address] Information not available 04/10/2024 Do You Use Your Seat Belt Or Car Seat Routinely? Yes [email or web address] Information not available 04/10/2024 Are You Sexually Active? No [email or web address] Information not available 04/10/2024 Do You Have Smoke And Carbon Monoxide Detectors In Your Home? Yes States Does Have Thiem [email or web address] Information not available 04/10/2024 At What Age Did You Start Smoking Tobacco? 16 [email or web address].[id number] [id number] Information not available 11/17/2022 Are You Passively Exposed To Smoke? No [email or web address].[id number] [id number] Information not available 11/17/2022 Are There Any Smokers In Your House? No [email or web address] Information not available 04/10/2024 How Much Tobacco Do You Smoke? 1 PPD As Of 04/10/2024 States Down To A Pack A Week. [email or web address] Information not available 04/10/2024 What Types Of Sporting Activities Do You Participate In? None [email or web address] Information not available 04/10/2024 Do You Use Sunscreen Routinely? No [email or web address].0301 [id number] Information not available 11/17/2022 Has Tobacco Cessation Counseling Been Provided? Yes Offered And Refused [email or web address] Information not available 04/10/2024 How Many Years Have You Smoked Tobacco? 51 Information not available 02/22/2023 Have You Recently Traveled Abroad? No [email or web address].[id number] [id number] Information not available 11/17/2022 Do You Have Difficulty Walking Or Climbing Stairs? No MIGRATION.0301 [id number] Information not available 11/17/2022 Do You Have Any Dietary Restrictions? No [email or web address] Information not available 04/10/2024 Sex: Male Functional Status Question Answer Note LastModified by Organizat ion Details LastModified Time Do you use any illicit or recreational drugs? No [email or web address] Information not available 04/10/2024 Do you or have you ever used any other forms of tobacco or nicotine? No [email or web address] Information not available 04/10/2024 What is your level of alcohol consumption? None [id number].[id number] 026 Information not available 11/17/2022 Are you currently employed? No [email or web address] Information not available 04/10/2024 Do you have transportation difficulties? No MIGRATION.[id number] 026 Information not available 11/17/2022 Are you able to walk? YESWOREST MIGRATION.[id number] 026 Information not available 11/17/2022 Do you have difficulty doing errands alone? No MIGRATION.[id number] 026 Information not available 11/17/2022 Are you able to care for yourself? 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 No MIGRATION.[id number] 026 Information not available 11/17/2022 What is your exercise level? None [email or web address] Information not available 04/10/2024 Mental Status Question Answer Note LastModified by Organizat ion Details LastModified Time Do you feel stressed (tense, restless, nervous, or anxious, or unable to sleep at night)? [id number] [email or web address] Information not available 04/10/2024 Do you have difficulty concentrating, remembering or making decisions? No moments of forgetfulness [email or web address] Information not available 04/10/2024 Family History Relationship Description Onset Age of this Age Resolved Age Notes LastModified by Organization Details LastModified Time Mother Liver cell carcinoma [id number] Not available 11/17/2022 04:43:58 Medical History No medical history recorded. Immunizations Vaccine Type Date Status Note Provider Nam e and Address Organization Details Recorded Time COVID-19, mRNA, LNP-S, PF, marisol-sucrose, 30 mcg/0.3 mL 4 completed SAUL Harp, [facility] [employer] 08/07/2024 15:19:44 influenza, unspecified formulation 4 completed SAUL Harp, [place] [employer] [facility] [employer] 08/07/2024 15:20:57 Influenza, high-dose, quadrivalent, PF 3 completed Juan Lopez MD [address] [place] [address], [address], [address], [facility] [employer] [facility] [employer] 06/24/2023 13:23:38 COVID-19, mRNA, LNP-S, PF, 30 mcg/0.3 mL dose 2 completed Not Available [facility] 08/09/2023 06:26:40 SARS-COV-2 (COVID-19) vaccine, UNSPECIFIED 1 completed Not Available [facility] 08/09/2023 06:26:40 SARS-COV-2 (COVID-19) vaccine, UNSPECIFIED 1 completed Not Available [facility] 08/09/2023 06:26:40 SARS-COV-2 (COVID-19) vaccine, UNSPECIFIED 1 completed Not Available [facility] 08/09/2023 06:26:40 Pneumococcal conjugate PCV 13 9 completed Not Available [facility] 08/09/2023 06:26:40 Influenza, high-dose, quadrivalent, PF 9 completed Not Available [facility] 08/09/2023 06:26:40 Influenza, high-dose, quadrivalent, PF 2 completed Not Available [facility] 08/09/2023 06:26:40 Influenza, high-dose, quadrivalent, PF 1 completed Not Available [facility] 08/09/2023 06:26:40 Influenza, high-dose, quadrivalent, PF 0 completed Not Available [facility] 08/09/2023 06:26:40 Pneumococcal conjugate PCV 13 7 completed Not Available [facility] 08/09/2023 06:26:40 Influenza, split virus, quadrivalent, preservative 6 completed Not Available [facility] 08/09/2023 06:26:40 pneumococcal polysaccharide PPV23 5 completed Not Available [facility] 08/09/2023 06:26:40 Influenza, split virus, quadrivalent, PF 9 completed Not Available [facility] 08/09/2023 06:26:40 Influenza, split virus, trivalent, preservative 4 completed Not Available [facility] 08/09/2023 06:26:40 Influenza, split virus, trivalent, preservative 3 completed Not Available [facility] 08/09/2023 06:26:40 Past Encounters Encounter ID Performer Location Encounter Start Date Encounter Closed Date Diagnosis/Indication Diagnosis SNOMED-CT Code Diagnosis ICD10 Code Diagnosis Note [id number] Juan Lopez MD [facility] [place] Internal [facility] [address] [place] [address] 02/17/2021 00:00:00 02/17/2021 12:33:19 [id number] Juan Lopez MD [facility] [place] Internal [facility] [address] [place] [address] 06/22/2021 00:00:00 06/22/2021 12:59:34 [id number] Juan Lopez MD [facility] [address] [place] [address] 10/23/2021 00:00:00 10/23/2021 10:34:10 [id number] Juan Lopez MD [facility] [address] [place] [address] 02/24/2022 00:00:00 02/24/2022 13:29:20 [id number] Tenzin Horton MD [facility] [address] 05/05/2022 00:00:00 05/20/2022 15:17:52 [id number] Tenzin Horton MD [facility] [address] [address] 05/20/2022 00:00:00 05/20/2022 15:36:54 [id number] Juan Lopez MD [facility] [place] Internal Med [address] [address] 06/29/2022 00:00:00 06/29/2022 12:42:06 [id number] Tenzin Horton MD [facility] [address] [address] 08/19/2022 00:00:00 08/19/2022 12:24:58 [id number] Juan Lopez MD [facility] [address] [place] [address] 02/22/2023 11:06:30 02/22/2023 11:38:41 Cerebrovascular accident 522406155 I63.9 on meds, no recurrence Chronic ob structive pulmonary disease 97556481 J44.9 better with inhalers Low back pain 093786540 M54.50 meds help Essential hypertension 44966619 I10 under control Anemia 828893952 D64.9 improved, labs next time Arthritis 8427421 M19.90 meds help prn Smoker 85863727 F17.200 advised to quit Multiple n odules of lung 406516523 R91.8 needs LDCT every year, Chronic depression 54254 0009 F34.1 no meds needed Adult heal th examination 272573971 Z00.00 Screening for disorder 258783255 Z13.9 Screening for malignant neoplasm of colon 724549053 Z12.11 [id number] Tenzin Horton MD [facility] [place] [address] [facility] [address] [place] [address] 05/31/2023 11:46:55 06/01/2023 08:49:18 Chronic obstructive pulmonary disease 94206427 J44.9 Multiple n odules of lung 691130927 R91.8 Smoker 89161581 F17.218 F17.219 Z87.695 [id number] Juan Lopez MD S[facility] [place] Internal Med [place] [id number] [facility]. [place] [address] 06/24/2023 10:59:44 06/24/2023 11:49:26 Essential hypertension 15464778 I10 under control Chronic ob structive pulmonary disease 45667871 J44.9 inhalers HELP Cerebrovas cular accident 118622885 I63.9 on meds, no recurrence Low back pain 159861124 M54.50 meds help Anemia 264725475 D64.9 improved, Arthritis 4567680 M19.90 meds help prn Smoker 32261251 F17.200 advised to quit Multiple n odules of lung 859753389 R91.8 needs LDCT every year, Chronic depression 48828 0009 F34.1 no meds needed Adult heal th examination 918389881 Z00.00 Colonoscop y 2016 nl, 10yrsPSA, 07/10Pneum ovax 04/2015Pre vnar 12/2016, 07/2019FLU - 06/24/2023 COVID- 12/18/20, 01/08/21 Administra tion of influenza vaccine 44271499 Z23 Screening for malignant neoplasm of prostate 408663615 Z12.5 Carotid bruit 738968259 R09.89 Candidiasis of skin 4988 3006 B37.2 [id number] Juan Lopez MD [facility] Internal Med [facility] [address] [facility] [place] [address] 04/10/2024 15:08:10 04/10/2024 16:42:22 Essential hypertension 34567607 I10 under control Chronic ob structive pulmonary disease 28028363 J44.9 better with inhalers Cerebrovas cular accident 296032041 I63.9 on meds, no recurrence Low back pain 333600972 M54.50 meds help Arthritis 1818402 M19.90 meds help prn Smoker 38730029 F17.200 advised to quit , has cut down Multiple n odules of lung 834276086 R91.8 needs LDCT every year, Chronic depression 68188 0009 F34.1 no meds needed Adult heal th examination 966854550 Z00.00 Colonoscop y 2016 nl, 10yrsP, 07/11Pneum ovax 04/2015Pre vnar 12/2016, 07/2019FLU - 06/24/2023 COVID- 12/18/20, 01/08/21 Screening for disorder 890213866 Z13.9 Coronary arteriosclerosis 27867271 I25.10 on meds Peripheral vascular disease 550669577 I73.9 symptoms are better Carotid ar austen stenosis 84163405 I65.29 on plavix [id number] Tenzin Horton MD [facility] Pulmon[facility] [address] [place] [address] 2024 14:55:06 06/14/2024 14:58:32 Chronic obstructive pulmonary disease 14717960 J44.9 Multiple n odules of lung 833707200 R91.8 Smoker 79337680 F17.218 F17.219 Z87.361 [id number] Juan Lopez MD [facility] Internal Med [facility] [address] [facility] [place] [address] 08/08/2024 14:51:39 08/08/2024 15:39:00 Essential hypertension 73590700 I10 under control Chronic ob structive pulmonary disease 39831874 J44.9 under control Cerebrovas cular accident 891444497 I63.9 on meds, no recurrence Low back pain 517347418 M54.50 meds help Arthritis 3189851 M19.90 meds help prn Smoker 94839948 F17.200 advised to quit , has cut down Multiple n odules of lung 310893718 R91.8 needs LDCT every year, Chronic depression 06992 0009 F34.1 no meds needed Adult heal th examination 929312845 Z00.00 Colonoscop y 2015 nl, 10yrsP, 07/11Pneum ovax 04/2015Pre vnar 12/2016, 07/2019FLU - 08/06/2024 (wa;greennabil )COVID- 12/18/20, 01/08/21 Coronary arteriosclerosis 66642717 I25.10 on meds Peripheral vascular disease 712983263 I73.9 symptoms are better Carotid ar austen stenosis 23982048 I65.29 on plavix Screening for malignant neoplasm of prostate 388933069 Z12.5 [id number] Juan Lopez MD [facility] [address] [place] [address] 12/06/2024 14:21:26 12/06/2024 15:13:07 Essential hypertension 60509544 I10 under control Chronic ob structive pulmonary disease 14734821 J44.9 under control Cerebrovas cular accident 191851543 I63.9 on meds, no recurrence Low back pain 399547522 M54.50 tylenol Arthritis 7544441 M19.90 tylenol Smoker 90272907 F17.200 advised to quit , has cut down Multiple n odules of lung 156196010 R91.8 needs LDCT every year, Chronic depression 67518 0009 F34.1 no meds needed Adult heal th examination 446636969 Z00.00 Colonoscop y 2015 nl, 10yrsP, 08/14/24Pn eumovax 04/2015Pre vnar 12/2016, 07/2019FLU - 08/06/2024 (darielapril )COVID- 12/18/20, 01/08/21 Coronary arteriosclerosis 93951134 I25.10 on meds Peripheral vascular disease 183758994 I73.9 symptoms are better Carotid ar austen stenosis 94207966 I65.29 on plavix Kidney disease 81521646 N08 Anemia 020643647 D64.9 Health Concerns Section Related Observation LastModified by Organization Detai ls LastModified Time None Recorded Concern Status LastModified by Organization Details LastModified Time None Recorded Advance Directives Directive Y: Payers Insurance Date Sequence Insurance Name Policy Number Policy Guajardo Covered Member ID Guajardo Member ID Guarantor Name 12/12/2024 1 [facility] - MEDICARE COMPLETE - POS (MEDICARE REPLACEMENT HMO) [id number] Greg Srivastava [id number] Greg Srivastava Notes Date Note Type Note [...] has taken iron in the past Juan Lopez MD [address] [facility], [place], [address], [place] [facility] [employer] 06/24/2023 13:23:42 04/10/2024 text/html Doing fine, comp [...] stenosis- 70%, seen cardiology, [place] 07/11 Juan Lopez MD [address] [place] [address] [address], [place], [address], [facility] [employer] 04/11/2024 08:35:35 2024 text/html Primary care/Referring provider: Juan Lopez MD Patient is here to go over his PFT and chest CT as part of his COPD and pulm nodules management.Initial development of shortness of breath: 2014Duration of shortness of breath: 10 yearsCondition of shortness of breath: stableTiming of shortness of breath: noneFrequency: up to 2 times a dayLimits activities: yesAggravating factors: walking one mileAlleviating factors: restModified [employer] [place] ([employer]) Dyspnea Scale - Grade 1Grade 0 [...] no chance of dozing. Tenzin Horton MD [address] [place] [address], [facility] [address], [place], [address], [place] - [facility] [employer] [facility] 2024 15:56:06 08/08/2024 text/html Doing fine, comp liant to medications, no side affects, here for follow up.PT IS NOT FASTING ( [facility] ) CAD- s/p card cath, [...] stenosis- 70%, seen cardiology, Dopplers 07/11 Juan Lopez MD [address] [employer], [address], [place], [address], [employer] 08/08/2024 15:37:17 12/06/2024 text/html Doing fine, comp liant to medications, no side affects, here for follow up.PT IS FASTING ( [facility] ) CAD- s/p card cath, [...] 05/12seen puljustino burgess def- on otcOsteoarthritis-med s helps, mostly hands, no pain in other jointsMeds- NOT on Diclofenac due to kidney diseaseh/o Anemia- improved has taken iron in the past Carotid artery stenosis- 70%, seen cardiology, Dopplers 07/11 Juan Lopez MD [address] [employer], [place], [address], [employer] 12/06/2024 14:58:37
--- OUTSIDE RECORDS SUMMARY | 2025-04-08 08:38 | XMS_ITS | Patient Health Record ---
Author Organization [facility] Office Address [address] [place] [address] Care Team Providers Care Axle Polisher Name Role Phone Boa Collier Unavailable [phone] JUAN GORE Unavailable Unavailable Reason For Referral No Information Medications Medication SIG (Take, Route, Frequency, Duration) Notes Start Date End Date Status Calcitriol 0.25 MCG 1 capsule Orally Onc e a day; Duration: 90 day(s) 02/01/2025 12/03/2025 Active Losartan Potassium 50 MG 1 tablet Orally Once a day; Duration: 90 02/01/2025 Active Problems Problem Type SNOMED Code ICD Code Onset Dates Problem Status W/U Status Risk Notes Problem Diabetic renal disease (571972626) Type 2 diabetes mellitus with diabetic chronic kidney disease (E11.22) Active confirmed Problem Hyperlipidemia (10908987) Hyperlipidemia, unspecified (E78.5) Active confirmed Problem Cerebral infarction (385592510) Cerebral infarction, unspecified (I63.9) Active confirmed Problem Peripheral vascular disease (205278903) Peripheral vascular disease, unspecified (I73.9) Active confirmed Problem Renal osteodystrophy (16028235) Renal osteodystrophy (N25.0) Active confirmed Problem Secondary hyperparathyroidism of renal origin (94782380) Secondary hyperparathyroidism of renal origin (N25.81) Active confirmed Problem Proteinuria (37060967) Proteinuria, unspecified (R80.9) Active confirmed Problem Tobacco use (977838155) Tobacco use (Z72.0) Active confirmed Problem Essential hypertension (72924838) Essential hypertension (I10) Active confirmed Problem Chronic kidney disease stage 3B (disorder) (237199843) Chronic kidney disease, stage 3b (N18.32) Active confirmed Encounters Encounter Location Date Provider Diagnosis [facility] [address] [facility] [address] [place] [address] 12/12/2024 Bao Collier Chronic kidney disea se, stage 3b N18.32 ; Essential hypertension I10 ; Renal osteodystrophy N25.0 ; Secondary hyperparathyroidism of renal origin N25.81 ; Type 2 diabetes mellitus with diabetic chronic kidney disease E11.22 ; Hyperlipidemia, unspecified E78.5 ; Tobacco use Z72.0 ; Cerebral infarction, unspecified I63.9 and Peripheral vascular disease, unspecified I73.9 [facility] [address] [place] [address] 02/01/2025 Bao Collier Chronic kidney disea se, stage 3b N18.32 ; Essential hypertension I10 ; Renal osteodystrophy N25.0 ; Secondary hyperparathyroidism of renal origin N25.81 ; Type 2 diabetes mellitus with diabetic chronic kidney disease E11.22 ; Hyperlipidemia, unspecified E78.5 ; Tobacco use Z72.0 ; Cerebral infarction, unspecified I63.9 ; Peripheral vascular disease, unspecified I73.9 and Proteinuria, unspecified R80.9 [facility] [address] [place] [address] 03/08/2025 Bao Collier Chronic kidney disea se, stage 3b N18.32 ; Essential hypertension I10 ; Renal osteodystrophy N25.0 ; Secondary hyperparathyroidism of renal origin N25.81 ; Type 2 diabetes mellitus with diabetic chronic kidney disease E11.22 ; Hyperlipidemia, unspecified E78.5 ; Tobacco use Z72.0 ; Cerebral infarction, unspecified I63.9 ; Peripheral vascular disease, unspecified I73.9 and Proteinuria, unspecified R80.9 [facility] [address] [place] [address] 02/01/2025 Bao Collier [facility] [address] [place] [address] 03/08/2025 Bao Collier Assessments Encounter Date Diagnosis (ICD Code) Assessment Notes Treatment Notes Treatment Clinical Notes Section Notes 12/12/2024 Chronic kidney disea se, stage 3b (ICD-10 - N18.32) 02/01/2025 Chronic kidney disea se, stage 3b (ICD-10 - N18.32) 03/08/2025 Chronic kidney disea se, stage 3b (ICD-10 - N18.32) 03/08/2025 Essential hypertensi on (ICD-10 - I10) 02/01/2025 Essential hypertensi on (ICD-10 - I10) 12/12/2024 Essential hypertensi on (ICD-10 - I10) 03/08/2025 Renal osteodystrophy (ICD-10 - N25.0) 12/12/2024 Renal osteodystrophy (ICD-10 - N25.0) 02/01/2025 Renal osteodystrophy (ICD-10 - N25.0) 02/01/2025 Secondary hyperparathyroidism of renal origin (ICD-10 - N25.81) 12/12/2024 Secondary hyperparathyroidism of renal origin (ICD-10 - N25.81) 03/08/2025 Secondary hyperparathyroidism of renal origin (ICD-10 - N25.81) 03/08/2025 Type 2 diabetes mellitus with diabetic chronic kidney disease (ICD-10 - E11.22) 02/01/2025 Type 2 diabetes mellitus with diabetic chronic kidney disease (ICD-10 - E11.22) 12/12/2024 Type 2 diabetes mellitus with diabetic chronic kidney disease (ICD-10 - E11.22) 12/12/2024 Hyperlipidemia, unspecified (ICD-10 - E78.5) 02/01/2025 Hyperlipidemia, unspecified (ICD-10 - E78.5) 03/08/2025 Hyperlipidemia, unspecified (ICD-10 - E78.5) 12/12/2024 Tobacco use (ICD-10 - Z72.0) 02/01/2025 Tobacco use (ICD-10 - Z72.0) 03/08/2025 Tobacco use (ICD-10 - Z72.0) 03/08/2025 Cerebral infarction, unspecified (ICD-10 - I63.9) 02/01/2025 Cerebral infarction, unspecified (ICD-10 - I63.9) 12/12/2024 Cerebral infarction, unspecified (ICD-10 - I63.9) 12/12/2024 Peripheral vascular disease, unspecified (ICD-10 - I73.9) 02/01/2025 Peripheral vascular disease, unspecified (ICD-10 - I73.9) 03/08/2025 Peripheral vascular disease, unspecified (ICD-10 - I73.9) 02/01/2025 Proteinuria, unspecified (ICD-10 - R80.9) 03/08/2025 Proteinuria, unspecified (ICD-10 - R80.9) Plan Of Treatment Next Appt Details Provider Name:Bao Collier , 05/03/2025 02:45:00 PM, [address], [facility] [address], [place], [address],
--- OUTSIDE RECORDS SUMMARY | 2025-04-08 08:38 | XMS_ITS ---
Author Organization [facility] Address [address] [place] [address] Care Team Providers Care Band Top Maker Name Role Phone Nando Bao Unavailable [phone] JUAN GORE Unavailable Unavailable Problems Problem Type SNOMED Code ICD Code Onset Dates Problem Status W/U Status Risk Notes Problem Proteinuria (46397619) Proteinuria, unspecified (R80.9) Active confirmed Encounters Encounter Location Date Provider Diagnosis [place] [address] [facility] [address] [place] [address] 02/01/2025 Bao Collier Chronic kidney disea se, [...] Name:Bao Nando , 05/03/2025 02:45:00 PM, [address], [facility] [address], [place], [place], [facility], Progress Notes * Greg WOOTEN EDOB:1955 (69 yo M)Acc No.[id number]:02/01/2025 Progress Notes Patient: Greg PABON Provider: Alexander BAILON MD, F.A.C.P, F.A.S.N. :1955 A ge:69 Y S ex:Male Date:02/01/2025 Address:[address] [place], [place] [address] [address] Subjective: * Chief Complaints: * * Medical [...] Treatment: * Billing Information: * Visit Code: 78669 Office Visit, Est Pt., Level 4. * Procedure Codes: * Electronic signature of Anais Collier MD on 04/08/2025 at 08:38 AM CDT Sign off status: Pending * Provider: Alexander BAILON MD, Rachel.Gerardo.C.P, F.A.S.N. Date: 0 02/01/2025 Generated for Printing/Faxing/eTransmitting on: 0 04/08/2025 08:38 AM CDT
[2025-04-08 09:58] LABS: Add Urine Microscopic? YES; Appearance Urine Clear (Clear); Glucose Urine UA Negative (Negative); Leukocyte Esterase Ur Negative LEU/UL (Negative); Nitrate Urine Negative (Negative); Non Pathogenic Casts 0-2; Specific Grav Ur 1.016 (1.001-1.035)
[2025-04-08 10:07] LABS: Hematocrit 30.4 % (42.0-52.0); Hemoglobin 9.6 g/dL (14.0-18.0); Immature Granulocyte Percent A 0.5 % (0-0.5); Lymphocytes Absolute Auto 1.15 K/mm3 (0.9-3.2); Mean Corpuscular HGB Conc 31.6 g/dl (32-36); Mean Corpuscular Hemoglobin 30.7 pg (26-34); Mean Corpuscular Volume 97.1 fl (80-100); Nucleated Red Blood Cells Absolute Auto 0.000 K/mm3 (0.0-0.012); Nucleated Red Blood Cells Perc 0.0 % (0.0-0.2); Platelet Count Result 249 k/mm3 (150-375); Red Blood Count 3.13 M/mm3 (4.6-6.20); White Blood Count 7.9 K/mm3 (4.5-10.0)
[2025-04-08 10:14] LABS: Hemoglobin A1C 5.6 % (<5.7)
[2025-04-08 10:15] LABS: MALB Creatinine Ratio 92.7 mg/g (0-30)
[2025-04-08 10:18] LABS: Alanine Aminotransferase 18 U/L (6-50); Albumin Level 3.6 g/dL (3.5-5.1); Alkaline Phosphatase 117 U/L (38-126); Anion Gap 7 mmol/L (4-12); Aspartate Amino Transferase 32 U/L (17-59); Bilirubin,Total 0.2 mg/dL (0.2-1.3); Blood Urea Nitrogen 34 mg/dL (9-20); Calcium 11.4 mg/dL (8.4-10.2); Carbon Dioxide 23 mmol/L (22-30); Chloride 110 mmol/L (98-107); Estimated Glomerular Filt Rate 33; Glucose 105 mg/dL (65-110); Potassium 4.5 mmol/L (3.4-5.0); Sodium 140 mmol/L (137-145); Total Protein 7.1 g/dL (6.3-8.2); Uric Acid 5.9 mg/dL (3.5-8.5)
[2025-04-08 10:50] LABS: Prostate Specific Antigen 0.2 ng/mL (< OR = 4.0); Thyroid Stimulating Hormone 1.130 uIU/mL (0.465-4.680)
[2025-04-08 10:53] LABS: Parathyroid Intact < 14.5 pg/mL (14.5-75.2)
== END 2025-04-08 08:33 | disposition home or self-care (01) ==
LOC: ANHLAB 08:35
PROVIDERS: PCP Internal Medicine; Visit Provider Specialist
DX: E21.3 Hyperparathyroidism, unspecified (principal); E55.9 Vitamin D deficiency, unspecified; E78.41 Elevated Lipoprotein(a); E87.20 Acidosis, unspecified; N18.4 Chronic kidney disease, stage 4 (severe); N39.0 Urinary tract infection, site not specified; R35.0 Frequency of micturition; R60.9 Edema, unspecified; R73.09 Other abnormal glucose; R82.90 Unspecified abnormal findings in urine; Z79.4 Long term (current) use of insulin; I12.9 Hypertensive chronic kidney disease with stage 1 through stage 4 chronic kidney disease, or unspecified chronic kidney disease
CPT/HCPCS: 36415; 80053; 81001; 82043; 82306; 83036; 83970; 84153; 84443; 84550; 85025

== ENCOUNTER 2025-06-12 12:26 | Outpatient (CLI) | payer MEDICARE, SELFPAY ==
--- OUTSIDE RECORDS SUMMARY | 2024-12-12 09:15 | XMS_ITS ---
Author Organization [facility] Address [address] [place] [address] Care Team Providers Care Can Worker Name Role Phone Nando Bao Unavailable [phone] JUAN GORE Unavailable Unavailable Problems Problem Type SNOMED Code ICD Code Onset Dates Problem Status W/U Status Risk Notes Problem Chronic kidney disease stage 3B (disorder) (805052728) Chronic kidney disease, stage 3b (N18.32) Active confirmed Problem Essential hypertension (01396273) Essential hypertension (I10) Active confirmed Problem Renal osteodystrophy (22702860) Renal osteodystrophy (N25.0) Active confirmed Problem Secondary hyperparathyroidism of renal origin (55164841) Secondary hyperparathyroidism of renal origin (N25.81) Active confirmed Problem Diabetic renal disease (460593427) Type 2 diabetes mellitus with diabetic chronic kidney disease (E11.22) Active confirmed Problem Hyperlipidemia (31451782) Hyperlipidemia, unspecified (E78.5) Active confirmed Problem Tobacco use (799790344) Tobacco use (Z72.0) Active confirmed Problem Cerebral infarction (606313617) Cerebral infarction, unspecified (I63.9) Active confirmed Problem Peripheral vascular disease (087989732) Peripheral vascular disease, unspecified (I73.9) Active confirmed Encounters Encounter Location Date Provider Diagnosis [facility] [address] [place] [address] 12/12/2024 Bao Collier Chronic kidney disea se, [...] Information Progress Notes * Greg WOOTEN EDOB:1955 (69 yo M)Acc No.[id number]:12/12/2024 Progress Notes Patient: Greg PABON Provider: Alexander BAILON MD, F.A.C.P, F.A.S.N. :1955 A ge:69 Y S ex:Male Date:12/12/2024 Address:[address] [place] [address] Subjective: * Chief Complaints: * * Medical [...] Treatment: * Billing Information: * Visit Code: 63232 Office Visit, New Pt., Level 5. * Procedure Codes: * Electronic signature of Anais Collier MD on 06/12/2025 at 12:39 PM CDT Sign off status: Pending * Provider: Alexander BAILON MD, F.A.C.P, F.A.S.N. Date: 0 12/12/2024 Generated for Printing/Faxing/eTransmitting on: 0 06/12/2025 12:39 PM CDT
--- OUTSIDE RECORDS SUMMARY | 2025-01-02 09:30 | XMS_ITS ---
Author Organization [facility] Office Address [address] [facility] [address] [facility] [address] [place] [address] Care Team Providers Care Executive Cyber Leader Name Role Phone Bao Collier Unavailable [phone] JUAN GORE Unavailable Unavailable Encounters Encounter Location Date Provider Diagnosis [place] [facility] [address] [facility] [address] [place] [address] 01/02/2025 Bao Collier Plan Of Treatment No Information Progress Notes * Greg WOOTEN EDOB:1955 (69 yo M)Acc No.[id number]:01/02/2025 Progress Notes Patient: Greg PABON Provider: Alexander BAILON MD, Rachel.Gerardo.C.P, F.A.S.N. :1955 A ge:69 Y S ex:Male Date:01/02/2025 Address:[address] [place], [place] [address] [address] Subjective: * Chief Complaints: * * Medical History: Objective: * Vitals: Assessment: Plan: * Treatment: * Billing Information: * Visit Code: * Procedure Codes: * Electronic signature of Anais Collier MD on 06/12/2025 at 12:38 PM CDT Sign off status: Pending * Provider: Alexander BAILON MD, F.Gerardo.C.P, F.A.S.N. Date: 01/02/2025 Generated for Printing/Faxing/eTransmitting on: 06/12/2025 12:38 PM CDT
--- OUTSIDE RECORDS SUMMARY | 2025-02-01 09:00 | XMS_ITS ---
Author Organization [facility] Address [address] [place] [address] Care Team Providers Care B And B Gang Worker Name Role Phone Nando Bao Unavailable [phone] JUAN GORE Unavailable Unavailable Problems Problem Type SNOMED Code ICD Code Onset Dates Problem Status W/U Status Risk Notes Problem Proteinuria (38018660) Proteinuria, unspecified (R80.9) Active confirmed Encounters Encounter Location Date Provider Diagnosis [place] [facility] [address] [facility] [place] [address] 02/01/2025 Bao Collier Chronic kidney disea se, [...] * Greg WOOTEN EDOB:1955 (69 yo M)Acc No.[id number]:02/01/2025 Progress Notes Patient: Greg PABON Provider: Alexander BAILON MD, F.A.C.P, F.A.S.N. :1955 A ge:69 Y S ex:Male Date:02/01/2025 Address:[address] [place], [place] [address] [address] Subjective: * Chief Complaints: * * Medical [...] Treatment: * Billing Information: * Visit Code: 68178 Office Visit, Est Pt., Level 4. * Procedure Codes: * Electronic signature of Anais Collier MD on 06/12/2025 at 12:39 PM CDT Sign off status: Pending * Provider: Alexander BAILON MD, F.A.C.P, F.A.S.N. Date: 0 02/01/2025 Generated for Printing/Faxing/eTransmitting on: 0 06/12/2025 12:39 PM CDT
--- OUTSIDE RECORDS SUMMARY | 2025-03-08 10:15 | XMS_ITS ---
Author Organization [facility] Address [address] [facility] [address] [facility] [address] [place] [address] Care Team Providers Care Director Of Residential Services Name Role Phone Nando Bao Unavailable [phone] JUAN GORE Unavailable Unavailable Encounters Encounter Location Date Provider Diagnosis [place] [facility] [address] [facility] 15 [place] [address] 03/08/2025 Bao Collier Chronic kidney disea se, [...] * Greg WOOTEN EDOB:1955 (69 yo M)Acc No.[id number]:03/08/2025 Progress Notes Patient: Greg PABON Provider: Alexander BAILON MD, F.Gerardo.Merna.P, F.A.S.N. :1955 A ge:69 Y S ex:Male Date:03/08/2025 Address:[address] [place] [address] Subjective: * Chief Complaints: * * Medical [...] Treatment: * Billing Information: * Visit Code: 11846 Office Visit, Est Pt., Level 4. * Procedure Codes: * Electronic signature of Anais Collier MD on 06/12/2025 at 12:39 PM CDT Sign off status: Pending * Provider: Alexander BAILON MD, F.Gerardo.Merna.P, F.A.S.N. Date: 0 03/08/2025 Generated for Printing/Faxing/eTransmitting on: 0 06/12/2025 12:39 PM CDT
--- OUTSIDE RECORDS SUMMARY | 2025-05-03 09:45 | XMS_ITS ---
Author Organization [facility] Office Address [address] [facility] 61 [facility] [address] [place] [address] Care Team Providers Care Clinical Programmer Name Role Phone Bao Collier Unavailable [phone] JUAN GORE Unavailable Unavailable Encounters Encounter Location Date Provider Diagnosis [place] [facility] [address] [place] [address] 05/03/2025 Bao Collier Plan Of Treatment No Information Progress Notes * Greg WOOTEN EDOB:1955 (69 yo M)Acc No.[id number]:05/03/2025 Progress Notes Patient: Greg PABON Provider: Alexander BAILON MD, Rachel.Gerardo.C.P, F.A.S.N. :1955 A ge:69 Y S ex:Male Date:05/03/2025 Address:[facility] [place] [address] Subjective: * Chief Complaints: Objective: Assessment: Plan: * Billing Information: * Visit Code: * Procedure Codes: * Electronic signature of Anais Collier MD on 06/12/2025 at 12:39 PM CDT Sign off status: Pending * Provider: Alexander BAILON MD, F.Gerardo.C.P, F.A.S.N. Date: 0 05/03/2025 Generated for Printing/Faxing/eTransmitting on: 06/12/2025 12:39 PM CDT
--- OUTSIDE RECORDS SUMMARY | 2025-06-12 12:39 | XMS_ITS | Patient Health Record ---
Author Organization [facility] Office Address [address] [place] [address] Care Team Providers Care Certified Composites Technician Name Role Phone Bao Collier Unavailable [phone] JUAN GORE Unavailable Unavailable Reason For Referral [...] Status Risk Notes Problem Diabetic renal disease (300927871) Type 2 diabetes mellitus with diabetic chronic kidney disease (E11.22) Active confirmed Problem Hyperlipidemia (66326737) Hyperlipidemia, unspecified (E78.5) Active confirmed Problem Cerebral infarction (775867890) Cerebral infarction, unspecified (I63.9) Active confirmed Problem Peripheral vascular disease (722903722) Peripheral vascular disease, unspecified (I73.9) Active confirmed Problem Renal osteodystrophy (26019770) Renal osteodystrophy (N25.0) Active confirmed Problem Secondary hyperparathyroidism of renal origin (65780022) Secondary hyperparathyroidism of renal origin (N25.81) Active confirmed Problem Proteinuria (87742519) Proteinuria, unspecified (R80.9) Active confirmed Problem Tobacco use (671929500) Tobacco use (Z72.0) Active confirmed Problem Essential hypertension (02422932) Essential hypertension (I10) Active confirmed Problem Chronic kidney disease stage 3B (disorder) (145077873) Chronic kidney disease, stage 3b (N18.32) Active confirmed Encounters Encounter Location Date Provider Diagnosis [place] [facility] [address] [facility] 15 [place] [address] 12/12/2024 Bao Collier Chronic kidney disea se, stage 3b N18.32 ; Essential hypertension I10 ; Renal osteodystrophy N25.0 ; Secondary hyperparathyroidism of renal origin N25.81 ; Type 2 diabetes mellitus with diabetic chronic kidney disease E11.22 ; Hyperlipidemia, unspecified E78.5 ; Tobacco use Z72.0 ; Cerebral infarction, unspecified I63.9 and Peripheral vascular disease, unspecified I73.9 [place] [facility] [address] [place] [address] 02/01/2025 Bao Collier Chronic kidney disea se, stage 3b N18.32 ; Essential hypertension I10 ; Renal osteodystrophy N25.0 ; Secondary hyperparathyroidism of renal origin N25.81 ; Type 2 diabetes mellitus with diabetic chronic kidney disease E11.22 ; Hyperlipidemia, unspecified E78.5 ; Tobacco use Z72.0 ; Cerebral infarction, unspecified I63.9 ; Peripheral vascular disease, unspecified I73.9 and Proteinuria, unspecified R80.9 [facility] [address] [place] [address] 03/08/2025 Bao Collier Chronic kidney disea se, stage 3b N18.32 ; Essential hypertension I10 ; Renal osteodystrophy N25.0 ; Secondary hyperparathyroidism of renal origin N25.81 ; Type 2 diabetes mellitus with diabetic chronic kidney disease E11.22 ; Hyperlipidemia, unspecified E78.5 ; Tobacco use Z72.0 ; Cerebral infarction, unspecified I63.9 ; Peripheral vascular disease, unspecified I73.9 and Proteinuria, unspecified R80.9 [place] [facility] [address] [place] [address] 05/03/2025 Bao Collier [place] [facility] [address] [place] [address] 02/01/2025 Bao Collier [place] [facility] [address] [place] [address] 03/08/2025 Bao Collier Assessments Encounter Date Diagnosis [...]
--- NOTE | 2025-06-12 15:16 | WPDPFTINT ---
PFT Procedure Performed PFT Procedure Performed Spirometry with Pre/Post Bronchodilator Plethysmography (Lung Vol) Diffusing Cap (DLCO) Flow Vol Loop PFT Interpretation This is a pulmonary function test with pre and post-bronchodilator spirometry, plethysmography and diffusing capacity. The test was performed and results interpreted in accordance with the 2019 and 2005 ATS/ERS Task Force guidelines respectively using the Global Lung Function Initiative-2012 reference equations. Patient demonstrated good effort and cooperation. Reproducibility criteria were met. The quality of the pre bronchodilator spirometry maneuver was Grade B and post bronchodilator spirometry maneuver was Grade B. Of note, patient had difficulty holding exhalation for spirometry. Findings: Spirometry: There is decreased maximal expiratory airflow at all lung volumes with a concave expiratory flow tracing. The contour of the inspiratory flow tracing is normal in 1 effort and was truncated in the remaining 7 efforts. The pre bronchodilator FVC is 3.82 L, 104% predicted. The pre bronchodilator FEV1 is 2.19 L, 78% predicted. The pre bronchodilator FEV1: FVC ratio is 57%. The post bronchodilator FVC is 3.62 L, representing a 5% decrease. The post bronchodilator FEV1 is 2.23 L, representing a 1% increase. The post bronchodilator FEV1: FVC ratio is 61%. Plethysmography: The total lung capacity is 8.57 L, 137% predicted. The functional residual capacity is 6.11 L, 186% predicted. The residual volume is 4.75 L, 210% predicted. The residual volume: Total lung capacity ratio is 55%. Diffusing capacity: The diffusing capacity unadjusted for hemoglobin and carboxyhemoglobin is 8.4, 35% predicted. The diffusing capacity adjusted for alveolar volume is 1.53, 37% predicted. Impression: There is a mild obstructive abnormality with a normal FEV1. There is no significant improvement after inhaling a single dose of albuterol. The increase in residual volume to total lung volume ratio is consistent with hyperinflation from an obstructive abnormality. The diffusing capacity unadjusted for hemoglobin and carboxyhemoglobin is severely decreased and remains severely decreased when adjusted for alveolar volume. There are no prior studies for comparison
== END 2025-06-12 12:27 | disposition home or self-care (01) ==
PROVIDERS: PCP Internal Medicine; Visit Provider Internal Medicine Pulmonary Disease
DX: R94.2 Abnormal results of pulmonary function studies (principal); J44.9 Chronic obstructive pulmonary disease, unspecified
CPT/HCPCS: 94060; 94726; 94729

== ENCOUNTER 2025-06-19 14:40 | Outpatient (CLI) | payer MEDICARE, SELFPAY ==
--- OUTSIDE RECORDS SUMMARY | 2008-12-13 04:45 | XMS_ITS | Continuity of Care Document ---
Author Organization [facility] Address [address] [place] [address] Phone Care Team Providers Care Crossbar Frame Wirer Name Role Phone Usha Aguilar DO Unavailable Unavailable Procedures Procedure Date Physical Exam Respirator Questionnaire Form Review Nov Physical Exam Advance Directives Directive Yes / No Effective Date File Name No Information Encounters Encounter Description Practice Location Reason(s) For Visit Diagnoses Date Provider Providers Copied on Encounter [facility], [address] [place] [address], [id number], tel:[phone] [facility] No Information 9 Lauren Kerr. [address] [place] [address], [place] [address], [place], [place], [id number] , . tel:[phone] Family History Family Member Type Diagnosis Age At Onset No Information Payers Payer name Insurance type Covered alliance party ID Authorgatito romerojonathan(s) [id number] Social History Type Description Quantity Date Captured Comments Sex Male Smoking Status No Information Chief Complaint And Reason For Visit No Information Reason For Referral Reason For Referral No Information History Of Present Illness Encounter Date Complaint History Of Prese nt Illness No Information Functional Status Date Functional Assessmen t No Information Instructions Date Instruction Additional Infor mation No Information Assessments Type Assessment Date No Information Patient Care Teams Name Effective Dates (start - stop) Status Members No Information
--- OUTSIDE RECORDS SUMMARY | 2010-05-06 04:30 | XMS_ITS | Continuity of Care Document ---
Author Organization [facility] Address [address] [place] [address] Phone Care Team Providers Care Armed Custom Protection Officer Name Role Phone Juarez OD, Celio Unavailable Unavailable Procedures Procedure Date Office/outpatient Visit, Est Office/outpatient Visit, Est Eye Exam, New Patient Advance Directives Directive Yes / No Effective Date File Name No Information Encounters Encounter Description Practice Location Reason(s) For Visit Diagnoses Date Provider Providers Copied on Encounter Office/outpat ient Visit, [facility], [address] [place] [address] [address], [place], [place], [id number], tel:[phone] SEC [facility][note 3] No Information 8-201 0 Juarez OD Celio. [address] [facility] [address] , [address], [place], [address], [place]. tel:[phone] Office/outpat ient Visit, [facility], [address] [place] [address] [address], [place], [place], [id number], [place] tel:[phone] [facility][note 3] No Information 4-201 0 Juarez OD Celio. [address] [facility] [address], [place], [address], [place]. tel:[phone] [facility], [address] [place] [address] [address], [place], [place], [id number], tel:[phone] [facility][note 3] No Information 3-201 0 Juarez OD Celio. [address] , [address], [place], [address], [place]. tel:[phone] Referring Provider: Dario Lopez [address], [place], [address]. tel:[phone] Family History Family Member Type Diagnosis Age At Onset No Information Payers Payer name Insurance type Covered alliance party ID Authorlorettabeny medina(s) [facility] Commercial CI [id number] Social History Type Description Quantity Date Captured [...]
--- NOTE | ~2025-06-19 | CT_ITS ---
Exam: CT chest without contrast Clinical History: [Other abnormal finding lung field. ] Comparison: [ None available] Technique: Multiple axial CT images of the chest without with IV contrast. Sagittal and coronal reformatted images were obtained. FINDINGS: Lungs and pleura: [ Biapical scarring, worse on the right. Tracheobronchial tree is patent.] There are a few small scattered calcified granulomas. There are several reticular and tree-in-bud opacities in the lingula and left lower lobe. There is a 4.4 x 3.2 x 4.4 cm in the right lower lobe subpleural consolidation which abuts the pleura and has irregular margins. There are several small to moderate-sized patchy and reticulonodular and tree-in-bud opacities adjacent to the masslike consolidation. There are a few tiny tree-in-bud and reticulonodular opacities in the right middle lobe, right upper lobe, lingula and left lower lobe. Mediastinum and pulmonary devante: [ No mass or adenopathy.] Several calcified mediastinal and hilar lymph nodes. Axillary/intramammary and supraclavicular: [ No mass or adenopathy.] Heart and great vessels: [ Normal heart size.[ [ Small pericardial effusion.] [ No aneurysm.] Moderate atherosclerotic disease in the thoracic aorta. Chest Wall: [ Unremarkable.] Upper Abdomen: Kidneys are moderately atrophic. Suprarenal abdominal aortic aneurysm which measures 3.4 cm AP x 4.0 cm transverse. Osseous structures: [ No acute fracture or destructive lesion.] [ Multilevel degenerative change in the visualized spine.] Additional findings: [ None of significance.] IMPRESSION: 1. There is a 4.4 x 3.2 x 4.4 cm in the right lower lobe subpleural consolidation which abuts the pleura and has irregular margins. Differential includes focal pneumonia, scarring or malignancy. No comparison studies are available. Correlate clinically. A short-term follow-up chest CT in 1 to 2 weeks following treatment is recommended to assess for interval clearance. If the finding does not resolve, a PET/CT and/or biopsy is recommended. 2. There are several small to moderate-sized patchy, reticulonodular and tree-in-bud opacities adjacent to the masslike consolidation in the right lower lobe. Differential includes but is not limited to an inflammatory/infectious process or malignancy. Attention on follow-up imaging. 3. There are a few tiny tree-in-bud and reticulonodular opacities in the right middle lobe, right upper lobe, lingula and left lower lobe. Attention on follow- up imaging. 4. Suprarenal abdominal aortic aneurysm which measures 3.4 cm AP x 4.0 cm transverse. Reviewed, dictated and finalized at location Q. IMPRESSION: 1. There is a 4.4 x 3.2 x 4.4 cm in the right lower lobe subpleural consolidati on which abuts the pleura and has irregular margins. Differential includes foca l pneumonia, scarring or malignancy. No comparison studies are available. Corre late clinically. A short-term follow-up chest CT in 1 to 2 weeks following álvaro tment is recommended to assess for interval clearance. If the finding does not resolve, a PET/CT and/or biopsy is recommended. 2. There are several small to moderate-sized patchy, reticulonodular and tree-i n-bud opacities adjacent to the masslike consolidation in the right lower lobe. Differential includes but is not limited to an inflammatory/infectious process or malignancy. Attention on follow-up imaging. 3. There are a few tiny tree-in-bud and reticulonodular opacities in the right middle lobe, right upper lobe, lingula and left lower lobe. Attention on follow -up imaging. 4. Suprarenal abdominal aortic aneurysm which measures 3.4 cm AP x 4.0 cm trans verse.
== END 2025-06-19 14:41 | disposition home or self-care (01) ==
PROVIDERS: PCP Internal Medicine; Visit Provider Internal Medicine Pulmonary Disease
DX: R91.8 Other nonspecific abnormal finding of lung field (principal); I71.43 Infrarenal abdominal aortic aneurysm, without rupture
CPT/HCPCS: 71250

== ENCOUNTER 2025-06-21 15:45 | Outpatient (CLI) | payer MEDICARE, SELFPAY ==
--- OUTSIDE RECORDS SUMMARY | 2008-12-13 04:45 | XMS_ITS | Continuity of Care Document ---
Author Organization [facility] Address [address] [place] [address] Phone Care Team Providers Care Photographic Process Screen Maker Name Role Phone Usha Aguilar DO Unavailable Unavailable Procedures Procedure Date Physical Exam Respirator Questionnaire Form Review Nov Physical Exam Advance Directives Directive Yes / No Effective Date File Name No Information Encounters Encounter Description Practice Location Reason(s) For Visit Diagnoses Date Provider Providers Copied on Encounter [facility], [address] [place] [address], [id number], tel:[phone] [facility] No Information 9 Lauren Kerr. [address] [place] [address], [place] [address], [place], [place], [id number] , . tel:[phone] Family History Family Member Type Diagnosis Age At Onset No Information Payers Payer name Insurance type Covered democrat ID Authorgatito romerojonathan(s) [id number] Social History Type Description Quantity Date Captured [...]
--- OUTSIDE RECORDS SUMMARY | 2010-05-06 04:30 | XMS_ITS | Continuity of Care Document ---
Author Organization [facility] Address [address] [place] [address] Phone Care Team Providers Care Cosmetology Teacher Name Role Phone Juarez OD, Celio Unavailable Unavailable Procedures Procedure Date Office/outpatient Visit, Est Office/outpatient Visit, Est Eye Exam, New Patient Advance Directives Directive Yes / No Effective Date File Name No Information Encounters Encounter Description Practice Location Reason(s) For Visit Diagnoses Date Provider Providers Copied on Encounter Office/outpat ient Visit, [facility], [address] [place] [address] [address], [place], [place], [id number], tel:[phone] [facility] No Information 8-201 0 Juarez OD Celio. [address], [place], [address], [place]. tel:[phone] Office/outpat ient Visit, [facility], [address] [place] [address] [address], [place], [place], [id number], [place] tel:[phone] [facility] No Information 4-201 0 Juarez OD Celio. [address] [facility] [address], [address], [place], [address], [place]. tel:[phone] [facility], [address] [place] [address] [address], [place], [place], [id number], tel:[phone] [facility] No Information 3-201 0 Juarez OD Celio. [address] [facility] , [address], [place], [address], [place]. tel:[phone] Referring Provider: Dario Lopez [address], [place], [address]. tel:[phone] Family History Family Member Type Diagnosis Age At Onset No Information Payers Payer name Insurance type Covered republican ID Authorlorettabeny medina(s) [facility] Commercial CI [id number] Social History Type Description Quantity Date Captured [...]
--- OUTSIDE RECORDS SUMMARY | 2024-12-12 09:15 | XMS_ITS ---
Author Organization [facility] Address [address] [place] [address] Care Team Providers Care Whistle Punk Name Role Phone Nando Bao Unavailable [phone] JUAN GORE Unavailable Unavailable Problems Problem Type SNOMED Code ICD Code Onset Dates Problem Status W/U Status Risk Notes Problem Chronic kidney disease stage 3B (disorder) (239399106) Chronic kidney disease, stage 3b (N18.32) Active confirmed Problem Essential hypertension (97864071) Essential hypertension (I10) Active confirmed Problem Renal osteodystrophy (90219799) Renal osteodystrophy (N25.0) Active confirmed Problem Secondary hyperparathyroidism of renal origin (55058091) Secondary hyperparathyroidism of renal origin (N25.81) Active confirmed Problem Diabetic renal disease (386644018) Type 2 diabetes mellitus with diabetic chronic kidney disease (E11.22) Active confirmed Problem Hyperlipidemia (60288891) Hyperlipidemia, unspecified (E78.5) Active confirmed Problem Tobacco use (780193363) Tobacco use (Z72.0) Active confirmed Problem Cerebral infarction (061857087) Cerebral infarction, unspecified (I63.9) Active confirmed Problem Peripheral vascular disease (509347496) Peripheral vascular disease, unspecified (I73.9) Active confirmed Encounters Encounter Location Date Provider Diagnosis [facility] [address] [place] [address] 12/12/2024 Bao Collier Chronic kidney disea se, [...] * Greg WOOTEN EDOB:1955 (70 yo M)Acc No.[id number]:12/12/2024 Progress Notes Patient: Greg PABON Provider: Alexander BAILON MD, F.A.C.P, F.A.S.N. :1955 A ge:69 Y S ex:Male Date:12/12/2024 Address:[address] [place] [address] Subjective: * Chief Complaints: * * Medical [...] Treatment: * Billing Information: * Visit Code: 72480 Office Visit, New Pt., Level 5. * Procedure Codes: * Electronic signature of Anais Collier MD on 06/21/2025 at 03:48 PM CDT Sign off status: Pending * Provider: Alexander BAILON MD, F.A.C.P, F.A.S.N. Date: 0 12/12/2024 Generated for Printing/Faxing/eTransmitting on: 1 03:48 PM CDT
--- OUTSIDE RECORDS SUMMARY | 2025-01-02 09:30 | XMS_ITS ---
Author Organization [facility] Office Address [address] [facility] [address] [facility] [address] [place] [address] Care Team Providers Care Wood Patternmaker Name Role Phone Bao Collier Unavailable [phone] JUAN GORE Unavailable Unavailable Encounters Encounter Location Date Provider Diagnosis [place] Office [address] [facility] [address] [place] [address] 01/02/2025 Bao Collier Plan Of Treatment No Information Progress Notes * Greg WOOTEN EDOB:1955 (70 yo M)Acc No.[id number]:01/02/2025 Progress Notes Patient: Greg PABON Provider: Alexander BAILON MD, Rachel.Gerardo.C.P, F.A.S.N. :1955 A ge:69 Y S ex:Male Date:01/02/2025 Address:[address] [place], [place] [address] [address] Subjective: * Chief Complaints: * * Medical History: Objective: * Vitals: Assessment: Plan: * Treatment: * Billing Information: * Visit Code: * Procedure Codes: * Electronic signature of Anais Collier MD on 06/21/2025 at 03:48 PM CDT Sign off status: Pending * Provider: Alexander BAILON MD, F.Gerardo.C.P, F.A.S.N. Date: 0 01/02/2025 Generated for Printing/Faxing/eTransmitting on: 1 03:48 PM CDT
--- OUTSIDE RECORDS SUMMARY | 2025-02-01 09:00 | XMS_ITS ---
Author Organization [facility] Address [address] [place] [address] Care Team Providers Care Arts Manager Name Role Phone Nando Bao Unavailable [phone] JUAN GORE Unavailable Unavailable Problems Problem Type SNOMED Code ICD Code Onset Dates Problem Status W/U Status Risk Notes Problem Proteinuria (05405854) Proteinuria, unspecified (R80.9) Active confirmed Encounters Encounter Location Date Provider Diagnosis [place] [facility] [address] [facility] [place] [address] 02/01/2025 Bao Collier Chronic kidney disea se, [...] * Greg WOOTEN EDOB:1955 (70 yo M)Acc No.[id number]:02/01/2025 Progress Notes Patient: Greg PABON Provider: Alexander BAILON MD, F.A.C.P, F.A.S.N. :1955 A ge:69 Y S ex:Male Date:02/01/2025 Address:[address] [place], [place] [address] [address] Subjective: * Chief Complaints: * * Medical [...] Treatment: * Billing Information: * Visit Code: 96574 Office Visit, Est Pt., Level 4. * Procedure Codes: * Electronic signature of Anais Collier MD on 06/21/2025 at 03:48 PM CDT Sign off status: Pending * Provider: Alexander BAILON MD, F.A.C.P, F.A.S.N. Date: 0 02/01/2025 Generated for Printing/Faxing/eTransmitting on: 1 03:48 PM CDT
--- OUTSIDE RECORDS SUMMARY | 2025-03-08 10:15 | XMS_ITS ---
Author Organization [facility] Address 1400 [facility] [address] [facility] [address] [place] [address] Care Team Providers Care Nut Sorter Operator Name Role Phone Nando Bao Unavailable [phone] JUAN GORE Unavailable Unavailable Encounters Encounter Location Date Provider Diagnosis [place] [facility] [address] [facility] 15 [place] [address] 03/08/2025 Bao Collier Chronic kidney disea se, [...] * Greg WOOTEN EDOB:1955 (70 yo M)Acc No.[id number]:03/08/2025 Progress Notes Patient: Greg PABON Provider: Alexander BAILON MD, Rachel.Gerardo.Merna.P, F.A.S.N. :1955 A ge:69 Y S ex:Male Date:03/08/2025 Address:[address] [place] [address] Subjective: * Chief Complaints: * * Medical [...] Treatment: * Billing Information: * Visit Code: 58255 Office Visit, Est Pt., Level 4. * Procedure Codes: * Electronic signature of Anais Collier MD on 06/21/2025 at 03:48 PM CDT Sign off status: Pending * Provider: Alexander BAILON MD, F.Gerardo.Merna.P, F.A.S.N. Date: 0 03/08/2025 Generated for Printing/Faxing/eTransmitting on: 1 03:48 PM CDT
--- OUTSIDE RECORDS SUMMARY | 2025-05-03 09:45 | XMS_ITS ---
Author Organization [facility] Office Address [address] [place] [address] Care Team Providers Care Business Initiatives Manager Name Role Phone Bao Collier Unavailable [phone] JUAN GORE Unavailable Unavailable Encounters Encounter Location Date Provider Diagnosis [place] [facility] [address] [place] [address] 05/03/2025 Bao Collier Plan Of Treatment No Information Progress Notes * Greg WOOTEN EDOB:1955 (70 yo M)Acc No.[id number]:05/03/2025 Progress Notes Patient: Greg PABON Provider: Alexander BAILON MD, Rachel.Gerardo.C.P, F.A.S.N. :1955 A ge:69 Y S ex:Male Date:05/03/2025 Address:[facility] [place] [address] Subjective: * Chief Complaints: Objective: Assessment: Plan: * Billing Information: * Visit Code: * Procedure Codes: * Electronic signature of Anais Collier MD on 06/21/2025 at 03:48 PM CDT Sign off status: Pending * Provider: Alexander BAILON MD, F.Gerardo.C.P, F.A.S.N. Date: 0 05/03/2025 Generated for Printing/Faxing/eTransmitting on: 1 03:48 PM CDT
--- NOTE | ~2025-06-21 | US_ITS ---
EXAMINATION: US carotid duplex BI DATE: 06/21/2025 16:50 INDICATION: Carotid artery stenosis. TECHNIQUE: Grayscale, color Doppler, and pulsed Doppler images of the cervical carotid arteries were obtained. The degree of vessel stenosis is placed in one of the following categories: normal, <50%, 50-69%, >=70% but less than near- occlusion, near-occlusion, or total occlusion. Note that percent stenosis relative to normal distal artery lumen diameter is indirectly measured from velocity measurements as described by Jacob, et al. Radiology 2003; 229:340-346. COMPARISON: None. FINDINGS: RIGHT: The right common carotid artery (CCA) peak systolic velocity (PSV) is 126 cm/s. The right internal carotid artery (ICA) PSV is 63 cm/s. The right ICA end- diastolic velocity (EDV) is 12 cm/s. The right ICA/CCA PSV ratio is 0.5. Grayscale and color Doppler images yield an estimate of <50% diameter reduction from plaque in the ICA. There is antegrade flow in the right vertebral artery. LEFT: The left CCA PSV is 102 cm/s. The left ICA PSV is 47 cm/s. The left ICA EDV is 8 cm/s. The left ICA/CCA PSV ratio is 0.5. Grayscale and color Doppler images yield an estimate of >=50% diameter reduction from plaque in the ICA. There is antegrade flow in the left vertebral artery. IMPRESSION: 1. <50% stenosis in the right internal carotid artery. 2. Near-occlusion stenosis in the left internal carotid artery. Consider neck CTA. Reviewed, dictated and finalized at location E. IMPRESSION: 1. <50% stenosis in the right internal carotid artery. 2. Near-occlusion stenosis in the left internal carotid artery. Consider neck C TA.
--- OUTSIDE RECORDS SUMMARY | 2025-06-21 15:48 | XMS_ITS | Patient Health Record ---
Author Organization [facility] Office Address [address] [place] [address] Care Team Providers Care Alarm Mechanic Name Role Phone Bao Collier Unavailable [phone] JUAN GORE Unavailable Unavailable Reason For Referral [...] Status Risk Notes Problem Diabetic renal disease (779892162) Type 2 diabetes mellitus with diabetic chronic kidney disease (E11.22) Active confirmed Problem Hyperlipidemia (23157188) Hyperlipidemia, unspecified (E78.5) Active confirmed Problem Cerebral infarction (533434443) Cerebral infarction, unspecified (I63.9) Active confirmed Problem Peripheral vascular disease (994936658) Peripheral vascular disease, unspecified (I73.9) Active confirmed Problem Renal osteodystrophy (88802623) Renal osteodystrophy (N25.0) Active confirmed Problem Secondary hyperparathyroidism of renal origin (25936486) Secondary hyperparathyroidism of renal origin (N25.81) Active confirmed Problem Proteinuria (47522289) Proteinuria, unspecified (R80.9) Active confirmed Problem Tobacco use (801641698) Tobacco use (Z72.0) Active confirmed Problem Essential hypertension (18346751) Essential hypertension (I10) Active confirmed Problem Chronic kidney disease stage 3B (disorder) (249021048) Chronic kidney disease, stage 3b (N18.32) Active confirmed Encounters Encounter Location Date Provider Diagnosis [place] [facility] [address] [facility] [address] [place] [address] 12/12/2024 Bao Collier Chronic kidney disea se, stage 3b N18.32 ; Essential hypertension I10 ; Renal osteodystrophy N25.0 ; Secondary hyperparathyroidism of renal origin N25.81 ; Type 2 diabetes mellitus with diabetic chronic kidney disease E11.22 ; Hyperlipidemia, unspecified E78.5 ; Tobacco use Z72.0 ; Cerebral infarction, unspecified I63.9 and Peripheral vascular disease, unspecified I73.9 [place] [facility] [address] [place] [address] 02/01/2025 Bao Collier Chronic kidney disea se, stage 3b N18.32 ; Essential hypertension I10 ; Renal osteodystrophy N25.0 ; Secondary hyperparathyroidism of renal origin N25.81 ; Type 2 diabetes mellitus with diabetic chronic kidney disease E11.22 ; Hyperlipidemia, unspecified E78.5 ; Tobacco use Z72.0 ; Cerebral infarction, unspecified I63.9 ; Peripheral vascular disease, unspecified I73.9 and Proteinuria, unspecified R80.9 [facility] [address] [place] [address] 03/08/2025 Bao Collier Chronic kidney disea se, stage 3b N18.32 ; Essential hypertension I10 ; Renal osteodystrophy N25.0 ; Secondary hyperparathyroidism of renal origin N25.81 ; Type 2 diabetes mellitus with diabetic chronic kidney disease E11.22 ; Hyperlipidemia, unspecified E78.5 ; Tobacco use Z72.0 ; Cerebral infarction, unspecified I63.9 ; Peripheral vascular disease, unspecified I73.9 and Proteinuria, unspecified R80.9 [place] [facility] [address] [place] [address] 05/03/2025 Bao Collier [place] [facility] [address] [place] [address] 02/01/2025 Bao Collier [place] [facility] [address] [place] [address] 03/08/2025 Bao Collier Assessments Encounter Date Diagnosis [...]
== END 2025-06-21 15:46 | disposition home or self-care (01) ==
PROVIDERS: PCP Internal Medicine; Visit Provider Internal Medicine
DX: I65.21 Occlusion and stenosis of right carotid artery (principal)
CPT/HCPCS: 93880

== ENCOUNTER 2025-08-09 11:24 | Outpatient (CLI) | payer MEDICARE, SELFPAY ==
--- OUTSIDE RECORDS SUMMARY | 2024-12-12 08:15 | XMS_ITS ---
Author Organization [facility] Address [address] [place] [address] Care Team Providers Care Custodial Services Manager Name Role Phone Nando Bao Unavailable [phone] BAO JUAN Unavailable Unavailable Problems Problem Type SNOMED Code ICD Code Onset Dates Problem Status W/U Status Risk Notes Problem Chronic kidney disease stage 3B (disorder) (071914861) Chronic kidney disease, stage 3b (N18.32) Active confirmed Problem Essential hypertension (28164478) Essential hypertension (I10) Active confirmed Problem Renal osteodystrophy (13367972) Renal osteodystrophy (N25.0) Active confirmed Problem Secondary hyperparathyroidism of renal origin (16616089) Secondary hyperparathyroidism of renal origin (N25.81) Active confirmed Problem Diabetic renal disease (816994229) Type 2 diabetes mellitus with diabetic chronic kidney disease (E11.22) Active confirmed Problem Hyperlipidemia (40171601) Hyperlipidemia, unspecified (E78.5) Active confirmed Problem Tobacco use (573694061) Tobacco use (Z72.0) Active confirmed Problem Cerebral infarction (378856981) Cerebral infarction, unspecified (I63.9) Active confirmed Problem Peripheral vascular disease (880124425) Peripheral vascular disease, unspecified (I73.9) Active confirmed Encounters Encounter Location Date Provider Diagnosis [facility] [address] [place] [address] 12/12/2024 Bao Collier Chronic kidney disea se, stage 3b N18.32 ; Essential hypertension I10 ; Renal osteodystrophy N25.0 ; Secondary hyperparathyroidism of renal origin N25.81 ; Type 2 diabetes mellitus with diabetic chronic kidney disease E11.22 ; Hyperlipidemia, unspecified E78.5 ; Tobacco use Z72.0 ; Cerebral infarction, unspecified I63.9 and Peripheral vascular disease, unspecified I73.9 Assessments Encounter Date Diagnosis (ICD Code) Assessment Notes Treatment Notes Treatment Clinical Notes Section Notes 12/12/2024 Chronic kidney disea se, stage 3b (ICD-10 - N18.32) 12/12/2024 Essential hypertensi on (ICD-10 - I10) 12/12/2024 Renal osteodystrophy (ICD-10 - N25.0) 12/12/2024 Secondary hyperparathyroidism of renal origin (ICD-10 - N25.81) 12/12/2024 Type 2 diabetes mellitus with diabetic chronic kidney disease (ICD-10 - E11.22) 12/12/2024 Hyperlipidemia, unspecified (ICD-10 - E78.5) 12/12/2024 Tobacco use (ICD-10 - Z72.0) 12/12/2024 Cerebral infarction, unspecified (ICD-10 - I63.9) 12/12/2024 Peripheral vascular disease, unspecified (ICD-10 - I73.9) Plan Of Treatment No Information Progress Notes * Greg WOOTEN EDOB:1955 (70 yo M)Acc No.[id number]:12/12/2024 Progress Notes Patient: Greg PABON Provider: Alexander BAILON MD, F.A.C.P, F.A.S.N. :1955 A ge:69 Y S ex:Male Date:12/12/2024 Address:[address] [place] [address] Subjective: * Chief Complaints: * * Medical History: Objective: * Vitals: Assessment: * Assessment: 1. C hronic kidney disease, stage 3b - N18.32 (Primary) 2 . E ssential hypertension - I10 3 . R enal osteodystrophy - N25.0 4 . S econdary hyperparathyroidism of renal origin - N25.81 5 . T ype 2 diabetes mellitus with diabetic chronic kidney disease - E11.22 6 . H yperlipidemia, unspecified - E78.5 7 . T obacco use - Z72.0 8 . C erebral infarction, unspecified - I63.9 9 . P eripheral vascular disease, unspecified - I73.9 ? Plan: * Treatment: * Billing Information: * Visit Code: 57514 Office Visit, New Pt., Level 5. * Procedure Codes: * Electronic signature of Anais Collier MD on 08/09/2025 at 11:37 AM TOILET AND LAUNDRY SOAP SUPERVISOR Sign off status: Pending * Provider: Alexander BAILON MD, F.A.C.P, F.A.S.N. Date: 0 12/12/2024 Generated for Printing/Faxing/eTransmitting on: 1 10/09/2024 11:37 AM TOILET AND LAUNDRY SOAP SUPERVISOR
--- OUTSIDE RECORDS SUMMARY | 2025-01-02 08:30 | XMS_ITS ---
Author Organization [facility] Office Address [address] [facility] [address] [facility] [address] [place] [address] Care Team Providers Care Returns Processor Name Role Phone Bao Collier Unavailable [phone] JUAN GORE Unavailable Unavailable Encounters Encounter Location Date Provider Diagnosis [place] [facility] [address] [facility] [address] [place] [address] 01/02/2025 Bao Collier Plan Of Treatment No Information Progress Notes * Greg WOOTEN EDOB:1955 (70 yo M)Acc No.[id number]:01/02/2025 Progress Notes Patient: Greg PABON Provider: Alexander BAILON MD, Rachel.Gerardo.C.P, F.A.S.N. :1955 A ge:69 Y S ex:Male Date:01/02/2025 Address:[facility] [place] [address] Subjective: * Chief Complaints: * * Medical History: Objective: * Vitals: Assessment: Plan: * Treatment: * Billing Information: * Visit Code: * Procedure Codes: * Electronic signature of Anais Collier MD on 08/09/2025 at 11:37 AM [employer] Sign off status: Pending * Provider: Alexander BAILON MD, F.Gerardo.C.P, F.A.S.N. Date: 0 01/02/2025 Generated for Printing/Faxing/eTransmitting on: 10/09/2024 11:37 AM [employer]
--- OUTSIDE RECORDS SUMMARY | 2025-02-01 08:00 | XMS_ITS ---
Author Organization [facility] Address [address] [place] [address] Care Team Providers Care Director Of State Name Role Phone Nando Bao Unavailable [phone] JUAN GORE Unavailable Unavailable Problems Problem Type SNOMED Code ICD Code Onset Dates Problem Status W/U Status Risk Notes Problem Proteinuria (08997717) Proteinuria, unspecified (R80.9) Active confirmed Encounters Encounter Location Date Provider Diagnosis [place] [facility] [address] [facility] [facility] [place] [address] 02/01/2025 Bao Collier Chronic kidney disea se, stage 3b N18.32 ; Essential hypertension I10 ; Renal osteodystrophy N25.0 ; Secondary hyperparathyroidism of renal origin N25.81 ; Type 2 diabetes mellitus with diabetic chronic kidney disease E11.22 ; Hyperlipidemia, unspecified E78.5 ; Tobacco use Z72.0 ; Cerebral infarction, unspecified I63.9 ; Peripheral vascular disease, unspecified I73.9 and Proteinuria, unspecified R80.9 Assessments Encounter Date Diagnosis (ICD Code) Assessment Notes Treatment Notes Treatment Clinical Notes Section Notes 02/01/2025 Chronic kidney disea se, stage 3b (ICD-10 - N18.32) 02/01/2025 Essential hypertensi on (ICD-10 - I10) 02/01/2025 Renal osteodystrophy (ICD-10 - N25.0) 02/01/2025 Secondary hyperparathyroidism of renal origin (ICD-10 - N25.81) 02/01/2025 Type 2 diabetes mellitus with diabetic chronic kidney disease (ICD-10 - E11.22) 02/01/2025 Hyperlipidemia, unspecified (ICD-10 - E78.5) 02/01/2025 Tobacco use (ICD-10 - Z72.0) 02/01/2025 Cerebral infarction, unspecified (ICD-10 - I63.9) 02/01/2025 Peripheral vascular disease, unspecified (ICD-10 - I73.9) 02/01/2025 Proteinuria, unspecified (ICD-10 - R80.9) Plan Of Treatment No Information Progress Notes * Greg WOOTEN EDOB:1955 (70 yo M)Acc No.[id number]:02/01/2025 Progress Notes Patient: Greg PABON Provider: Alexander BAILON MD, F.A.C.P, F.A.S.N. :1955 A ge:69 Y S ex:Male Date:02/01/2025 Address:[address] [place], [place] [address] [address] Subjective: * Chief Complaints: * * Medical [...] P eripheral vascular disease, unspecified - I73.9 & #160; 1 0. P roteinuria, unspecified - R80.9 Plan: * Treatment: * Billing Information: * Visit Code: 87505 Office Visit, Est Pt., Level 4. * Procedure Codes: * Electronic signature of Aanis Collier MD on 08/09/2025 at 11:37 AM CONVEYOR TENDER Sign off status: Pending * Provider: Alexander BAILON MD, F.A.C.P, F.A.S.N. Date: 0 02/01/2025 Generated for Printing/Faxing/eTransmitting on: 1 10/09/2024 11:37 AM CONVEYOR TENDER
--- OUTSIDE RECORDS SUMMARY | 2025-03-08 09:15 | XMS_ITS ---
Author Organization [facility] Address [address] [facility] [address] [facility] [address] [place] [address] Care Team Providers Care Sheriff'S Officer Name Role Phone Nando Bao Unavailable [phone] BAO JUAN Unavailable Unavailable Encounters Encounter Location Date Provider Diagnosis [place] [facility] [address] [facility] 15 [place] [address] 03/08/2025 Bao Collier Chronic kidney disea se, stage [...] Treatment Notes Treatment Clinical Notes Section Notes 03/08/2025 Chronic kidney disea se, stage 3b (ICD-10 - N18.32) 03/08/2025 Essential hypertensi on (ICD-10 - I10) 03/08/2025 Renal osteodystrophy (ICD-10 - N25.0) 03/08/2025 Secondary hyperparathyroidism of renal origin (ICD-10 - N25.81) 03/08/2025 Type 2 diabetes mellitus with diabetic chronic kidney disease (ICD-10 - E11.22) 03/08/2025 Hyperlipidemia, unspecified (ICD-10 - E78.5) 03/08/2025 Tobacco use (ICD-10 - Z72.0) 03/08/2025 Cerebral infarction, unspecified (ICD-10 - I63.9) 03/08/2025 Peripheral vascular disease, unspecified (ICD-10 - I73.9) 03/08/2025 Proteinuria, unspecified (ICD-10 - R80.9) Plan Of Treatment No Information Progress Notes * Greg WOOTEN EDOB:1955 (70 yo M)Acc No.[id number]:03/08/2025 Progress Notes Patient: Greg PABON Provider: Alexander BAILON MD, F.Gerardo.Merna.P, F.A.S.N. :1955 A ge:69 Y S ex:Male Date:03/08/2025 Address:[address] [place] [place] [address] Subjective: * Chief Complaints: * * Medical [...] Treatment: * Billing Information: * Visit Code: 40095 Office Visit, Est Pt., Level 4. * Procedure Codes: * Electronic signature of Anais Collier MD on 08/09/2025 at 11:37 AM LEATHER CUTTER Sign off status: Pending * Provider: Alexander BAILON MD, F.Gerardo.Merna.P, F.A.S.N. Date: 0 03/08/2025 Generated for Printing/Faxing/eTransmitting on: 10/09/2024 11:37 AM LEATHER CUTTER
--- OUTSIDE RECORDS SUMMARY | 2025-05-03 08:45 | XMS_ITS ---
Author Organization [facility] est[facility] Office Address [address] [facility] [address] [facility] [address] [place] [address] Care Team Providers Care Educational Administration Teacher Name Role Phone Nando Bao Unavailable [phone] JUAN GORE Unavailable Unavailable Encounters Encounter Location Date Provider Diagnosis [place] [facility] [address] [facility] [address] [place] [address] 05/03/2025 Bao Collier Plan Of Treatment No Information Progress Notes * Greg WOOTEN EDOB:1955 (70 yo M)Acc No.[id number]:05/03/2025 Progress Notes Patient: Greg PABON Provider: Alexander BAILON MD, Rachel.Gerardo.C.P, F.A.S.N. :1955 A ge:69 Y S ex:Male Date:05/03/2025 Address[place] [place] [address] Subjective: * Chief Complaints: Objective: Assessment: Plan: * Billing Information: * Visit Code: * Procedure Codes: * Electronic signature of Anais Collier MD on 08/09/2025 at 11:37 AM STRIP CATCHER Sign off status: Pending * Provider: Alexander BAILON MD, F.Gerardo.C.P, F.A.S.N. Date: 0 05/03/2025 Generated for Printing/Faxing/eTransmitting on: 10/09/2024 11:37 AM STRIP CATCHER
--- NOTE | ~2025-08-09 | CT_ITS ---
EXAMINATION: CT lung screening DATE: 08/09/2025 12:04 INDICATION: personal hx of nicotine dependence hyperlipid TECHNIQUE: Computed tomography (CT) of the chest was performed without intravenous contrast. Additional 3D reconstructions utilizing coronal maximum intensity projection (MIP) were performed. Automated exposure control and iterative reconstruction technique were employed. The dose-length product was 81 .86 mGy-cm. COMPARISON: Chest CT dated 06/19/2025 and PET/CT dated 06/30/2021 FINDINGS: Mild emphysema and chronic pleural-parenchymal scarring at the bilateral apices, right greater than left. There has been interval improvement in patchy consolidation previously seen in the right lower lobe consistent with resolving pneumonia. No significant interval change in numerous scattered small calcified and noncalcified centrilobular nodules throughout both lungs most prominent in the right upper lobe, bilateral lower lobes and lingula where there is associated thin and thick linear bands of atelectasis/scarring as well as mild bronchiectatic changes with some mucous plugging, all likely sequela of recurrent chronic infections including atypical fungal/microtrabecular infection such as mycobacterium avium intracellulare (HODAN). The majority of the nodules measure <2 mm with known identified measuring over 4 mm. This can be seen but has progressed since PET/CT dated 06/30/2021. Measure greater than No pulmonary edema or pleural effusion. Prominent calcified mediastinal and bilateral hilar l ymph nodes consistent with old granulomatous disease. Heart size is normal. Atherosclerotic coronary artery calcifications. No pericardial effusion. Thoracic aorta is normal in caliber. No pathologically enlarged thoracic lymphadenopathy. Fusiform infrarenal abdominal aortic aneurysm measuring up to 4.2 cm in maximal diameter measured on the coronal images. Visualized upper abdomen is otherwise unremarkable. Mild thoracic kyphosis with chronic mild anterior wedging at T10, L1 and L2. Severe lower cervical, mild thoracic and moderate lumbar spondylosis. IMPRESSION: 1. Lung-RADS category 2: Benign appearance or behavior. Continue annual screening with noncontrast low-dose chest CT in 12 months. 2. No significant change in numerous tiny centrilobular nodules with some associated bronchiectasis and pleural parenchymal scarring likely sequela of chronic/recurrent infection such as HODAN. 3. 4.2 cm infrarenal abdominal aortic aneurysm. Reviewed, dictated and finalized at location A. INTERN IMPRESSION: 1. Lung-RADS category 2: Benign appearance or behavior. Continue annual screeni ng with noncontrast low-dose chest CT in 12 months. 2. No significant change in numerous tiny centrilobular nodules with some assoc iated bronchiectasis and pleural parenchymal scarring likely sequela of chronic /recurrent infection such as HODAN. 3. 4.2 cm infrarenal abdominal aortic aneurysm.
--- OUTSIDE RECORDS SUMMARY | 2025-08-09 11:37 | XMS_ITS | Patient Health Record ---
Author Organization [facility] Office Address [address] [place] [address] Care Team Providers Care Sports Centre Manager Name Role Phone Bao Collier Unavailable [phone] JUAN GORE Unavailable Unavailable Reason For Referral [...] Status Risk Notes Problem Diabetic renal disease (099302219) Type 2 diabetes mellitus with diabetic chronic kidney disease (E11.22) Active confirmed Problem Hyperlipidemia (07790620) Hyperlipidemia, unspecified (E78.5) Active confirmed Problem Cerebral infarction (149280250) Cerebral infarction, unspecified (I63.9) Active confirmed Problem Peripheral vascular disease (431705750) Peripheral vascular disease, unspecified (I73.9) Active confirmed Problem Renal osteodystrophy (95995476) Renal osteodystrophy (N25.0) Active confirmed Problem Secondary hyperparathyroidism of renal origin (78098374) Secondary hyperparathyroidism of renal origin (N25.81) Active confirmed Problem Proteinuria (05776646) Proteinuria, unspecified (R80.9) Active confirmed Problem Tobacco use (916687404) Tobacco use (Z72.0) Active confirmed Problem Essential hypertension (67851232) Essential hypertension (I10) Active confirmed Problem Chronic kidney disease stage 3B (disorder) (129439182) Chronic kidney disease, stage 3b (N18.32) Active confirmed Encounters Encounter Location Date Provider Diagnosis [place] [facility] [address] [facility] [address] [place] [address] 12/12/2024 Bao Collier Chronic kidney disea se, stage 3b N18.32 ; Essential hypertension I10 ; Renal osteodystrophy N25.0 ; Secondary hyperparathyroidism of renal origin N25.81 ; Type 2 diabetes mellitus with diabetic chronic kidney disease E11.22 ; Hyperlipidemia, unspecified E78.5 ; Tobacco use Z72.0 ; Cerebral infarction, unspecified I63.9 and Peripheral vascular disease, unspecified I73.9 [place] [facility] [address] [place] [address] 02/01/2025 Bao Collier Chronic kidney disea se, stage 3b N18.32 ; Essential hypertension I10 ; Renal osteodystrophy N25.0 ; Secondary hyperparathyroidism of renal origin N25.81 ; Type 2 diabetes mellitus with diabetic chronic kidney disease E11.22 ; Hyperlipidemia, unspecified E78.5 ; Tobacco use Z72.0 ; Cerebral infarction, unspecified I63.9 ; Peripheral vascular disease, unspecified I73.9 and Proteinuria, unspecified R80.9 [facility] [address] [place] [address] 03/08/2025 Bao Collier Chronic kidney disea se, stage 3b N18.32 ; Essential hypertension I10 ; Renal osteodystrophy N25.0 ; Secondary hyperparathyroidism of renal origin N25.81 ; Type 2 diabetes mellitus with diabetic chronic kidney disease E11.22 ; Hyperlipidemia, unspecified E78.5 ; Tobacco use Z72.0 ; Cerebral infarction, unspecified I63.9 ; Peripheral vascular disease, unspecified I73.9 and Proteinuria, unspecified R80.9 [place] [facility] [address] [place] [address] 05/03/2025 Bao Collier [place] [facility] [address] [place] [address] 02/01/2025 Bao Collier [place] [facility] [address] [place] [address] 03/08/2025 Bao Collier Assessments Encounter Date Diagnosis [...]
== END 2025-08-09 11:25 | disposition home or self-care (01) ==
PROVIDERS: PCP Internal Medicine; Visit Provider Internal Medicine Cardiovascular Disease
DX: Z12.2 Encounter for screening for malignant neoplasm of respiratory organs (principal); Z87.891 Personal history of nicotine dependence
CPT/HCPCS: 71271

== ENCOUNTER 2025-08-27 10:19 | Outpatient (CLI) | payer MEDICARE, SELFPAY ==
--- NOTE | ~2025-08-27 | PE_ITS ---
EXAMINATION: PET skull to mid thigh DATE: 08/27/2025 13:02 INDICATION: Lung mass TECHNIQUE: Blood glucose level was 103 mg/dL. 10.955 mCi of 18- fluorodeoxyglucose (18-FDG) was administered i.v. Low dose computed tomography (CT) images were acquired from the base of the brain to the proximal thighs for attenuation correction and anatomic localization. Positron emission tomography (PET) images were acquired in the same distribution beginning 60 minutes after injection. Images including fused PET/CT images were reconstructed in axial, coronal, and sagittal planes. Automated exposure control technique was employed. The dose-length product was 526.31mGy-cm. COMPARISON: CT studies dated 08/09/2025 and 06/19/2025 and PET/CT dated 06/30/2021 FINDINGS: Head/neck: There is symmetric increased activity in the oral cavity, palatine tonsils, laryngeal muscles and ocular muscles without CT correlate, likely physiologic. There are approximately 1 cm foci of focally increased uptake at the posterior right and posterior inferior left parotid glands with maximal SUV values of 7.2 on the left and 4.3 on the right. No pathologically enlarged cervical lymphadenopathy or other suspicious foci of increased FDG uptake in the visualized head or neck. Chest: Mild emphysema with stable appearance since 06/19/2025 of mild to moderate right and minimal left apical pleural-parenchymal scarring. There is approximately 1 cm focus of mild uptake with maximal SUV of 4.0 associated with the pleural parenchymal scarring at the right apex along side the posterior right second rib. There are several scattered bilateral calcified pulmonary nodules which along with numerous calcified bilateral hilar and mediastinal lymph nodes are consistent with old granulomatous disease. There is an approximately 9 mm triangular nodule at the junction of the superior and basilar segments of the right lower lobe with maximal SUV of 1.7. There is more prominent increased FDG activity with maximal SUV of 5.9 associated with a recently evolving peripheral wedge-shaped region of consolidation with localized architectural distortion indicating some associated volume loss at the lateral basilar segment right lower lobe. This currently measures 4.4 x 2.0 cm, decreased from 5.4 x 2.3 cm on the most recent CT. On 06/19/2025 the consolidation appear more patchy and widespread without the associated volume loss seen on the current study. The temporal pattern of evolution favors resolving pneumonia over malignancy. No significant FDG uptake associated with regions of chronic tree-in-bud opacities in the anterobasilar segment of the right lower lobe, the basilar segments of the left lower lobe and the anterior and basilar lingula. There is mild FDG uptake with maximal SUV of 4.0 cm with a couple 1.5-2 cm peripheral region of consolidation also with some architectural distortion and volume loss in the lateral basilar segment of the left lower lobe which have developed since the study from less than 3 weeks prior also favoring an infectious/inflammatory etiology. No pleural effusion. Heart size is normal. Atherosclerotic coronary artery calcific location. No pericardial effusion. Thoracic aorta is normal in caliber. There is mild FDG activity extending throughout the esophagus was prom pt at the level of the farida with maximal SUV of 4.9. No abnormal increased FDG uptake associated with a few mildly enlarged likely reactive retroesophageal mediastinal lymph nodes. Small sliding-type hiatal hernia. Abdomen/pelvis/proximal thighs: Physiologic renal accumulation and excretion of FDG activity in the bladder and, right kidney and along the right ureter. Asymmetric decreased uptake by the left kidney which appears smaller than the left consistent with likely bilateral renal insufficiency and mild to moderate atrophy. Normal degree and heterogenous pattern of increased uptake throughout the liver without radiologic correlate or dominant FDG avid lesion. The gallbladder, pancreas, spleen and bilateral adrenal glands are normal. Mild uptake scattered throughout the bowels most prominent in the cecum and ascending colon without radiologic correlate, also likely physiologic. There is calcified atherosclerosis of the aorta and many of the other arteries. Fusiform infrarenal abdominal aortic aneurysm measuring up to 4.1 cm maximal diameter. No other abnormal foci of increased FDG uptake or pathologically enlarged lymphadenopathy in the abdomen, pelvis or proximal thighs. Musculoskeletal: Mild lumbar levocurvature with moderate cervical and thoracic and moderate to severe lumbar spondylosis. Sclerotic bone islands without abnormal FDG uptake at the left posterior L5 vertebral body and at the right femoral head. No suspicious lytic, blastic or abnormally FDG avid bone lesions.. IMPRESSION: 1. Mild uptake associated with a peripheral wedge-shaped region of consolidation in the right lower lobe which has demonstrated significant resolution and more recent decrease in size which would favor atelectasis/scarring pneumonia or potentially pulmonary infarct. Recommend continued follow-up with low-dose noncontrast chest CT in 3 months. 2. A couple additional small regions of peripheral consolidation in the posterior left lower lobe with mild increased FDG uptake which have developed since the most recent CT and also most likely infectious/inflammatory in etiology. 3. Stable appearance of chronic tree-in-bud opacities in the bilateral lower lobes and lingula consistent with sequela of chronic infection including atypical infection such as HODAN. 4. No lesion suspicious for malignancy/metastatic disease in the abdomen or pelvis. 5. Foci of mild increased uptake at the posterior aspect of the both the left and right parotid lobes without evident correlate on the noncontrast imaging and differential would include primary prostate neoplasm either benign or malignant or FDG avid lymph nodes which could be reactive, metastatic disease or lymphoma. Consider further evaluation with contrast-enhanced CT of the neck. Reviewed, dictated and finalized at location A. [facility] IMPRESSION: 1. Mild uptake associated with a peripheral wedge-shaped region of consolidatio n in the right lower lobe which has demonstrated significant resolution and mor e recent decrease in size which would favor atelectasis/scarring pneumonia or p otentially pulmonary infarct. Recommend continued follow-up with low-dose nonco ntrast chest CT in 3 months. 2. A couple additional small regions of peripheral consolidation in the posteri or left lower lobe with mild increased FDG uptake which have developed since th e most recent CT and also most likely infectious/inflammatory in etiology. 3. Stable appearance of chronic tree-in-bud opacities in the bilateral lower lo bes and lingula consistent with sequela of chronic infection including atypical infection such as HODAN. 4. No lesion suspicious for malignancy/metastatic disease in the abdomen or pel vis. 5. Foci of mild increased uptake at the posterior aspect of the both the left a nd right parotid lobes without evident correlate on the noncontrast imaging and differential would include primary prostate neoplasm either benign or malignan t or FDG avid lymph nodes which could be reactive, metastatic disease or lympho ma. Consider further evaluation with contrast-enhanced CT of the neck.
== END 2025-08-27 10:20 | disposition home or self-care (01) ==
PROVIDERS: PCP Internal Medicine; Visit Provider Internal Medicine Pulmonary Disease
DX: R91.8 Other nonspecific abnormal finding of lung field (principal)
CPT/HCPCS: 78815; A9552